=== PATIENT | female | born 1945 | race African-American/Black ===

== ENCOUNTER 2022-05-01 15:25 | Inpatient (IN) | payer MEDICARE ==
[~2022-05-01] VITALS: Ht 165.1 cm; Wt 114.8 kg
[2022-05-01 16:39] LABS: CHLORIDE 105 mEq/L (98-107)
[2022-05-01 16:43] LABS: BASOPHILS % 0.9 % (0.0-2.0); EOSINOPHILS % 4.1 % (0.0-5.0); HEMATOCRIT. 36.4 % (36.0-48.0); HEMOGLOBIN. 11.3 g/dL (12.0-16.0); LYMPHOCYTES % 13.6 % (20.0-50.0); MEAN CORPUSCULAR HEMOGLOBIN 25.5 pg (28.0-32.0); MEAN PLATELET VOLUME 8.7 fl (7.4-10.4); MONOCYTES % 14.5 % (2.0-8.0); NEUTROPHILS % 66.9 % (40.0-76.0); PLATELET 177 x1000/uL (130-400); RED BLOOD CELL COUNT 4.45 mill/uL (4.2-5.4); RED CELL DISTRIBUTION WIDTH 18.9 % (11.6-14.6)
[2022-05-01] MEDS ORDERED: PIPERACILLIN/TAZ 3.375G PREMIX 50 ML IV NR (18:11)
[2022-05-01] MEDS ORDERED: VANCOMYCIN 1GM PMX (XELLIA) 200 ML IV NR (18:15)
[2022-05-01] MEDS ORDERED: VANCOMYCIN 1G PREMIX 200 ML IV NR (20:45)
[2022-05-01] MEDS ORDERED: ACETAMINOPHEN 325MG TABLET PO PRN ×2 (21:00)
[2022-05-01] MEDS: FAMOTIDINE 20MG TABLET PO SCH (21:00)
[2022-05-01] MEDS ORDERED: NITROGLYCERIN 0.4MG TABLET SL SL PRN (21:00)
[2022-05-01] MEDS ORDERED: GUAIFENESIN 200MG/10ML SUGAR FREE UDC PO PRN (21:00)
[2022-05-01] MEDS ORDERED: MAGNESIUM/ALUMINUM HYDROXIDE/SIMETHICONE 30ML UDC PO PRN (21:00)
[2022-05-01] MEDS ORDERED: DOCUSATE SODIUM 100MG CAPSULE PO PRN (21:00)
[2022-05-01] MEDS ORDERED: ONDANSETRON HCL 4MG/2ML INJ IV PRN (21:00)
[2022-05-01] MEDS ORDERED: ZOLPIDEM TARTRATE 5MG TABLET PO PRN (21:00)
[2022-05-01] MEDS ORDERED: CLONIDINE 0.1MG TABLET PO PRN (21:00)
[2022-05-01] MEDS ORDERED: IPRATROPIUM/ALBUTEROL 0.5-3(2.5)MG/3ML NEB NEB PRN (21:00)
[2022-05-01 21:35] LABS: T4 FREE 1.09 ng/dL (0.76-1.46)
[2022-05-01 21:51] LABS: FOLIC ACID (FOLATE) SERUM 8.1 ng/mL (>5.38)
[2022-05-01] MEDS: ASCORBIC ACID 500 MG TABLET PO SCH (22:59)
[2022-05-01] MEDS: ENOXAPARIN 40MG/0.4ML SYR SUBCUT SCH (22:59)
[2022-05-01 23:38] LABS: CREATINE KINASE 13 IU/L (26-192); CREATINE KINASE MB FRACTION < 1.0 ng/mL (0.5-3.6)
[2022-05-02] VITALS (7 sets, daily range): BP systolic 99–135; BP diastolic 48–69
[2022-05-02] MEDS ORDERED: APIX2.5T PO (04:03)
[2022-05-02] MEDS ORDERED: SERT20OR PO (04:03)
[2022-05-02] MEDS ORDERED: IPRATROPIUM BROMIDE (05:55)
[2022-05-02] MEDS ORDERED: PANT40TA51 MT (05:55)
[2022-05-02] MEDS ORDERED: LEVA0.6320 NEB (05:55)
[2022-05-02] MEDS ORDERED: ONDA4TAB50 PO (05:55)
[2022-05-02] MEDS ORDERED: METO-539 PO (05:55)
[2022-05-02] MEDS ORDERED: DIGO125T80 PO (05:55)
[2022-05-02] MEDS ORDERED: SERT20OR6 PO (05:55)
[2022-05-02] MEDS ORDERED: APIX5TAB PO (05:55)
[2022-05-02] MEDS ORDERED: ATOR10TA69 PO (05:55)
[2022-05-02] MEDS ORDERED: FURO40TA5 PO (05:55)
[2022-05-02] MEDS ORDERED: PIPERACILLIN/TAZ 3.375G PREMIX 50 ML IV SCH (06:00)
[2022-05-02] MEDS ORDERED: VANCOMYCIN 750 MG in DEXT 5% WATER 250 ML IV SCH (09:00)
[2022-05-02] MEDS: ZINC SULFATE 220 MG ( 50 ) CAPSULE PO SCH (09:51)
[2022-05-02] MEDS: FAMOTIDINE 20MG TABLET PO SCH ×2 (09:52→22:35)
[2022-05-02] MEDS: DEXAMETHASONE 10 MG/ML VIAL IV SCH (09:52)
[2022-05-02] MEDS: ASCORBIC ACID 500 MG TABLET PO SCH ×2 (09:52→22:35)
[2022-05-02] MEDS: CHOLECALCIFEROL (D3) 1000 UNIT TABLET PO SCH (09:52)
[2022-05-02] MEDS: ASPIRIN 81MG EC TABLET PO SCH (09:52)
[2022-05-02 11:27] LABS: HEMATOCRIT. 36.1 % (36.0-48.0); HEMOGLOBIN. 11.1 g/dL (12.0-16.0); MEAN CORPUSCULAR HEMOGLOBIN 25.3 pg (28.0-32.0); MEAN CORPUSCULAR VOLUME 82.3 fL (81.0-99.0); MEAN PLATELET VOLUME 8.7 fl (7.4-10.4); PLATELET 163 x1000/uL (130-400); RED BLOOD CELL COUNT 4.39 mill/uL (4.2-5.4)
[2022-05-02 11:38] LABS: CHLORIDE 103 mEq/L (98-107)
[2022-05-02 11:46] LABS: CREATINE KINASE 16 IU/L (26-192); CREATINE KINASE MB FRACTION < 1.0 ng/mL (0.5-3.6)
[2022-05-02 11:49] LABS: PHOSPHORUS 2.4 mg/dL (2.5-4.9)
[2022-05-02] MEDS: PIPERACILLIN/TAZOBACTAM 3.375 G in DEXTROSE 5% WATER 50 ML IV SCH ×2 (14:15→22:35)
[2022-05-02 14:51] LABS: PLATELET ESTIMATE NORMAL
[2022-05-02] MEDS ORDERED: ALBUTEROL 6.7GM HFA INHALER ORI PRN (16:00)
[2022-05-02] MEDS: ENOXAPARIN 40MG/0.4ML SYR SUBCUT SCH (22:35)
[2022-05-03] VITALS: BP 107/48
[2022-05-03 04:00] VITALS: BP 124/66
[2022-05-03] MEDS: PIPERACILLIN/TAZOBACTAM 3.375 G in DEXTROSE 5% WATER 50 ML IV SCH ×3 (05:20→21:53)
[2022-05-03 08:00] VITALS: BP 93/51
[2022-05-03] MEDS: CHOLECALCIFEROL (D3) 1000 UNIT TABLET PO SCH (08:30)
[2022-05-03] MEDS: ZINC SULFATE 220 MG ( 50 ) CAPSULE PO SCH (08:30)
[2022-05-03] MEDS: SERTRALINE HCL 50MG TABLET PO SCH (08:30)
[2022-05-03] MEDS: ASCORBIC ACID 500 MG TABLET PO SCH ×2 (08:30→21:54)
[2022-05-03] MEDS: DEXAMETHASONE 10 MG/ML VIAL IV SCH (08:30)
[2022-05-03] MEDS: FAMOTIDINE 20MG TABLET PO SCH (08:30)
[2022-05-03] MEDS: ASPIRIN 81MG EC TABLET PO SCH ×2 (08:30→08:33)
[2022-05-03] MEDS ORDERED: VANCOMYCIN 750MG PREMIX 150 ML IV SCH (11:00)
[2022-05-03 20:00] VITALS: BP 139/76
[2022-05-03] MEDS: ENOXAPARIN 40MG/0.4ML SYR SUBCUT SCH (21:53)
[2022-05-03] MEDS: FLUTICASONE PROPIONATE 50MCG/SPRAY BOTTLE BOTHNSTRLS SCH (21:53)
[2022-05-04] VITALS: BP 155/76
[2022-05-04 04:00] VITALS: BP_SYST 131; BP_SYST 140; BP_DIAS 69; BP_DIAS 76
[2022-05-04] MEDS: PIPERACILLIN/TAZOBACTAM 3.375 G in DEXTROSE 5% WATER 50 ML IV SCH ×3 (06:31→21:11)
[2022-05-04 08:00] VITALS: BP 130/77
[2022-05-04] MEDS: ZINC SULFATE 220 MG ( 50 ) CAPSULE PO SCH (08:43)
[2022-05-04] MEDS: ASPIRIN 81MG EC TABLET PO SCH (08:43)
[2022-05-04] MEDS: DEXAMETHASONE 10 MG/ML VIAL IV SCH (08:43)
[2022-05-04] MEDS: CHOLECALCIFEROL (D3) 1000 UNIT TABLET PO SCH (08:43)
[2022-05-04] MEDS: FAMOTIDINE 20MG TABLET PO SCH (08:43)
[2022-05-04] MEDS: FLUTICASONE PROPIONATE 50MCG/SPRAY BOTTLE BOTHNSTRLS SCH ×2 (08:44→21:23)
[2022-05-04] MEDS: ASCORBIC ACID 500 MG TABLET PO SCH ×2 (08:44→21:11)
[2022-05-04] MEDS: SERTRALINE HCL 50MG TABLET PO SCH (08:44)
[2022-05-04 12:00] VITALS: BP 141/82
[2022-05-04] MEDS: VANCOMYCIN 1G PREMIX 200 ML IV SCH (12:01)
[2022-05-04 16:00] VITALS: BP 155/88
[2022-05-04 20:00] VITALS: BP 136/74
[2022-05-04] MEDS: ENOXAPARIN 30MG/0.3ML SYR SUBCUT SCH (21:13)
[2022-05-05] VITALS (7 sets, daily range): BP systolic 131–160; BP diastolic 67–86
[2022-05-05] MEDS: PIPERACILLIN/TAZOBACTAM 3.375 G in DEXTROSE 5% WATER 50 ML IV SCH ×3 (06:13→22:25)
[2022-05-05] MEDS: FLUTICASONE PROPIONATE 50MCG/SPRAY BOTTLE BOTHNSTRLS SCH ×2 (09:09→22:26)
[2022-05-05] MEDS: FAMOTIDINE 20MG TABLET PO SCH (09:09)
[2022-05-05] MEDS: DEXAMETHASONE 10 MG/ML VIAL IV SCH (09:09)
[2022-05-05] MEDS: ASCORBIC ACID 500 MG TABLET PO SCH ×2 (09:09→22:26)
[2022-05-05] MEDS: SERTRALINE HCL 50MG TABLET PO SCH (09:09)
[2022-05-05] MEDS: ZINC SULFATE 220 MG ( 50 ) CAPSULE PO SCH (09:09)
[2022-05-05] MEDS: CHOLECALCIFEROL (D3) 1000 UNIT TABLET PO SCH (09:09)
[2022-05-05] MEDS: ASPIRIN 81MG EC TABLET PO SCH (09:09)
[2022-05-05] MEDS: ENOXAPARIN 30MG/0.3ML SYR SUBCUT SCH ×2 (09:10→22:26)
[2022-05-05] MEDS: VANCOMYCIN 1G PREMIX 200 ML IV SCH (12:03)
[2022-05-06] VITALS: BP 147/76
[2022-05-06 04:00] VITALS: BP 142/80
[2022-05-06] MEDS: PIPERACILLIN/TAZOBACTAM 3.375 G in DEXTROSE 5% WATER 50 ML IV SCH ×3 (06:59→22:28)
[2022-05-06 08:00] VITALS: BP 131/73
[2022-05-06] MEDS: FLUTICASONE PROPIONATE 50MCG/SPRAY BOTTLE BOTHNSTRLS SCH (09:28)
[2022-05-06] MEDS: DEXAMETHASONE 10 MG/ML VIAL IV SCH (09:28)
[2022-05-06] MEDS: ASPIRIN 81MG EC TABLET PO SCH (09:28)
[2022-05-06] MEDS: SERTRALINE HCL 50MG TABLET PO SCH (09:28)
[2022-05-06] MEDS: FAMOTIDINE 20MG TABLET PO SCH (09:28)
[2022-05-06] MEDS: ZINC SULFATE 220 MG ( 50 ) CAPSULE PO SCH (09:28)
[2022-05-06] MEDS: CHOLECALCIFEROL (D3) 1000 UNIT TABLET PO SCH (09:28)
[2022-05-06] MEDS: ASCORBIC ACID 500 MG TABLET PO SCH ×2 (09:28→22:28)
[2022-05-06] MEDS: ENOXAPARIN 30MG/0.3ML SYR SUBCUT SCH ×2 (09:29→22:28)
[2022-05-06 12:00] VITALS: BP 136/74
[2022-05-06] MEDS: VANCOMYCIN 1G PREMIX 200 ML IV SCH (13:09)
[2022-05-06 16:00] VITALS: BP 121/79
[2022-05-06 20:00] VITALS: BP 142/76
[2022-05-07] VITALS: BP 143/85
[2022-05-07 04:00] VITALS: BP 145/77
[2022-05-07 08:00] VITALS: BP 143/87
[2022-05-07] MEDS: DEXAMETHASONE 10 MG/ML VIAL IV SCH (10:08)
[2022-05-07] MEDS: ASCORBIC ACID 500 MG TABLET PO SCH ×2 (10:08→21:08)
[2022-05-07] MEDS: SERTRALINE HCL 50MG TABLET PO SCH (10:08)
[2022-05-07] MEDS: ENOXAPARIN 30MG/0.3ML SYR SUBCUT SCH ×2 (10:08→21:08)
[2022-05-07] MEDS: FAMOTIDINE 20MG TABLET PO SCH (10:08)
[2022-05-07] MEDS: ZINC SULFATE 220 MG ( 50 ) CAPSULE PO SCH (10:09)
[2022-05-07] MEDS: CHOLECALCIFEROL (D3) 1000 UNIT TABLET PO SCH (10:09)
[2022-05-07] MEDS: ASPIRIN 81MG EC TABLET PO SCH (10:09)
[2022-05-07 12:00] VITALS: BP 134/87
[2022-05-07 16:00] VITALS: BP 117/80
[2022-05-07 20:00] VITALS: BP 144/74
[2022-05-07] MEDS: ZOLPIDEM TARTRATE 5MG TABLET PO PRN (21:15)
[2022-05-08] VITALS: BP 152/77
[2022-05-08 08:00] VITALS: BP 133/70
[2022-05-08] MEDS: DEXAMETHASONE 10 MG/ML VIAL IV SCH ×2 (08:50→11:04)
[2022-05-08] MEDS: ENOXAPARIN 30MG/0.3ML SYR SUBCUT SCH ×2 (08:50→21:29)
[2022-05-08] MEDS: ASPIRIN 81MG EC TABLET PO SCH (08:50)
[2022-05-08] MEDS: FAMOTIDINE 20MG TABLET PO SCH (08:50)
[2022-05-08] MEDS: CHOLECALCIFEROL (D3) 1000 UNIT TABLET PO SCH (08:50)
[2022-05-08] MEDS: SERTRALINE HCL 50MG TABLET PO SCH (08:50)
[2022-05-08] MEDS: ZINC SULFATE 220 MG ( 50 ) CAPSULE PO SCH (08:50)
[2022-05-08] MEDS: ASCORBIC ACID 500 MG TABLET PO SCH ×2 (08:50→21:29)
[2022-05-08 12:00] VITALS: BP 119/67
[2022-05-08 16:00] VITALS: BP 118/62
[2022-05-08 20:00] VITALS: BP 135/77
[2022-05-08] MEDS: ZOLPIDEM TARTRATE 5MG TABLET PO PRN (22:45)
[2022-05-09] VITALS: BP 149/82
[2022-05-09 04:00] VITALS: BP 149/74
[2022-05-09 08:00] VITALS: BP 143/87
[2022-05-09] MEDS: ASCORBIC ACID 500 MG TABLET PO SCH (08:29)
[2022-05-09] MEDS: ASPIRIN 81MG EC TABLET PO SCH (08:29)
[2022-05-09] MEDS: ZINC SULFATE 220 MG ( 50 ) CAPSULE PO SCH (08:29)
[2022-05-09] MEDS: CHOLECALCIFEROL (D3) 1000 UNIT TABLET PO SCH (08:29)
[2022-05-09] MEDS: FAMOTIDINE 20MG TABLET PO SCH (08:29)
[2022-05-09] MEDS: SERTRALINE HCL 50MG TABLET PO SCH (08:29)
[2022-05-09] MEDS: ENOXAPARIN 30MG/0.3ML SYR SUBCUT SCH (08:30)
[2022-05-09] MEDS: DEXAMETHASONE 10 MG/ML VIAL IV SCH (08:30)
[2022-05-09 12:00] VITALS: BP 128/64
[2022-05-09 12:33] VITALS: BP 128/64
== END 2022-05-09 15:31 | DRG 871 ==
LOC: ER 15:25 → 7WST 18:07 → ENRESERV 20:20 → SUPCPDRO 20:36 → 7EST 23:50
PROVIDERS: ADMIT Internal Medicine; ATTEND Internal Medicine
DX: A41.89 Other specified sepsis (principal); G92.8 Other toxic encephalopathy; J12.82 Pneumonia due to coronavirus disease 2019; U07.1 COVID-19; J96.01 Acute respiratory failure with hypoxia; N17.0 Acute kidney failure with tubular necrosis; E44.0 Moderate protein-calorie malnutrition; I13.0 Hypertensive heart and chronic kidney disease with heart failure and stage 1 through stage 4 chronic kidney disease, or unspecified chronic kidney disease; I50.40 Unspecified combined systolic (congestive) and diastolic (congestive) heart failure; Z68.41 Body mass index [BMI] 40.0-44.9, adult; E78.00 Pure hypercholesterolemia, unspecified; F32.A Depression, unspecified; I48.91 Unspecified atrial fibrillation; K21.9 Gastro-esophageal reflux disease without esophagitis; E78.5 Hyperlipidemia, unspecified; N18.9 Chronic kidney disease, unspecified; R65.20 Severe sepsis without septic shock; D64.9 Anemia, unspecified; Z88.5 Allergy status to narcotic agent; Z78.9 Other specified health status
CPT/HCPCS: 36415; 71045; 80048; 80053; 80061; 80202; 82550; 82553; 82607; 82746; 83036; 83540; 83550; 83605; 83735; 83880; 84100; 84439; 84443; 84484; 85025; 87077; 87426; 93005; 93970; 99285; C9803; J1100; J1650; J2405; J2543; J3370; J7060

== ENCOUNTER 2023-06-20 01:41 | Inpatient (IN) | payer MEDICARE ==
[2023-06-20] VITALS (7 sets, daily range): BP systolic 92–152; BP diastolic 50–96; PULSE 87–111; RESP 16–28; TEMP 97.2–98.4
[~2023-06-20] VITALS: Ht 167.6 cm; Wt 81.6 kg
[~2023-06-20 01:41] MED LIST: APIX2.5T PO; APIX5TAB PO; ATOR10TA69 PO; DIGO125T80 PO; FURO40TA5 PO; IPRATROPIUM BROMIDE; LEVA0.6320 NEB; METO-539 PO; ONDA4TAB50 PO; PANT40TA51 MT; SERT20OR PO; SERT20OR6 PO
[2023-06-20] MEDS ORDERED: ASPIRIN 81MG TABLET PO ONE (02:00)
[2023-06-20] MEDS ORDERED: SODIUM CHLORIDE 0.9% 1,000 ML IV ONE (02:00)
[2023-06-20] MEDS ORDERED: MIDAZOLAM HCL 2 MG/2 ML VIAL IV ONE (02:15)
[2023-06-20 02:23] LABS: HEMOGLOBIN. 10.2 g/dL (12.0-16.0); MEAN CORPUSCULAR HEMOGLOBIN 25.5 pg (28.0-32.0); MEAN CORPUSCULAR HGB CONC 29.2 g/dL (31.0-37.0); MEAN CORPUSCULAR VOLUME 87.3 fL (81.0-99.0); MEAN PLATELET VOLUME 8.1 fl (7.4-10.4); PLATELET 208 x1000/uL (130-400); RED CELL DISTRIBUTION WIDTH 23.3 % (11.6-14.6); WHITE BLOOD COUNT 19.4 x1000/uL (4.5-11.0)
[2023-06-20 02:27] LABS: DIFFERENTIAL COMMENT 1
[2023-06-20 02:32] LABS: CHLORIDE 111 mEq/L (98-107); INDEX HEMOLYSI 2 (1-3); INDEX ICTERIC 1 (1-4); INDEX LIPEMIC 1 (1-3); POTASSIUM 4.7 mEq/L (3.5-5.1); SODIUM 139 mEq/L (136-145)
[2023-06-20 02:41] LABS: PLATELET ESTIMATE NORMAL
[2023-06-20 02:42] LABS: ALANINE AMINOTRANSFERASE 17 IU/L (13-61); ALBUMIN 2.6 g/dL (3.4-5.0); ASPARTATE AMINOTRANSFERASE 18 IU/L (15-37); BILIRUBIN TOTAL 1.4 mg/dL (0.1-1.0); CALCIUM 8.4 mg/dL (8.5-10.1); CARBON DIOXIDE 25 mEq/L (21-32); CREATININE 1.2 mg/dL (0.6-1.3); GLUCOSE 114 mg/dL (70-105); NT PRO B-TYPE NATRIURETIC PEP 7568 pg/mL (5-125); PROTEIN TOTAL 6.3 g/dL (6.0-8.3); TROPONIN I HIGH SENSITIVITY 12 ng/L (<54); UREA NITROGEN BLOOD 27 mg/dL (7-21)
[2023-06-20 02:48] LABS: BG BASE EXCESS -0.6 mmol/L (-2.0-2.0); BG CARBOXYHEMOGLOBIN 1.1 % (0.5-1.5); BG DEOXYHEMOGLOBIN 5.3 % (0.0-5.0); BG FRACTION INSPIRED OXYGEN 36; BG METHEMOGLOBIN 0.2 % (0.0-1.5); BG OXYGEN SATURATION 94.6 % (92.0-98.5); BG OXYHEMOGLOBIN 93.4 % (94.0-97.0); BG PCO2 51.9 mmHg (35.0-45.0); BG PH 7.317 (7.350-7.450); BG PO2 75.1 mmHg (75.0-100.0); BG SAMPLE SITE RIGHT RADIAL; BG TOTAL HEMOGLOBIN 10.1 g/dL (12.0-18.0); BG VENT MODE NASAL CANNULA
[2023-06-20 03:31] LABS: INR 1.2; PARTIAL THROMBOPLASTIN TIME 32.6 sec (23.4-31.0); PROTHROMBIN TIME 12.5 sec (9.6-11.0)
[2023-06-20] MEDS ORDERED: CEFTRIAXONE 1GM PREMIX 50 ML IV ONE (04:15)
[2023-06-20] MEDS ORDERED: AZITHROMYCIN 500MG/250ML 250 ML IV ONE (04:15)
[2023-06-20] MEDS ORDERED: ENOXAPARIN 120MG/0.8ML SYR SUBCUT ONE (04:15)
[2023-06-20 05:36] LABS: LACTIC ACID 2.4 mmol/L (0.4-2.0)
[2023-06-20] MEDS ORDERED: GUAIFENESIN 200MG/10ML SUGAR FREE UDC PO PRN (06:00)
[2023-06-20] MEDS ORDERED: DOCUSATE SODIUM 100MG CAPSULE PO PRN (06:00)
[2023-06-20] MEDS ORDERED: CLONIDINE 0.1MG TABLET PO PRN (06:00)
[2023-06-20] MEDS ORDERED: CEFTRIAXONE 1GM PREMIX 50 ML IV SCH (06:00)
[2023-06-20] MEDS ORDERED: ACETAMINOPHEN 325MG TABLET PO PRN (06:00)
[2023-06-20] MEDS ORDERED: MAGNESIUM/ALUMINUM HYDROXIDE/SIMETHICONE 30ML UDC PO PRN (06:00)
[2023-06-20 07:12] LABS: CLARITY URINE TURBID (CLEAR); COLOR URINE ORANGE (YELLOW); GLUCOSE URINE NEGATIVE (NEGATIVE); KETONES URINE NEGATIVE (NEGATIVE); LEUKOCYTE ESTERASE URINE 3+ (NEGATIVE); NITRITE URINE POSITIVE (NEGATIVE); OCCULT BLOOD URINE 3+ (NEGATIVE); PROTEIN URINE 3+ (NEGATIVE); SPECIFIC GRAVITY URINE 1.018 (1.005-1.030)
[2023-06-20 07:41] LABS: INDEX HEMOLYSI 1 (1-3)
[2023-06-20 07:44] LABS: BACTERIA URINE 3+; RBC URINE 50-100 /hpf (0-2); SQUAMOUS EPITHELIAL CELL URINE 1+ /lpf (RARE/1+); WBC URINE TNTC /hpf (0-2)
[2023-06-20 07:45] LABS: AMORPHOUS SEDIMENT URINE 3+ /lpf
[2023-06-20 07:50] LABS: CREATINE KINASE 13 IU/L (26-192); CREATINE KINASE MB FRACTION < 1.0 ng/mL (0.5-3.6); TROPONIN I HIGH SENSITIVITY 14 ng/L (<54)
[2023-06-20 08:17] LABS: *AMPHETAMINES SCREEN URINE NEGATIVE (NEGATIVE); *BARBITURATES SCREEN URINE NEGATIVE (NEGATIVE); *BENZODIAZEPINES SCREEN URINE PRESUMTIVE POSITIVE (NEGATIVE); *COCAINE SCREEN URINE NEGATIVE (NEGATIVE); CANNABINOID URINE SCREEN NEGATIVE (NEGATIVE); ECSTASY MDMA SCREEN URINE NEGATIVE (NEGATIVE); METHADONE URINE SCREEN NEGATIVE (NEGATIVE); OPIATES URINE SCREEN NEGATIVE (NEGATIVE); PHENCYCLIDINE URINE SCREEN NEGATIVE (NEGATIVE)
[2023-06-20] MEDS ORDERED: NITROGLYCERIN 0.4MG TABLET SL SL PRN (09:15)
[2023-06-20] MEDS: PANTOPRAZOLE SODIUM 40 MG/VIAL IV SCH (10:24)
[2023-06-20] MEDS: DILTIAZEM HCL 60MG TABLET PO SCH ×4 (10:24→23:14)
[2023-06-20] MEDS ORDERED: VANCOMYCIN 1.5GM PMX (XELLIA) 300 ML IV SCH (12:00)
[2023-06-20] MEDS: ACETYLCYSTEINE 200MG/ML 20% VIAL 10ML PO SCH ×2 (12:00→21:00)
[2023-06-20] MEDS ORDERED: VANCOMYCIN 1,500 MG in DEXT 5% WATER 250 ML IV SCH (12:00)
[2023-06-20] MEDS: MEROPENEM 1,000 MG in SODIUM CHLORIDE 0.9% 100 ML IV SCH ×2 (13:00→23:14)
[2023-06-20 15:25] LABS: INDEX HEMOLYSI 1 (1-3); INDEX ICTERIC 1 (1-4); INDEX LIPEMIC 1 (1-3)
[2023-06-20 15:31] LABS: IRON 16 ug/dL (50-175); TOTAL IRON BINDING CAPACITY 416 ug/dL (250-450)
[2023-06-20 15:56] LABS: FOLIC ACID (FOLATE) SERUM 8.2 ng/mL (>5.38)
[2023-06-20] MEDS ORDERED: PNEUMOCOCCAL 23-VAL P-SAC VAC 0.5 ML IM ONE (17:00)
[2023-06-20 17:37] LABS: INDEX HEMOLYSI 1 (1-3)
[2023-06-20 17:45] LABS: CREATINE KINASE 10 IU/L (26-192); CREATINE KINASE MB FRACTION < 1.0 ng/mL (0.5-3.6); TROPONIN I HIGH SENSITIVITY 13 ng/L (<54)
[2023-06-20] MEDS: ENOXAPARIN 120MG/0.8ML SYR SUBCUT SCH (18:09)
[2023-06-20] MEDS: ATORVASTATIN CALCIUM 10MG TABLET PO SCH (20:31)
[2023-06-20] MEDS: GUAIFENESIN 600MG ER TABLET PO SCH (20:31)
[2023-06-20] MEDS: ASCORBIC ACID 500 MG TABLET PO SCH (20:31)
[2023-06-20] MEDS ORDERED: ZOLPIDEM TARTRATE 5MG TABLET PO PRN (21:00)
[2023-06-20] MEDS: IPRATROPIUM/ALBUTEROL 0.5-3(2.5)MG/3ML NEB HHN SCH (21:41)
[2023-06-20 22:52] LABS: HEPATITIS B SURFACE ANTIGEN NEGATIVE
[2023-06-20 23:21] LABS: HEPATITIS C VIR.AB 0.14 INDEXVAL (0.00-0.80)
[2023-06-21] VITALS (10 sets, daily range): BP systolic 87–131; BP diastolic 34–62; PULSE 80–109; RESP 16–22; TEMP 97.5–98.1; O2SAT 98
[2023-06-21] MEDS: IPRATROPIUM/ALBUTEROL 0.5-3(2.5)MG/3ML NEB HHN SCH ×4 (02:15→21:18)
[2023-06-21] MEDS: ENOXAPARIN 120MG/0.8ML SYR SUBCUT SCH (05:43)
[2023-06-21] MEDS: DILTIAZEM HCL 60MG TABLET PO SCH ×4 (05:43→23:57)
[2023-06-21] MEDS ORDERED: CEFTRIAXONE 1,000 MG in DEXTROSE 5% WATER 50 ML IV SCH (06:00)
[2023-06-21 07:42] LABS: HEMATOCRIT. 28.3 % (36.0-48.0); HEMOGLOBIN. 8.1 g/dL (12.0-16.0); MEAN CORPUSCULAR HGB CONC 28.6 g/dL (31.0-37.0); MEAN CORPUSCULAR VOLUME 87.4 fL (81.0-99.0); MEAN PLATELET VOLUME 8.3 fl (7.4-10.4); PLATELET 134 x1000/uL (130-400); RED BLOOD CELL COUNT 3.24 mill/uL (4.2-5.4); RED CELL DISTRIBUTION WIDTH 23.4 % (11.6-14.6)
[2023-06-21 07:51] LABS: DIFFERENTIAL COMMENT 1
[2023-06-21 07:53] LABS: CHLORIDE 111 mEq/L (98-107); INDEX HEMOLYSI 1 (1-3); INDEX ICTERIC 1 (1-4); INDEX LIPEMIC 1 (1-3); POTASSIUM 3.8 mEq/L (3.5-5.1); SODIUM 140 mEq/L (136-145)
[2023-06-21 08:09] LABS: ALANINE AMINOTRANSFERASE 12 IU/L (13-61); ALBUMIN 1.9 g/dL (3.4-5.0); ASPARTATE AMINOTRANSFERASE 10 IU/L (15-37); BILIRUBIN TOTAL 0.7 mg/dL (0.1-1.0); CALCIUM 7.7 mg/dL (8.5-10.1); CARBON DIOXIDE 27 mEq/L (21-32); CREATININE 1.2 mg/dL (0.6-1.3); GLUCOSE 100 mg/dL (70-105); PROTEIN TOTAL 5.3 g/dL (6.0-8.3); T4 FREE 0.87 ng/dL (0.76-1.46); THYROID STIMULATING HORMONE 0.32 uIU/mL (0.36-3.74); UREA NITROGEN BLOOD 31 mg/dL (7-21)
[2023-06-21] MEDS: BUDESONIDE 0.5MG/2ML NEB HHN SCH ×2 (08:41→21:18)
[2023-06-21] MEDS: FUROSEMIDE 40MG/4ML VIAL IVP SCH (09:03)
[2023-06-21] MEDS: PANTOPRAZOLE SODIUM 40 MG/VIAL IV SCH (09:03)
[2023-06-21] MEDS: GUAIFENESIN 600MG ER TABLET PO SCH ×2 (09:03→20:30)
[2023-06-21] MEDS: ZINC SULFATE 220 MG ( 50 ) CAPSULE PO SCH (09:04)
[2023-06-21] MEDS: ASPIRIN 81MG EC TABLET PO SCH (09:05)
[2023-06-21] MEDS: ASCORBIC ACID 500 MG TABLET PO SCH ×2 (09:05→20:29)
[2023-06-21] MEDS: METOPROLOL TARTRATE 50MG TABLET PO SCH ×2 (09:05→17:16)
[2023-06-21] MEDS: MEROPENEM 1,000 MG in SODIUM CHLORIDE 0.9% 100 ML IV SCH ×2 (13:33→23:58)
[2023-06-21] MEDS: VANCOMYCIN 1G PREMIX 200 ML IV SCH (13:33)
[2023-06-21] MEDS: ACETYLCYSTEINE 200MG/ML 20% VIAL 4ML PO SCH ×2 (13:41→20:29)
[2023-06-21 15:27] LABS: PLATELET ESTIMATE NORMAL; TEAR DROP CELLS FEW
[2023-06-21 15:28] LABS: ANISOCYTOSIS 2+
[2023-06-21] MEDS: ENOXAPARIN 100MG/ML SYR SUBCUT SCH (17:17)
[2023-06-21] MEDS: ATORVASTATIN CALCIUM 10MG TABLET PO SCH (20:30)
[2023-06-22] VITALS (8 sets, daily range): BP systolic 101–138; BP diastolic 37–57; PULSE 56–98; RESP 18–20; TEMP 97–98.4
[2023-06-22] MEDS: DILTIAZEM HCL 60MG TABLET PO SCH ×4 (05:31→17:56)
[2023-06-22] MEDS: ENOXAPARIN 100MG/ML SYR SUBCUT SCH ×2 (05:33→18:00)
[2023-06-22 06:25] LABS: POTASSIUM 3.6 mEq/L (3.5-5.1)
[2023-06-22 06:36] LABS: CREATININE 1.3 mg/dL (0.6-1.3)
[2023-06-22] MEDS: BUDESONIDE 0.5MG/2ML NEB HHN SCH (08:45)
[2023-06-22] MEDS: IPRATROPIUM/ALBUTEROL 0.5-3(2.5)MG/3ML NEB HHN SCH ×2 (08:45→13:46)
[2023-06-22] MEDS: FUROSEMIDE 40MG/4ML VIAL IVP SCH (09:06)
[2023-06-22] MEDS: GUAIFENESIN 600MG ER TABLET PO SCH ×2 (09:06→20:57)
[2023-06-22] MEDS: SERTRALINE HCL 25MG TABLET PO SCH (09:06)
[2023-06-22] MEDS: ASCORBIC ACID 500 MG TABLET PO SCH ×2 (09:06→20:56)
[2023-06-22] MEDS: PANTOPRAZOLE SODIUM 40 MG/VIAL IV SCH (09:06)
[2023-06-22] MEDS: ASPIRIN 81MG EC TABLET PO SCH (09:06)
[2023-06-22] MEDS: ZINC SULFATE 220 MG ( 50 ) CAPSULE PO SCH (09:13)
[2023-06-22] MEDS: METOPROLOL TARTRATE 50MG TABLET PO SCH ×2 (09:13→17:00)
[2023-06-22] MEDS: ACETAMINOPHEN 325MG TABLET PO PRN (09:16)
[2023-06-22] MEDS: MEROPENEM 1,000 MG in SODIUM CHLORIDE 0.9% 100 ML IV SCH (11:50)
[2023-06-22] MEDS: VANCOMYCIN 1G PREMIX 200 ML IV SCH (12:49)
[2023-06-22] MEDS ORDERED: APIX5TAB PO (19:25)
[2023-06-22] MEDS ORDERED: SERT-422 PO (19:25)
[2023-06-22] MEDS ORDERED: DIGO125T PO (19:29)
[2023-06-22] MEDS ORDERED: LIDO700A30 TP (19:29)
[2023-06-22] MEDS ORDERED: METO25TA6 PO (19:29)
[2023-06-22] MEDS ORDERED: ALBU18HF2 PO (19:29)
[2023-06-22] MEDS ORDERED: MONT-39 PO (19:29)
[2023-06-22] MEDS ORDERED: LOSA50TA41 PO (19:29)
[2023-06-22] MEDS ORDERED: P20 PO (19:29)
[2023-06-22] MEDS: ACETYLCYSTEINE 200MG/ML 20% VIAL 4ML PO SCH (20:55)
[2023-06-22] MEDS: ATORVASTATIN CALCIUM 10MG TABLET PO SCH (20:56)
[2023-06-23] VITALS (10 sets, daily range): BP systolic 101–143; BP diastolic 53–79; PULSE 79–108; RESP 17–20; TEMP 97.8–98; O2SAT 92–96
[2023-06-23] MEDS: BUDESONIDE 0.5MG/2ML NEB HHN SCH ×3 (00:16→13:30)
[2023-06-23] MEDS: IPRATROPIUM/ALBUTEROL 0.5-3(2.5)MG/3ML NEB HHN SCH ×5 (00:16→21:19)
[2023-06-23] MEDS: MEROPENEM 1,000 MG in SODIUM CHLORIDE 0.9% 100 ML IV SCH ×2 (00:39→12:27)
[2023-06-23] MEDS: ACETAMINOPHEN 325MG TABLET PO PRN ×2 (00:39→20:56)
[2023-06-23] MEDS: DILTIAZEM HCL 60MG TABLET PO SCH ×4 (00:41→17:55)
[2023-06-23] MEDS: ENOXAPARIN 100MG/ML SYR SUBCUT SCH ×2 (05:17→17:56)
[2023-06-23 06:12] LABS: HEMATOCRIT. 24.2 % (36.0-48.0); HEMOGLOBIN. 7.3 g/dL (12.0-16.0); MEAN CORPUSCULAR HGB CONC 30.1 g/dL (31.0-37.0); MEAN CORPUSCULAR VOLUME 83.2 fL (81.0-99.0); PLATELET 150 x1000/uL (130-400); RED BLOOD CELL COUNT 2.91 mill/uL (4.2-5.4); RED CELL DISTRIBUTION WIDTH 22.7 % (11.6-14.6); WHITE BLOOD COUNT 11.5 x1000/uL (4.5-11.0)
[2023-06-23 06:23] LABS: DIFFERENTIAL COMMENT 1
[2023-06-23 07:01] LABS: INDEX HEMOLYSI 1 (1-3); INDEX ICTERIC 1 (1-4); INDEX LIPEMIC 1 (1-3)
[2023-06-23 07:38] LABS: CALCIUM 8.2 mg/dL (8.5-10.1); CARBON DIOXIDE 31 mEq/L (21-32); CHLORIDE 107 mEq/L (98-107); GLUCOSE 92 mg/dL (70-105); POTASSIUM 3.3 mEq/L (3.5-5.1); SODIUM 143 mEq/L (136-145); UREA NITROGEN BLOOD 28 mg/dL (7-21)
[2023-06-23 08:02] LABS: DIGOXIN 0.1 ng/mL (0.9-2.0)
[2023-06-23] MEDS: GUAIFENESIN 600MG ER TABLET PO SCH ×2 (09:06→20:56)
[2023-06-23] MEDS: FUROSEMIDE 40MG/4ML VIAL IVP SCH ×2 (09:06→17:55)
[2023-06-23] MEDS: PANTOPRAZOLE SODIUM 40 MG/VIAL IV SCH (09:06)
[2023-06-23] MEDS: ACETYLCYSTEINE 200MG/ML 20% VIAL 4ML PO SCH ×2 (09:07→21:08)
[2023-06-23] MEDS: ASCORBIC ACID 500 MG TABLET PO SCH ×2 (09:07→20:56)
[2023-06-23] MEDS: ASPIRIN 81MG EC TABLET PO SCH (09:07)
[2023-06-23] MEDS: SERTRALINE HCL 25MG TABLET PO SCH (09:07)
[2023-06-23] MEDS: METOPROLOL TARTRATE 50MG TABLET PO SCH ×2 (09:07→17:55)
[2023-06-23] MEDS: ZINC SULFATE 220 MG ( 50 ) CAPSULE PO SCH (09:07)
[2023-06-23] MEDS ORDERED: POTASSIUM CHLORIDE 20MEQ TABLET SR PO NR (12:00)
[2023-06-23 12:59] LABS: ANISOCYTOSIS 2+; PLATELET ESTIMATE NORMAL
[2023-06-23] MEDS: ATORVASTATIN CALCIUM 10MG TABLET PO SCH (20:56)
[2023-06-24] VITALS (10 sets, daily range): BP systolic 86–129; BP diastolic 41–87; PULSE 58–107; RESP 16–22; TEMP 96.7–98.6; O2SAT 89–95
[2023-06-24] MEDS ORDERED: VANCOMYCIN 1G PREMIX 200 ML IV SCH
[2023-06-24] MEDS: MEROPENEM 1,000 MG in SODIUM CHLORIDE 0.9% 100 ML IV SCH ×2 (00:29→14:04)
[2023-06-24] MEDS: DILTIAZEM HCL 60MG TABLET PO SCH ×4 (00:43→17:14)
[2023-06-24] MEDS: IPRATROPIUM/ALBUTEROL 0.5-3(2.5)MG/3ML NEB HHN SCH ×3 (01:40→21:29)
[2023-06-24] MEDS: ENOXAPARIN 100MG/ML SYR SUBCUT SCH ×2 (05:50→17:14)
[2023-06-24] MEDS ORDERED: POTASSIUM CHLORIDE 20MEQ TABLET SR PO NR (08:00)
[2023-06-24] MEDS: ASCORBIC ACID 500 MG TABLET PO SCH ×2 (09:00→21:15)
[2023-06-24] MEDS: SERTRALINE HCL 25MG TABLET PO SCH (09:32)
[2023-06-24] MEDS: GUAIFENESIN 600MG ER TABLET PO SCH ×2 (09:32→21:15)
[2023-06-24] MEDS: ASPIRIN 81MG EC TABLET PO SCH (09:32)
[2023-06-24] MEDS: FUROSEMIDE 40MG/4ML VIAL IVP SCH ×2 (09:33→17:14)
[2023-06-24] MEDS: METOPROLOL TARTRATE 50MG TABLET PO SCH ×2 (09:33→17:14)
[2023-06-24] MEDS: PANTOPRAZOLE SODIUM 40 MG/VIAL IV SCH (09:33)
[2023-06-24] MEDS: ZINC SULFATE 220 MG ( 50 ) CAPSULE PO SCH (09:34)
[2023-06-24] MEDS ORDERED: SODIUM CHLORIDE 45ML SPRAY NS PRN (16:00)
[2023-06-24] MEDS: ACETAMINOPHEN 325MG TABLET PO PRN (21:15)
[2023-06-24] MEDS: ATORVASTATIN CALCIUM 10MG TABLET PO SCH (21:15)
[2023-06-24] MEDS ORDERED: SODIUM CHLORIDE 0.9% 250 ML IV ONE (22:00)
[2023-06-25] VITALS (11 sets, daily range): BP systolic 99–124; BP diastolic 45–61; PULSE 53–117; RESP 17–24; TEMP 96.3–98.1; O2SAT 95–98
[2023-06-25] MEDS: MEROPENEM 1,000 MG in SODIUM CHLORIDE 0.9% 100 ML IV SCH ×2 (00:53→13:42)
[2023-06-25] MEDS: IPRATROPIUM/ALBUTEROL 0.5-3(2.5)MG/3ML NEB HHN SCH ×2 (01:34→22:02)
[2023-06-25 03:32] LABS: HEMATOCRIT 23.1 % (36.0-48.0)
[2023-06-25 03:44] LABS: HEMOGLOBIN 6.9 g/dL (12.0-16.0)
[2023-06-25] MEDS: METOPROLOL TARTRATE 50MG TABLET PO SCH ×2 (09:00→13:31)
[2023-06-25] MEDS: FUROSEMIDE 40MG/4ML VIAL IVP SCH ×2 (09:11→16:32)
[2023-06-25] MEDS: PANTOPRAZOLE SODIUM 40 MG/VIAL IV SCH (09:11)
[2023-06-25] MEDS: ZINC SULFATE 220 MG ( 50 ) CAPSULE PO SCH (09:11)
[2023-06-25] MEDS: ASPIRIN 81MG EC TABLET PO SCH (09:12)
[2023-06-25] MEDS: ASCORBIC ACID 500 MG TABLET PO SCH ×2 (09:12→21:17)
[2023-06-25] MEDS: SERTRALINE HCL 25MG TABLET PO SCH (09:15)
[2023-06-25] MEDS: GUAIFENESIN 600MG ER TABLET PO SCH ×2 (09:15→21:17)
[2023-06-25] MEDS ORDERED: DESMOPRESSIN ACETATE 4MCG/ML AMP IV SCH (10:00)
[2023-06-25] MEDS: ACETAMINOPHEN 325MG TABLET PO PRN (14:18)
[2023-06-25] MEDS ORDERED: KETOROLAC 15MG/ML VIAL IV PRN (15:00)
[2023-06-25] MEDS ORDERED: MORPHINE SULFATE 2 MG/ML CPJ (NOT FOR IM USE) IV PRN (15:00)
[2023-06-25] MEDS ORDERED: AMPICILLIN SOD/SULBACTAM NA 1.5 G in SODIUM CHLORIDE 0.9% 50 ML IV SCH (16:00)
[2023-06-25] MEDS ORDERED: LORAZEPAM 0.5MG TABLET PO NR (16:30)
[2023-06-25] MEDS: IPRATROPIUM/ALBUTEROL 0.5-3(2.5)MG/3ML NEB HHN PRN (17:01)
[2023-06-25 17:14] LABS: HEMATOCRIT 24.9 % (36.0-48.0); HEMOGLOBIN 7.5 g/dL (12.0-16.0); MEAN CORPUSCULAR HEMOGLOBIN 23.5 pg (28.0-32.0); MEAN CORPUSCULAR HGB CONC 30.2 g/dL (31.0-37.0); MEAN CORPUSCULAR VOLUME 77.7 fL (81.0-99.0); PLATELET 237 x1000/uL (130-400); RED CELL DISTRIBUTION WIDTH 26.2 % (11.6-14.6); WHITE BLOOD COUNT 19.2 x1000/uL (4.5-11.0)
[2023-06-25] MEDS: ONDANSETRON HCL 4MG/2ML INJ IV PRN (17:16)
[2023-06-25] MEDS ORDERED: NALOXONE HCL 0.4MG/ML VIAL IV PRN (17:45)
[2023-06-25 19:21] LABS: BG BASE EXCESS 10.8 mmol/L (-2.0-2.0); BG CARBOXYHEMOGLOBIN 1.2 % (0.5-1.5); BG DEOXYHEMOGLOBIN 4.6 % (0.0-5.0); BG FRACTION INSPIRED OXYGEN 28; BG HCO3 ACT 36.4 mmol/L (22.0-26.0); BG METHEMOGLOBIN 0.1 % (0.0-1.5); BG OXYGEN SATURATION 95.3 % (92.0-98.5); BG OXYHEMOGLOBIN 94.1 % (94.0-97.0); BG PCO2 54.7 mmHg (35.0-45.0); BG PH 7.441 (7.350-7.450); BG PO2 76.3 mmHg (75.0-100.0); BG SAMPLE SITE RIGHT RADIAL; BG TOTAL HEMOGLOBIN 9.4 g/dL (12.0-18.0); BG VENT MODE COOL AEROSOL
[2023-06-25] MEDS: ATORVASTATIN CALCIUM 10MG TABLET PO SCH (21:16)
[2023-06-26] VITALS (13 sets, daily range): BP systolic 93–139; BP diastolic 47–82; PULSE 67–136; RESP 17–24; TEMP 96.4–98.3; O2SAT 93–95
[2023-06-26] MEDS: IPRATROPIUM/ALBUTEROL 0.5-3(2.5)MG/3ML NEB HHN SCH ×2 (02:08→17:13)
[2023-06-26 06:23] LABS: HEMATOCRIT. 22.7 % (36.0-48.0); MEAN CORPUSCULAR HEMOGLOBIN 24.3 pg (28.0-32.0); MEAN CORPUSCULAR HGB CONC 30.8 g/dL (31.0-37.0); MEAN CORPUSCULAR VOLUME 78.6 fL (81.0-99.0); MEAN PLATELET VOLUME 8.2 fl (7.4-10.4); PLATELET 225 x1000/uL (130-400); RED BLOOD CELL COUNT 2.88 mill/uL (4.2-5.4); RED CELL DISTRIBUTION WIDTH 25.6 % (11.6-14.6)
[2023-06-26 07:27] LABS: CALCIUM 8.4 mg/dL (8.5-10.1); POTASSIUM 5.1 mEq/L (3.5-5.1)
[2023-06-26 07:32] LABS: DIFFERENTIAL COMMENT 1
[2023-06-26 07:33] LABS: CREATININE 1.1 mg/dL (0.6-1.3)
[2023-06-26] MEDS: IPRATROPIUM/ALBUTEROL 0.5-3(2.5)MG/3ML NEB HHN PRN (08:03)
[2023-06-26 08:38] LABS: BG BASE EXCESS 11.3 mmol/L (-2.0-2.0); BG CARBOXYHEMOGLOBIN 1.4 % (0.5-1.5); BG DEOXYHEMOGLOBIN 9.1 % (0.0-5.0); BG FRACTION INSPIRED OXYGEN 28; BG METHEMOGLOBIN 0.4 % (0.0-1.5); BG OXYGEN SATURATION 90.7 % (92.0-98.5); BG OXYHEMOGLOBIN 89.1 % (94.0-97.0); BG PCO2 49.5 mmHg (35.0-45.0); BG PH 7.479 (7.350-7.450); BG PO2 60.4 mmHg (75.0-100.0); BG SAMPLE SITE LEFT RADIAL; BG TOTAL HEMOGLOBIN 7.9 g/dL (12.0-18.0); BG TOTAL RESPIRATORY RATE 28 b/min; BG VENT MODE COOL AEROSOL
[2023-06-26] MEDS: METOPROLOL TARTRATE 50MG TABLET PO SCH ×2 (09:00→17:03)
[2023-06-26] MEDS: ASCORBIC ACID 500 MG TABLET PO SCH ×2 (09:00→21:00)
[2023-06-26 10:49] LABS: HEMOGLOBIN 7.4 g/dL (12.0-16.0)
[2023-06-26] MEDS ORDERED: AMPICILLIN SOD/SULBACTAM NA 1.5 G in SODIUM CHLORIDE 0.9% 50 ML IV SCH (11:00)
[2023-06-26] MEDS ORDERED: CEFTRIAXONE 1GM PREMIX 50 ML IV SCH (12:30)
[2023-06-26] MEDS: PANTOPRAZOLE SODIUM 40 MG/VIAL IV SCH (12:40)
[2023-06-26] MEDS: FUROSEMIDE 40MG/4ML VIAL IVP SCH ×2 (12:40→17:02)
[2023-06-26] MEDS: ASPIRIN 81MG EC TABLET PO SCH (12:41)
[2023-06-26] MEDS: SERTRALINE HCL 25MG TABLET PO SCH (12:41)
[2023-06-26] MEDS: ZINC SULFATE 220 MG ( 50 ) CAPSULE PO SCH (12:41)
[2023-06-26] MEDS: GUAIFENESIN 600MG ER TABLET PO SCH ×2 (12:41→22:21)
[2023-06-26] MEDS: CEFEPIME 2,000 MG in DEXT 5% WATER 100 ML IV SCH (14:44)
[2023-06-26] MEDS ORDERED: OXYMETAZOLINE HCL NASAL SPRAY 15ML BOTHNSTRLS PRN (18:00)
[2023-06-26] MEDS ORDERED: DEXTROSE 50% WATER 50ML SYRINGE IV PRN (19:30)
[2023-06-26] MEDS: BLOOD SUGAR DIAGNOSTIC STRIP TEST SCH (21:00)
[2023-06-26 21:41] LABS: ANISOCYTOSIS 3+; HYPOCHROMASIA 1+; MICROCYTOSIS 1+; PLATELET ESTIMATE NORMAL
[2023-06-26] MEDS: ATORVASTATIN CALCIUM 10MG TABLET PO SCH (22:22)
[2023-06-27] VITALS (10 sets, daily range): BP systolic 92–123; BP diastolic 49–61; PULSE 79–141; RESP 18–20; TEMP 96.4–98.3; O2SAT 95–96
[2023-06-27] MEDS: IPRATROPIUM/ALBUTEROL 0.5-3(2.5)MG/3ML NEB HHN SCH ×4 (01:39→21:45)
[2023-06-27] MEDS: CEFEPIME 2,000 MG in DEXT 5% WATER 100 ML IV SCH ×2 (03:44→16:16)
[2023-06-27] MEDS: BLOOD SUGAR DIAGNOSTIC STRIP TEST SCH ×4 (06:40→21:20)
[2023-06-27] MEDS: ZINC SULFATE 220 MG ( 50 ) CAPSULE PO SCH (08:57)
[2023-06-27] MEDS: SERTRALINE HCL 25MG TABLET PO SCH (08:57)
[2023-06-27] MEDS: ASPIRIN 81MG EC TABLET PO SCH (08:57)
[2023-06-27] MEDS: FUROSEMIDE 40MG/4ML VIAL IVP SCH ×2 (08:57→17:42)
[2023-06-27] MEDS: ASCORBIC ACID 500 MG TABLET PO SCH ×2 (08:57→21:14)
[2023-06-27] MEDS: PANTOPRAZOLE SODIUM 40 MG/VIAL IV SCH (08:57)
[2023-06-27] MEDS: GUAIFENESIN 600MG ER TABLET PO SCH ×2 (08:57→21:09)
[2023-06-27] MEDS: METOPROLOL TARTRATE 50MG TABLET PO SCH ×2 (09:00→17:00)
[2023-06-27] MEDS ORDERED: IRON SUCROSE COMPLEX 100 MG/5 ML ML IV NR (11:00)
[2023-06-27] MEDS: ACETAMINOPHEN 325MG TABLET PO PRN (12:26)
[2023-06-27 12:45] LABS: HEMATOCRIT 25.3 % (36.0-48.0); HEMOGLOBIN 7.9 g/dL (12.0-16.0); MEAN CORPUSCULAR HEMOGLOBIN 25.5 pg (28.0-32.0); MEAN CORPUSCULAR HGB CONC 31.2 g/dL (31.0-37.0); PLATELET 210 x1000/uL (130-400); RED BLOOD CELL COUNT 3.09 mill/uL (4.2-5.4); RED CELL DISTRIBUTION WIDTH 23.7 % (11.6-14.6); WHITE BLOOD COUNT 12.6 x1000/uL (4.5-11.0)
[2023-06-27 15:04] LABS: CHLORIDE 99 mEq/L (98-107); INDEX HEMOLYSI 1 (1-3); INDEX ICTERIC 1 (1-4); INDEX LIPEMIC 1 (1-3); POTASSIUM 4.1 mEq/L (3.5-5.1); SODIUM 141 mEq/L (136-145)
[2023-06-27 15:11] LABS: ALANINE AMINOTRANSFERASE 18 IU/L (13-61); ALBUMIN 2.1 g/dL (3.4-5.0); ASPARTATE AMINOTRANSFERASE 17 IU/L (15-37); CALCIUM 8.1 mg/dL (8.5-10.1); CARBON DIOXIDE 38 mEq/L (21-32); GLUCOSE 97 mg/dL (70-105); PROTEIN TOTAL 5.3 g/dL (6.0-8.3); UREA NITROGEN BLOOD 50 mg/dL (7-21)
[2023-06-27 18:25] LABS: BG BASE EXCESS 13.4 mmol/L (-2.0-2.0); BG CARBOXYHEMOGLOBIN 1.6 % (0.5-1.5); BG FRACTION INSPIRED OXYGEN 28; BG HCO3 ACT 37.9 mmol/L (22.0-26.0); BG METHEMOGLOBIN 0.2 % (0.0-1.5); BG OXYGEN SATURATION 93.9 % (92.0-98.5); BG OXYHEMOGLOBIN 92.2 % (94.0-97.0); BG PCO2 49.2 mmHg (35.0-45.0); BG PH 7.505 (7.350-7.450); BG PO2 67.5 mmHg (75.0-100.0); BG SAMPLE SITE RIGHT RADIAL; BG TOTAL HEMOGLOBIN 8.7 g/dL (12.0-18.0); BG VENT MODE COOL AEROSOL
[2023-06-27] MEDS: METRONIDAZOLE 500MG TABLET PO SCH (21:10)
[2023-06-27] MEDS: ATORVASTATIN CALCIUM 10MG TABLET PO SCH (21:10)
[2023-06-28] VITALS (9 sets, daily range): BP systolic 103–123; BP diastolic 51–60; PULSE 94–122; RESP 18–20; TEMP 95.7–97.7; O2SAT 94
[2023-06-28] MEDS ORDERED: MELATONIN 3MG TABLET PO PRN (01:15)
[2023-06-28] MEDS: IPRATROPIUM/ALBUTEROL 0.5-3(2.5)MG/3ML NEB HHN SCH ×3 (01:39→14:49)
[2023-06-28] MEDS: CEFEPIME 2,000 MG in DEXT 5% WATER 100 ML IV SCH ×2 (02:50→15:00)
[2023-06-28] MEDS: BLOOD SUGAR DIAGNOSTIC STRIP TEST SCH ×3 (06:45→16:40)
[2023-06-28] MEDS: ZINC SULFATE 220 MG ( 50 ) CAPSULE PO SCH (08:32)
[2023-06-28] MEDS: ASCORBIC ACID 500 MG TABLET PO SCH (08:32)
[2023-06-28] MEDS: GUAIFENESIN 600MG ER TABLET PO SCH (08:32)
[2023-06-28] MEDS: SERTRALINE HCL 25MG TABLET PO SCH (08:32)
[2023-06-28] MEDS: ASPIRIN 81MG EC TABLET PO SCH (08:32)
[2023-06-28] MEDS: FUROSEMIDE 40MG/4ML VIAL IVP SCH (08:32)
[2023-06-28] MEDS: METOPROLOL TARTRATE 50MG TABLET PO SCH (08:36)
[2023-06-28] MEDS: METRONIDAZOLE 500MG TABLET PO SCH (08:36)
[2023-06-28 11:10] LABS: HEMATOCRIT 24.8 % (36.0-48.0); HEMOGLOBIN 7.7 g/dL (12.0-16.0); MEAN CORPUSCULAR HEMOGLOBIN 25.8 pg (28.0-32.0); MEAN CORPUSCULAR VOLUME 83.2 fL (81.0-99.0); PLATELET 214 x1000/uL (130-400); RED BLOOD CELL COUNT 2.99 mill/uL (4.2-5.4); RED CELL DISTRIBUTION WIDTH 23.9 % (11.6-14.6); WHITE BLOOD COUNT 11.8 x1000/uL (4.5-11.0)
[2023-06-28 11:38] LABS: CALCIUM 7.7 mg/dL (8.5-10.1); POTASSIUM 3.9 mEq/L (3.5-5.1)
[2023-06-28 11:42] LABS: CREATININE 1.1 mg/dL (0.6-1.3); PHOSPHORUS 3.3 mg/dL (2.5-4.9)
[2023-06-28] MEDS: PANTOPRAZOLE SODIUM 40 MG/VIAL IV SCH (12:54)
[2023-06-28] MEDS: ONDANSETRON HCL 4MG/2ML INJ IV PRN (12:54)
[2023-06-28] MEDS ORDERED: MAGNESIUM 2 G PREMIX 50 ML IV NR (13:30)
== END 2023-06-28 16:40 | DRG 871 ==
LOC: ER 01:56 → 5EST 04:09 → 7WST 18:32 → 7EST 06-23 22:54
PROVIDERS: ADMIT Internal Medicine; ATTEND Internal Medicine
PROC: 5A2204Z Restoration of Cardiac Rhythm, Single (ICD-10-PCS; principal; 2023-06-20)
PROC: 30233N1 Transfusion of Nonautologous Red Blood Cells into Peripheral Vein, Percutaneous Approach (ICD-10-PCS; 2023-06-25)
DX: A41.51 Sepsis due to Escherichia coli [E. coli] (principal); E43 Unspecified severe protein-calorie malnutrition; I50.33 Acute on chronic diastolic (congestive) heart failure; J96.01 Acute respiratory failure with hypoxia; E66.2 Morbid (severe) obesity with alveolar hypoventilation; N39.0 Urinary tract infection, site not specified; E87.29 Other acidosis; I13.0 Hypertensive heart and chronic kidney disease with heart failure and stage 1 through stage 4 chronic kidney disease, or unspecified chronic kidney disease; J44.1 Chronic obstructive pulmonary disease with (acute) exacerbation; L03.115 Cellulitis of right lower limb; N18.30 Chronic kidney disease, stage 3 unspecified; E80.4 Gilbert syndrome; I07.1 Rheumatic tricuspid insufficiency; I27.20 Pulmonary hypertension, unspecified; D63.1 Anemia in chronic kidney disease; I48.0 Paroxysmal atrial fibrillation; B96.89 Other specified bacterial agents as the cause of diseases classified elsewhere; B95.7 Other staphylococcus as the cause of diseases classified elsewhere; E78.00 Pure hypercholesterolemia, unspecified; K52.89 Other specified noninfective gastroenteritis and colitis; K56.41 Fecal impaction; F32.A Depression, unspecified; E80.6 Other disorders of bilirubin metabolism; Z20.822 Contact with and (suspected) exposure to COVID-19; K21.9 Gastro-esophageal reflux disease without esophagitis; R26.9 Unspecified abnormalities of gait and mobility; R53.81 Other malaise; R04.0 Epistaxis; R29.6 Repeated falls; Z99.81 Dependence on supplemental oxygen; Z88.8 Allergy status to other drugs, medicaments and biological substances; Z79.899 Other long term (current) drug therapy; Z68.29 Body mass index [BMI] 29.0-29.9, adult; Z85.528 Personal history of other malignant neoplasm of kidney; Z87.442 Personal history of urinary calculi; Z87.891 Personal history of nicotine dependence; Z90.5 Acquired absence of kidney; Z82.49 Family history of ischemic heart disease and other diseases of the circulatory system
CPT/HCPCS: 36415; 36600; 71045; 74176; 80048; 80053; 80162; 80202; 80305; 81003; 82375; 82550; 82553; 82607; 82746; 82805; 82962; 83036; 83540; 83550; 83605; 83735; 83880; 84100; 84145; 84439; 84443; 84484; 85014; 85018; 85025; 85027; 85379; 86803; 86850; 86900; 86920; 86945; 87077; 87186; 87340; 87426; 93005; 93306; 93970; 94640; 97110; 97162; 97166; 97530; 97535; 99291; C9113; C9803; J0295; J0456; J0692; J0696; J1650; J1885; J1940; J2185; J2250; J2405; J2597; J3370; J3475; J7030; J7050; J7060; J7608; J7626; P9016

== ENCOUNTER 2023-06-28 21:21 | Inpatient (IN) | payer MEDICARE ==
[~2023-06-28] VITALS: Ht 165.1 cm; Wt 108.6 kg
[~2023-06-28 21:21] MED LIST changes: +ALBU18HF2 PO; -APIX2.5T PO; +DIGO125T PO; -DIGO125T80 PO; -IPRATROPIUM BROMIDE; +LIDO700A30 TP; +LOSA50TA41 PO; -METO-539 PO; +METO25TA6 PO; +MONT-39 PO; +P20 PO; +SERT-422 PO; -SERT20OR PO; -SERT20OR6 PO
[2023-06-28 22:32] LABS: HEMOGLOBIN. 7.7 g/dL (12.0-16.0); MEAN CORPUSCULAR HEMOGLOBIN 25.6 pg (28.0-32.0); MEAN CORPUSCULAR HGB CONC 30.7 g/dL (31.0-37.0); MEAN CORPUSCULAR VOLUME 83.6 fL (81.0-99.0); MEAN PLATELET VOLUME 8.2 fl (7.4-10.4); PLATELET 243 x1000/uL (130-400); RED BLOOD CELL COUNT 2.99 mill/uL (4.2-5.4)
[2023-06-28 22:35] LABS: DIFFERENTIAL COMMENT 1
[2023-06-28 22:38] LABS: CHLORIDE 100 mEq/L (98-107); INDEX HEMOLYSI 1 (1-3); INDEX ICTERIC 1 (1-4); INDEX LIPEMIC 1 (1-3); POTASSIUM 3.7 mEq/L (3.5-5.1); SODIUM 139 mEq/L (136-145)
[2023-06-28 22:41] LABS: CALCIUM 7.7 mg/dL (8.5-10.1); CARBON DIOXIDE 38 mEq/L (21-32); GLUCOSE 99 mg/dL (70-105); UREA NITROGEN BLOOD 45 mg/dL (7-21)
[2023-06-28 22:44] LABS: INR 1.1; PROTHROMBIN TIME 11.8 sec (9.6-11.0)
[2023-06-28 22:48] LABS: CREATININE 1.3 mg/dL (0.6-1.3); PROTEIN TOTAL 5.3 g/dL (6.0-8.3)
[2023-06-28 22:49] LABS: ALANINE AMINOTRANSFERASE 21 IU/L (13-61); ASPARTATE AMINOTRANSFERASE 23 IU/L (15-37); BILIRUBIN TOTAL 0.8 mg/dL (0.1-1.0); NT PRO B-TYPE NATRIURETIC PEP 3280 pg/mL (5-125); TROPONIN I HIGH SENSITIVITY 11 ng/L (<54)
[2023-06-28 22:55] LABS: CLARITY URINE SL HAZY (CLEAR); COLOR URINE YELLOW (YELLOW); SPECIFIC GRAVITY URINE 1.015 (1.005-1.030)
[2023-06-28 22:56] LABS: GLUCOSE URINE NEGATIVE (NEGATIVE); KETONES URINE TRACE (NEGATIVE); OCCULT BLOOD URINE 3+ (NEGATIVE); PROTEIN URINE 1+ (NEGATIVE)
[2023-06-28 22:57] LABS: LEUKOCYTE ESTERASE URINE 2+ (NEGATIVE); NITRITE URINE NEGATIVE (NEGATIVE); UROBILINOGEN URINE 0.2 E.U./dL (0.2-1.0)
[2023-06-28] MEDS ORDERED: IPRATROPIUM/ALBUTEROL 0.5-3(2.5)MG/3ML NEB HHN ONE (23:00)
[2023-06-28] MEDS ORDERED: METHYLPREDNISOLONE SOD SUCC 125MG/2ML (ACT-O-VIAL) IV ONE (23:00)
[2023-06-28 23:02] LABS: SQUAMOUS EPITHELIAL CELL URINE 1+ /lpf (RARE/1+)
[2023-06-28 23:03] LABS: BACTERIA URINE 1+; RBC URINE 15-25 /hpf (0-2); WBC URINE 25-50 /hpf (0-2); YEAST URINE 2+
[2023-06-28] MEDS ORDERED: METHYLPREDNISOLONE SOD SUCC 125MG VIAL IV NR (23:15)
[2023-06-28 23:24] LABS: ANISOCYTOSIS 3+; PLATELET ESTIMATE NORMAL
[2023-06-28 23:49] VITALS: PULSE 115; RESP 17; O2SAT 99
[2023-06-29] MEDS ORDERED: CEFEPIME 1,000 MG in DEXTROSE 5% WATER 50 ML IV STA (00:19)
[2023-06-29 00:56] LABS: TROPONIN I HIGH SENSITIVITY 19 ng/L (<54)
[2023-06-29] MEDS ORDERED: OXYMETAZOLINE HCL NASAL SPRAY 15ML BOTHNSTRLS PRN (10:45)
[2023-06-29] MEDS ORDERED: IPRATROPIUM/ALBUTEROL 0.5-3(2.5)MG/3ML NEB HHN PRN ×2 (10:45→12:00)
[2023-06-29] MEDS ORDERED: ACETAMINOPHEN 325MG TABLET PO PRN (12:00)
[2023-06-29] MEDS ORDERED: LORAZEPAM 0.5MG TABLET PO PRN (12:00)
[2023-06-29] MEDS ORDERED: ONDANSETRON HCL 4MG/2ML INJ IV PRN (12:00)
[2023-06-29] MEDS ORDERED: HYDROCODONE/ACETAMINOPHEN 5/325MG TABLET PO PRN (12:00)
[2023-06-29] MEDS ORDERED: CLONIDINE 0.1MG TABLET PO PRN (12:00)
[2023-06-29] MEDS ORDERED: DOCUSATE SODIUM 100MG CAPSULE PO PRN (12:00)
[2023-06-29] MEDS ORDERED: CEFAZOLIN 500 MG in DEXTROSE 5% WATER 50 ML IV SCH (12:00)
[2023-06-29] MEDS: METOPROLOL TARTRATE 50MG TABLET PO SCH (13:59)
[2023-06-29] MEDS: FLUCONAZOLE 100MG TABLET PO SCH (13:59)
[2023-06-29] MEDS: ACETAMINOPHEN 325MG TABLET PO PRN ×2 (14:07→22:51)
[2023-06-29] MEDS: CEFAZOLIN 1000MG PREMIX 50 ML IV SCH ×2 (14:54→21:06)
[2023-06-29 15:35] VITALS: BP 116/71; PULSE 112; RESP 18; TEMP 97.5
[2023-06-29 16:11] VITALS: BP 134/75; PULSE 96; RESP 20; TEMP 97.5
[2023-06-29] MEDS: ENOXAPARIN 40MG/0.4ML SYR SUBCUT SCH (18:40)
[2023-06-29 20:00] VITALS: BP 120/64; PULSE 110; RESP 18; TEMP 97.4
[2023-06-29] MEDS: ZOLPIDEM TARTRATE 5MG TABLET PO PRN (22:51)
[2023-06-30] VITALS (7 sets, daily range): BP systolic 108–138; BP diastolic 46–81; PULSE 81–103; RESP 18–22; TEMP 96.3–98.8; O2SAT 99
[2023-06-30] MEDS: CEFAZOLIN 1000MG PREMIX 50 ML IV SCH ×3 (04:41→21:18)
[2023-06-30] MEDS: ENOXAPARIN 40MG/0.4ML SYR SUBCUT SCH ×2 (05:08→17:33)
[2023-06-30 07:05] LABS: HEMATOCRIT. 25.4 % (36.0-48.0); HEMOGLOBIN. 7.6 g/dL (12.0-16.0); MEAN CORPUSCULAR HEMOGLOBIN 25.8 pg (28.0-32.0); MEAN CORPUSCULAR HGB CONC 30.1 g/dL (31.0-37.0); MEAN CORPUSCULAR VOLUME 85.7 fL (81.0-99.0); MEAN PLATELET VOLUME 8.5 fl (7.4-10.4); PLATELET 279 x1000/uL (130-400); RED BLOOD CELL COUNT 2.96 mill/uL (4.2-5.4); RED CELL DISTRIBUTION WIDTH 23.9 % (11.6-14.6); WHITE BLOOD COUNT 14.4 x1000/uL (4.5-11.0)
[2023-06-30 07:42] LABS: DIFFERENTIAL COMMENT 1
[2023-06-30] MEDS: METOPROLOL TARTRATE 50MG TABLET PO SCH ×2 (09:00→21:17)
[2023-06-30 09:06] LABS: CALCIUM 8.2 mg/dL (8.5-10.1)
[2023-06-30 09:11] LABS: CREATININE 1.2 mg/dL (0.6-1.3)
[2023-06-30] MEDS: FLUCONAZOLE 100MG TABLET PO SCH (09:16)
[2023-06-30] MEDS: IPRATROPIUM BROMIDE (0.02%) 0.5MG/2.5ML NEB HHN SCH ×3 (11:59→17:41)
[2023-06-30] MEDS: BUDESONIDE 0.5MG/2ML NEB HHN SCH (12:00)
[2023-06-30] MEDS ORDERED: INFLUENZA VACCINE 05/PF 0.5 ML SYRINGE IM ONE (14:45)
[2023-06-30] MEDS: SERTRALINE HCL 50MG TABLET PO SCH (15:36)
[2023-06-30] MEDS: ACETAMINOPHEN 325MG TABLET PO PRN ×2 (15:40→22:44)
[2023-06-30 22:00] LABS: ANISOCYTOSIS 2+; PLATELET ESTIMATE NORMAL
[2023-06-30] MEDS: ZOLPIDEM TARTRATE 5MG TABLET PO PRN (22:43)
[2023-07-01] VITALS (9 sets, daily range): BP systolic 100–121; BP diastolic 56–77; PULSE 66–104; RESP 18–22; TEMP 97.1–97.6
[2023-07-01] MEDS: CEFAZOLIN 1000MG PREMIX 50 ML IV SCH ×3 (05:27→21:24)
[2023-07-01] MEDS: ENOXAPARIN 40MG/0.4ML SYR SUBCUT SCH ×2 (05:34→17:27)
[2023-07-01 06:46] LABS: HEMATOCRIT. 25.4 % (36.0-48.0); HEMOGLOBIN. 7.8 g/dL (12.0-16.0); MEAN CORPUSCULAR HEMOGLOBIN 26.9 pg (28.0-32.0); MEAN CORPUSCULAR VOLUME 86.9 fL (81.0-99.0); MEAN PLATELET VOLUME 8.1 fl (7.4-10.4); PLATELET 291 x1000/uL (130-400); RED BLOOD CELL COUNT 2.92 mill/uL (4.2-5.4); WHITE BLOOD COUNT 11.4 x1000/uL (4.5-11.0)
[2023-07-01 07:08] LABS: CHLORIDE 99 mEq/L (98-107); INDEX HEMOLYSI 1 (1-3); INDEX ICTERIC 1 (1-4); INDEX LIPEMIC 1 (1-3); POTASSIUM 4.4 mEq/L (3.5-5.1); SODIUM 139 mEq/L (136-145)
[2023-07-01 07:10] LABS: DIFFERENTIAL COMMENT 1
[2023-07-01 07:17] LABS: CALCIUM 8.2 mg/dL (8.5-10.1); CARBON DIOXIDE 40 mEq/L (21-32); GLUCOSE 82 mg/dL (70-105); UREA NITROGEN BLOOD 34 mg/dL (7-21)
[2023-07-01] MEDS: METOPROLOL TARTRATE 50MG TABLET PO SCH ×2 (08:50→21:21)
[2023-07-01] MEDS: FLUCONAZOLE 100MG TABLET PO SCH (08:57)
[2023-07-01] MEDS: SERTRALINE HCL 50MG TABLET PO SCH (08:58)
[2023-07-01] MEDS: BUDESONIDE 0.5MG/2ML NEB HHN SCH ×2 (10:07→21:24)
[2023-07-01] MEDS: IPRATROPIUM BROMIDE (0.02%) 0.5MG/2.5ML NEB HHN SCH ×3 (10:07→21:23)
[2023-07-01 16:13] LABS: ANISOCYTOSIS 2+; PLATELET ESTIMATE NORMAL
[2023-07-01] MEDS: ACETAMINOPHEN 325MG TABLET PO PRN (21:22)
[2023-07-01] MEDS: ZOLPIDEM TARTRATE 5MG TABLET PO PRN (21:22)
[2023-07-02] VITALS (10 sets, daily range): BP systolic 103–123; BP diastolic 57–74; PULSE 71–126; RESP 16–21; TEMP 97–97.8
[2023-07-02] MEDS: IPRATROPIUM BROMIDE (0.02%) 0.5MG/2.5ML NEB HHN SCH ×4 (01:50→21:50)
[2023-07-02] MEDS: ENOXAPARIN 40MG/0.4ML SYR SUBCUT SCH ×2 (05:12→17:56)
[2023-07-02] MEDS: CEFAZOLIN 1000MG PREMIX 50 ML IV SCH ×3 (05:13→21:45)
[2023-07-02 06:46] LABS: HEMATOCRIT. 27.3 % (36.0-48.0); HEMOGLOBIN. 8.4 g/dL (12.0-16.0); MEAN CORPUSCULAR HEMOGLOBIN 26.9 pg (28.0-32.0); MEAN CORPUSCULAR HGB CONC 30.6 g/dL (31.0-37.0); MEAN CORPUSCULAR VOLUME 87.9 fL (81.0-99.0); MEAN PLATELET VOLUME 8.3 fl (7.4-10.4); PLATELET 290 x1000/uL (130-400); RED BLOOD CELL COUNT 3.11 mill/uL (4.2-5.4); RED CELL DISTRIBUTION WIDTH 26.2 % (11.6-14.6); WHITE BLOOD COUNT 11.5 x1000/uL (4.5-11.0)
[2023-07-02 07:04] LABS: DIFFERENTIAL COMMENT 1
[2023-07-02 07:59] LABS: CALCIUM 8.3 mg/dL (8.5-10.1); POTASSIUM 4.9 mEq/L (3.5-5.1)
[2023-07-02 08:12] LABS: CREATININE 1.1 mg/dL (0.6-1.3)
[2023-07-02] MEDS: BUDESONIDE 0.5MG/2ML NEB HHN SCH ×2 (09:00→21:50)
[2023-07-02] MEDS: SERTRALINE HCL 50MG TABLET PO SCH (09:09)
[2023-07-02] MEDS: METOPROLOL TARTRATE 50MG TABLET PO SCH ×2 (09:09→21:49)
[2023-07-02] MEDS: FLUCONAZOLE 100MG TABLET PO SCH (09:09)
[2023-07-02] MEDS ORDERED: IOHEXOL-350 100 ML BOTTLE ONE (10:36)
[2023-07-02] MEDS ORDERED: METO-539 PO (12:19)
[2023-07-02] MEDS ORDERED: FLUC100T PO (12:19)
[2023-07-02 14:16] LABS: ANISOCYTOSIS 2+; PLATELET ESTIMATE NORMAL
[2023-07-02] MEDS: ACETAMINOPHEN 325MG TABLET PO PRN (23:40)
[2023-07-02] MEDS: ZOLPIDEM TARTRATE 5MG TABLET PO PRN (23:40)
[2023-07-03] VITALS (10 sets, daily range): BP systolic 100–130; BP diastolic 52–74; PULSE 71–105; RESP 16–20; TEMP 96.8–98.9
[2023-07-03] MEDS: IPRATROPIUM BROMIDE (0.02%) 0.5MG/2.5ML NEB HHN SCH ×4 (01:02→20:19)
[2023-07-03] MEDS: CEFAZOLIN 1000MG PREMIX 50 ML IV SCH ×3 (06:08→21:45)
[2023-07-03] MEDS: ENOXAPARIN 30MG/0.3ML SYR SUBCUT SCH ×2 (06:08→17:20)
[2023-07-03] MEDS: BUDESONIDE 0.5MG/2ML NEB HHN SCH ×2 (08:59→20:19)
[2023-07-03] MEDS: ACETAMINOPHEN 325MG TABLET PO PRN ×2 (09:08→22:24)
[2023-07-03] MEDS: METOPROLOL TARTRATE 50MG TABLET PO SCH ×2 (09:08→21:00)
[2023-07-03] MEDS: FLUCONAZOLE 100MG TABLET PO SCH (09:08)
[2023-07-03] MEDS: SERTRALINE HCL 50MG TABLET PO SCH (09:08)
[2023-07-03] MEDS: ZOLPIDEM TARTRATE 5MG TABLET PO PRN (22:24)
[2023-07-04] VITALS (9 sets, daily range): BP systolic 100–125; BP diastolic 50–75; PULSE 72–113; RESP 18–20; TEMP 98.3–99.2
[2023-07-04] MEDS: IPRATROPIUM BROMIDE (0.02%) 0.5MG/2.5ML NEB HHN SCH ×3 (02:04→21:03)
[2023-07-04] MEDS: CEFAZOLIN 1000MG PREMIX 50 ML IV SCH ×2 (06:14→12:29)
[2023-07-04] MEDS: ENOXAPARIN 30MG/0.3ML SYR SUBCUT SCH ×2 (06:21→18:18)
[2023-07-04] MEDS: BUDESONIDE 0.5MG/2ML NEB HHN SCH ×2 (08:22→21:03)
[2023-07-04] MEDS: FLUCONAZOLE 100MG TABLET PO SCH (09:43)
[2023-07-04] MEDS: METOPROLOL TARTRATE 50MG TABLET PO SCH ×2 (09:44→21:21)
[2023-07-04] MEDS: SERTRALINE HCL 50MG TABLET PO SCH (09:44)
[2023-07-04] MEDS: ACETAMINOPHEN 325MG TABLET PO PRN (09:45)
[2023-07-04] MEDS: ZOLPIDEM TARTRATE 5MG TABLET PO PRN (21:21)
[2023-07-05] VITALS (10 sets, daily range): BP systolic 107–134; BP diastolic 55–96; PULSE 63–115; RESP 16–24; TEMP 97–97.9; O2SAT 94–99
[2023-07-05] MEDS: IPRATROPIUM BROMIDE (0.02%) 0.5MG/2.5ML NEB HHN SCH ×4 (02:35→20:21)
[2023-07-05] MEDS ORDERED: GUAIFENESIN 200MG/10ML SUGAR FREE UDC PO PRN (04:15)
[2023-07-05] MEDS: ENOXAPARIN 30MG/0.3ML SYR SUBCUT SCH ×2 (05:17→18:38)
[2023-07-05] MEDS: BUDESONIDE 0.5MG/2ML NEB HHN SCH ×2 (08:30→20:18)
[2023-07-05] MEDS: METOPROLOL TARTRATE 50MG TABLET PO SCH ×2 (09:00→20:23)
[2023-07-05] MEDS: SERTRALINE HCL 50MG TABLET PO SCH (09:15)
[2023-07-05] MEDS: ACETAMINOPHEN 325MG TABLET PO PRN (09:21)
[2023-07-06] VITALS (9 sets, daily range): BP systolic 103–137; BP diastolic 55–82; PULSE 64–105; RESP 15–20; TEMP 97.1–98.8; O2SAT 94–99
[2023-07-06] MEDS: IPRATROPIUM BROMIDE (0.02%) 0.5MG/2.5ML NEB HHN SCH ×4 (01:57→21:38)
[2023-07-06] MEDS: ENOXAPARIN 30MG/0.3ML SYR SUBCUT SCH ×2 (06:00→17:53)
[2023-07-06] MEDS: METOPROLOL TARTRATE 50MG TABLET PO SCH ×2 (08:54→21:05)
[2023-07-06] MEDS: SERTRALINE HCL 50MG TABLET PO SCH (09:00)
[2023-07-06] MEDS: BUDESONIDE 0.5MG/2ML NEB HHN SCH ×2 (09:46→21:37)
[2023-07-06] MEDS: ACETAMINOPHEN 325MG TABLET PO PRN (11:19)
[2023-07-06] MEDS: ZOLPIDEM TARTRATE 5MG TABLET PO PRN (22:50)
[2023-07-07] VITALS (10 sets, daily range): BP systolic 109–131; BP diastolic 55–74; PULSE 89–102; RESP 17–20; TEMP 96.9–98.2; O2SAT 91–99
[2023-07-07] MEDS: IPRATROPIUM BROMIDE (0.02%) 0.5MG/2.5ML NEB HHN SCH ×4 (03:06→21:29)
[2023-07-07] MEDS: ENOXAPARIN 30MG/0.3ML SYR SUBCUT SCH ×2 (05:21→18:00)
[2023-07-07] MEDS: SERTRALINE HCL 50MG TABLET PO SCH (08:26)
[2023-07-07] MEDS: METOPROLOL TARTRATE 50MG TABLET PO SCH ×2 (08:26→21:53)
[2023-07-07] MEDS: BUDESONIDE 0.5MG/2ML NEB HHN SCH ×2 (08:48→21:30)
[2023-07-08] VITALS (10 sets, daily range): BP systolic 100–140; BP diastolic 52–63; PULSE 70–107; RESP 16–20; TEMP 95.2–98.2; O2SAT 98
[2023-07-08] MEDS: IPRATROPIUM BROMIDE (0.02%) 0.5MG/2.5ML NEB HHN SCH ×4 (01:41→22:14)
[2023-07-08] MEDS: ZOLPIDEM TARTRATE 5MG TABLET PO PRN ×2 (01:52→23:28)
[2023-07-08] MEDS: ENOXAPARIN 30MG/0.3ML SYR SUBCUT SCH ×2 (05:30→18:50)
[2023-07-08] MEDS: METOPROLOL TARTRATE 50MG TABLET PO SCH ×3 (09:00→21:00)
[2023-07-08] MEDS: SERTRALINE HCL 50MG TABLET PO SCH (09:17)
[2023-07-08] MEDS: ACETAMINOPHEN 325MG TABLET PO PRN (14:56)
[2023-07-09] VITALS (10 sets, daily range): BP systolic 99–152; BP diastolic 51–77; PULSE 68–111; RESP 16–20; TEMP 97.5–99.8; O2SAT 94–96
[2023-07-09] MEDS: IPRATROPIUM BROMIDE (0.02%) 0.5MG/2.5ML NEB HHN SCH ×4 (01:46→21:13)
[2023-07-09] MEDS: ENOXAPARIN 30MG/0.3ML SYR SUBCUT SCH ×2 (05:24→18:29)
[2023-07-09] MEDS: METOPROLOL TARTRATE 50MG TABLET PO SCH ×2 (09:39→21:54)
[2023-07-09] MEDS: SERTRALINE HCL 50MG TABLET PO SCH (09:39)
[2023-07-09] MEDS: ACETAMINOPHEN 325MG TABLET PO PRN (09:40)
[2023-07-09 15:24] LABS: BG BASE EXCESS 9.6 mmol/L (-2.0-2.0); BG CARBOXYHEMOGLOBIN 0.7 % (0.5-1.5); BG DEOXYHEMOGLOBIN 2.1 % (0.0-5.0); BG FRACTION INSPIRED OXYGEN 28; BG HCO3 ACT 35.7 mmol/L (22.0-26.0); BG METHEMOGLOBIN 0.3 % (0.0-1.5); BG OXYGEN SATURATION 97.9 % (92.0-98.5); BG OXYHEMOGLOBIN 96.9 % (94.0-97.0); BG PH 7.407 (7.350-7.450); BG SAMPLE SITE RIGHT RADIAL; BG TOTAL HEMOGLOBIN 9.5 g/dL (12.0-18.0); BG VENT MODE NASAL CANNULA
[2023-07-09] MEDS: ZOLPIDEM TARTRATE 5MG TABLET PO PRN (23:35)
[2023-07-10] VITALS: BP 120/61; PULSE 85; RESP 19; TEMP 98.6
[2023-07-10 04:00] VITALS: BP 147/57; PULSE 93; RESP 18; TEMP 97.5
[2023-07-10] MEDS: ENOXAPARIN 30MG/0.3ML SYR SUBCUT SCH ×2 (06:41→17:17)
[2023-07-10 07:16] LABS: HEMATOCRIT. 26.9 % (36.0-48.0); HEMOGLOBIN. 8.2 g/dL (12.0-16.0); MEAN CORPUSCULAR HEMOGLOBIN 26.2 pg (28.0-32.0); MEAN CORPUSCULAR HGB CONC 30.5 g/dL (31.0-37.0); MEAN CORPUSCULAR VOLUME 85.8 fL (81.0-99.0); MEAN PLATELET VOLUME 7.9 fl (7.4-10.4); PLATELET 201 x1000/uL (130-400); RED BLOOD CELL COUNT 3.13 mill/uL (4.2-5.4); RED CELL DISTRIBUTION WIDTH 24.9 % (11.6-14.6); WHITE BLOOD COUNT 6.4 x1000/uL (4.5-11.0)
[2023-07-10 07:35] LABS: DIFFERENTIAL COMMENT 1
[2023-07-10 08:00] VITALS: BP_SYST 125; BP_DIAS 53; BP_DIAS 66; PULSE 104; RESP 18; RESP 20; TEMP 97.1; TEMP 97.6
[2023-07-10] MEDS: SERTRALINE HCL 50MG TABLET PO SCH (08:46)
[2023-07-10] MEDS: METOPROLOL TARTRATE 50MG TABLET PO SCH ×2 (08:46→21:00)
[2023-07-10 12:00] VITALS: BP 128/67; PULSE 102; RESP 19; TEMP 98.2
[2023-07-10 15:32] LABS: CHLORIDE 105 mEq/L (98-107); INDEX HEMOLYSI 1 (1-3); INDEX ICTERIC 1 (1-4); INDEX LIPEMIC 1 (1-3); POTASSIUM 4.4 mEq/L (3.5-5.1); SODIUM 139 mEq/L (136-145)
[2023-07-10 15:43] LABS: CALCIUM 8.8 mg/dL (8.5-10.1); CARBON DIOXIDE 31 mEq/L (21-32); GLUCOSE 74 mg/dL (70-105); UREA NITROGEN BLOOD 23 mg/dL (7-21)
[2023-07-10 18:52] LABS: PLATELET ESTIMATE NORMAL
[2023-07-10 18:53] LABS: ANISOCYTOSIS 3+
[2023-07-10 20:00] VITALS: BP 112/58; PULSE 84; RESP 16; TEMP 98.4
[2023-07-10] MEDS: ZOLPIDEM TARTRATE 5MG TABLET PO PRN (23:11)
[2023-07-11] VITALS (7 sets, daily range): BP systolic 101–160; BP diastolic 47–81; PULSE 72–103; RESP 17–20; TEMP 97.5–98.3; O2SAT 95
[2023-07-11] MEDS: ENOXAPARIN 30MG/0.3ML SYR SUBCUT SCH ×2 (06:40→18:30)
[2023-07-11] MEDS: SERTRALINE HCL 50MG TABLET PO SCH (09:23)
[2023-07-11] MEDS: METOPROLOL TARTRATE 50MG TABLET PO SCH ×2 (09:23→21:00)
[2023-07-11] MEDS ORDERED: IPRATROPIUM/ALBUTEROL 0.5-3(2.5)MG/3ML NEB HHN PRN (11:45)
[2023-07-11] MEDS: IPRATROPIUM/ALBUTEROL 0.5-3(2.5)MG/3ML NEB HHN SCH (18:40)
[2023-07-12] VITALS (9 sets, daily range): BP systolic 108–129; BP diastolic 51–69; PULSE 92–118; RESP 16–20; TEMP 97.1–99; O2SAT 97–98
[2023-07-12] MEDS: ACETAMINOPHEN 325MG TABLET PO PRN (06:37)
[2023-07-12] MEDS: ENOXAPARIN 30MG/0.3ML SYR SUBCUT SCH ×2 (06:37→18:15)
[2023-07-12] MEDS: IPRATROPIUM/ALBUTEROL 0.5-3(2.5)MG/3ML NEB HHN SCH ×3 (08:44→21:05)
[2023-07-12] MEDS: METOPROLOL TARTRATE 50MG TABLET PO SCH ×2 (09:16→21:00)
[2023-07-12] MEDS: SERTRALINE HCL 50MG TABLET PO SCH (09:16)
[2023-07-13] VITALS (8 sets, daily range): BP systolic 99–143; BP diastolic 56–69; PULSE 68–102; RESP 16–20; TEMP 95.2–98.4
[2023-07-13] MEDS: ZOLPIDEM TARTRATE 5MG TABLET PO PRN ×2 (00:13→23:01)
[2023-07-13] MEDS: ENOXAPARIN 30MG/0.3ML SYR SUBCUT SCH ×2 (06:34→17:27)
[2023-07-13] MEDS: IPRATROPIUM/ALBUTEROL 0.5-3(2.5)MG/3ML NEB HHN SCH ×2 (07:46→14:49)
[2023-07-13] MEDS: METOPROLOL TARTRATE 50MG TABLET PO SCH ×2 (09:30→21:15)
[2023-07-13] MEDS: SERTRALINE HCL 50MG TABLET PO SCH (09:30)
[2023-07-14] VITALS (7 sets, daily range): BP systolic 90–139; BP diastolic 44–67; PULSE 80–112; RESP 16–22; TEMP 96.9–98.2; O2SAT 97
[2023-07-14] MEDS: ENOXAPARIN 30MG/0.3ML SYR SUBCUT SCH ×2 (06:20→17:47)
[2023-07-14] MEDS: IPRATROPIUM/ALBUTEROL 0.5-3(2.5)MG/3ML NEB HHN SCH ×3 (09:00→14:57)
[2023-07-14] MEDS: SERTRALINE HCL 50MG TABLET PO SCH (09:42)
[2023-07-14] MEDS: ACETAMINOPHEN 325MG TABLET PO PRN (09:42)
[2023-07-14] MEDS: METOPROLOL TARTRATE 50MG TABLET PO SCH ×2 (09:42→20:51)
[2023-07-15] VITALS (8 sets, daily range): BP systolic 90–137; BP diastolic 49–73; PULSE 82–102; RESP 16–20; TEMP 96.6–98.1; O2SAT 99
[2023-07-15] MEDS: ZOLPIDEM TARTRATE 5MG TABLET PO PRN ×2 (00:29→23:55)
[2023-07-15] MEDS: ENOXAPARIN 30MG/0.3ML SYR SUBCUT SCH ×2 (06:00→19:50)
[2023-07-15] MEDS: SERTRALINE HCL 50MG TABLET PO SCH (08:39)
[2023-07-15] MEDS: METOPROLOL TARTRATE 50MG TABLET PO SCH ×2 (08:40→21:00)
[2023-07-15] MEDS: ACETAMINOPHEN 325MG TABLET PO PRN (08:44)
[2023-07-15] MEDS: IPRATROPIUM/ALBUTEROL 0.5-3(2.5)MG/3ML NEB HHN SCH ×2 (10:33→15:29)
[2023-07-16] VITALS (8 sets, daily range): BP systolic 86–141; BP diastolic 50–69; PULSE 78–122; RESP 18–20; TEMP 97–98.7; O2SAT 98
[2023-07-16] MEDS: ENOXAPARIN 30MG/0.3ML SYR SUBCUT SCH ×2 (05:28→18:00)
[2023-07-16] MEDS: IPRATROPIUM/ALBUTEROL 0.5-3(2.5)MG/3ML NEB HHN SCH ×2 (07:57→14:18)
[2023-07-16] MEDS: METOPROLOL TARTRATE 50MG TABLET PO SCH ×2 (09:12→20:39)
[2023-07-16] MEDS: SERTRALINE HCL 50MG TABLET PO SCH (09:12)
[2023-07-16] MEDS: ACETAMINOPHEN 325MG TABLET PO PRN (09:13)
[2023-07-16] MEDS: ZOLPIDEM TARTRATE 5MG TABLET PO PRN (21:27)
[2023-07-16 21:37] LABS: CLARITY URINE TURBID (CLEAR); COLOR URINE YELLOW (YELLOW); GLUCOSE URINE NEGATIVE (NEGATIVE); KETONES URINE NEGATIVE (NEGATIVE); LEUKOCYTE ESTERASE URINE 3+ (NEGATIVE); NITRITE URINE POSITIVE (NEGATIVE); OCCULT BLOOD URINE 2+ (NEGATIVE); PROTEIN URINE 2+ (NEGATIVE); SPECIFIC GRAVITY URINE 1.015 (1.005-1.030)
[2023-07-16 22:11] LABS: BACTERIA URINE 4+; RBC URINE 15-25 /hpf (0-2); SQUAMOUS EPITHELIAL CELL URINE 1+ /lpf (RARE/1+); WBC URINE TNTC /hpf (0-2)
== END 2023-07-16 21:30 | DRG 308 ==
LOC: ER 21:21 → EDBEDREQ 06-29 00:52 → 7WST 06-29 01:08 → EDBEDREQ 06-29 01:09 → 7WST 06-29 13:50 → 6EST 07-07 09:34 → 7WST 07-07 09:54 → 6EST 07-07 10:50
PROVIDERS: ADMIT Internal Medicine; ATTEND Internal Medicine
DX: I48.0 Paroxysmal atrial fibrillation (principal); A41.9 Sepsis, unspecified organism; J96.21 Acute and chronic respiratory failure with hypoxia; E43 Unspecified severe protein-calorie malnutrition; I50.33 Acute on chronic diastolic (congestive) heart failure; I13.0 Hypertensive heart and chronic kidney disease with heart failure and stage 1 through stage 4 chronic kidney disease, or unspecified chronic kidney disease; J44.1 Chronic obstructive pulmonary disease with (acute) exacerbation; B37.49 Other urogenital candidiasis; I42.0 Dilated cardiomyopathy; I42.2 Other hypertrophic cardiomyopathy; I27.21 Secondary pulmonary arterial hypertension; E66.9 Obesity, unspecified; I07.1 Rheumatic tricuspid insufficiency; N18.30 Chronic kidney disease, stage 3 unspecified; R04.0 Epistaxis; E78.00 Pure hypercholesterolemia, unspecified; K21.9 Gastro-esophageal reflux disease without esophagitis; R26.9 Unspecified abnormalities of gait and mobility; Z68.39 Body mass index [BMI] 39.0-39.9, adult; Z85.528 Personal history of other malignant neoplasm of kidney; Z87.442 Personal history of urinary calculi; Z90.5 Acquired absence of kidney; Z99.81 Dependence on supplemental oxygen; Z82.49 Family history of ischemic heart disease and other diseases of the circulatory system; Z87.891 Personal history of nicotine dependence
CPT/HCPCS: 36415; 36600; 71045; 71275; 80048; 80053; 81003; 82375; 82805; 83605; 83880; 84145; 84484; 85025; 87106; 87426; 93005; 94640; 97110; 97162; 97166; 97530; 97535; 99291; A6261; C9803; J0690; J0692; J1650; J2405; J2930; J7060; J7626; Q9967

== ENCOUNTER 2023-07-16 21:45 | Inpatient (IN) | payer MEDICARE ==
[~2023-07-16] VITALS: Ht 165.1 cm; Wt 108.6 kg
[~2023-07-16 21:45] MED LIST changes: -DIGO125T PO; +FLUC100T PO; -LOSA50TA41 PO; +METO-539 PO; -METO25TA6 PO; -P20 PO
[2023-07-16 22:00] VITALS: BP 112/62; PULSE 92; RESP 18; TEMP 98.2
[2023-07-16] MEDS ORDERED: ONDANSETRON HCL 4MG TABLET PO PRN (23:00)
[2023-07-16] MEDS ORDERED: ACETAMINOPHEN 325MG TABLET PO PRN (23:00)
[2023-07-16] MEDS ORDERED: IPRATROPIUM/ALBUTEROL 0.5-3(2.5)MG/3ML NEB HHN PRN (23:00)
[2023-07-16] MEDS ORDERED: DOCUSATE SODIUM 100MG CAPSULE PO PRN (23:15)
[2023-07-16] MEDS ORDERED: GUAIFENESIN 200MG/10ML SUGAR FREE UDC PO PRN (23:15)
[2023-07-16] MEDS ORDERED: CLONIDINE 0.1MG TABLET PO PRN (23:15)
[2023-07-17 02:18] VITALS: PULSE 103; RESP 20; O2SAT 97
[2023-07-17] MEDS: IPRATROPIUM/ALBUTEROL 0.5-3(2.5)MG/3ML NEB HHN SCH ×4 (02:18→21:05)
[2023-07-17] MEDS: ENOXAPARIN 30MG/0.3ML SYR SUBCUT SCH ×2 (06:00→18:00)
[2023-07-17 06:49] LABS: EOSINOPHILS % 1.9 % (0.0-5.0); HEMOGLOBIN. 8.2 g/dL (12.0-16.0); LYMPHOCYTES % 13.7 % (20.0-50.0); MEAN CORPUSCULAR HEMOGLOBIN 26.6 pg (28.0-32.0); MEAN CORPUSCULAR HGB CONC 30.5 g/dL (31.0-37.0); MEAN CORPUSCULAR VOLUME 87.1 fL (81.0-99.0); MEAN PLATELET VOLUME 8.7 fl (7.4-10.4); MONOCYTES % 9.8 % (2.0-8.0); NEUTROPHILS % 73.6 % (40.0-76.0); PLATELET 170 x1000/uL (130-400); RED CELL DISTRIBUTION WIDTH 22.9 % (11.6-14.6); WHITE BLOOD COUNT 6.1 x1000/uL (4.5-11.0)
[2023-07-17 06:52] LABS: DIFFERENTIAL COMMENT 1
[2023-07-17 06:54] LABS: ADD RBC MORPHOLOGY NO
[2023-07-17 07:03] LABS: CHLORIDE 105 mEq/L (98-107); INDEX HEMOLYSI 1 (1-3); INDEX ICTERIC 1 (1-4); INDEX LIPEMIC 1 (1-3); POTASSIUM 4.7 mEq/L (3.5-5.1); SODIUM 141 mEq/L (136-145)
[2023-07-17 07:13] LABS: ALANINE AMINOTRANSFERASE 8 IU/L (13-61); ALBUMIN 2.4 g/dL (3.4-5.0); ASPARTATE AMINOTRANSFERASE 14 IU/L (15-37); BILIRUBIN TOTAL 0.5 mg/dL (0.1-1.0); CARBON DIOXIDE 35 mEq/L (21-32); CREATININE 0.9 mg/dL (0.6-1.3); GLUCOSE 87 mg/dL (70-105); PREALBUMIN 13.2 mg/dL (20.0-40.0); PROTEIN TOTAL 5.6 g/dL (6.0-8.3); UREA NITROGEN BLOOD 21 mg/dL (7-21)
[2023-07-17 08:00] VITALS: BP 117/62; PULSE 81; RESP 18; TEMP 97.3
[2023-07-17] MEDS: METOPROLOL TARTRATE 50MG TABLET PO SCH ×2 (09:00→20:52)
[2023-07-17] MEDS: SERTRALINE HCL 50MG TABLET PO SCH (09:00)
[2023-07-17 09:23] VITALS: PULSE 82; RESP 20
[2023-07-17] MEDS: ACETAMINOPHEN 325MG TABLET PO PRN (10:59)
[2023-07-17] MEDS ORDERED: OXYMETAZOLINE HCL NASAL SPRAY 15ML BOTHNSTRLS PRN (12:30)
[2023-07-17 13:42] VITALS: PULSE 84; RESP 19
[2023-07-17] MEDS ORDERED: LOPERAMIDE HCL 2MG CAPSULE PO PRN (16:45)
[2023-07-17 20:00] VITALS: BP 129/78; PULSE 94; RESP 20; TEMP 97.8
[2023-07-17 21:06] VITALS: PULSE 98; RESP 20; O2SAT 98
[2023-07-17] MEDS: BUDESONIDE 0.5MG/2ML NEB HHN SCH (21:06)
[2023-07-18] MEDS: ZOLPIDEM TARTRATE 5MG TABLET PO PRN ×2 (00:15→21:08)
[2023-07-18] MEDS: IPRATROPIUM/ALBUTEROL 0.5-3(2.5)MG/3ML NEB HHN SCH ×4 (01:16→22:02)
[2023-07-18 01:17] VITALS: PULSE 95; RESP 18
[2023-07-18] MEDS: ENOXAPARIN 30MG/0.3ML SYR SUBCUT SCH ×2 (06:15→17:25)
[2023-07-18 07:46] VITALS: PULSE 101; RESP 18
[2023-07-18] MEDS: BUDESONIDE 0.5MG/2ML NEB HHN SCH ×2 (07:46→22:02)
[2023-07-18 08:00] VITALS: BP 124/68; PULSE 100; RESP 18; TEMP 98
[2023-07-18] MEDS: METOPROLOL TARTRATE 50MG TABLET PO SCH ×2 (09:00→21:08)
[2023-07-18] MEDS: SERTRALINE HCL 50MG TABLET PO SCH (09:06)
[2023-07-18] MEDS: ACETAMINOPHEN 325MG TABLET PO PRN ×2 (09:06→13:39)
[2023-07-18 15:41] VITALS: PULSE 102; RESP 18
[2023-07-18 20:00] VITALS: BP 133/75; PULSE 98; RESP 19; TEMP 97.1
[2023-07-18 22:02] VITALS: PULSE 98; RESP 18; O2SAT 99
[2023-07-19] MEDS: ZOLPIDEM TARTRATE 5MG TABLET PO PRN ×2 (00:06→22:53)
[2023-07-19 01:25] VITALS: PULSE 99; RESP 20; O2SAT 99
[2023-07-19] MEDS: IPRATROPIUM/ALBUTEROL 0.5-3(2.5)MG/3ML NEB HHN SCH ×3 (01:25→20:55)
[2023-07-19] MEDS: ENOXAPARIN 30MG/0.3ML SYR SUBCUT SCH ×2 (06:08→16:59)
[2023-07-19 08:00] VITALS: BP 111/63; PULSE 114; RESP 17; TEMP 97.3
[2023-07-19 08:03] LABS: EOSINOPHILS % 3.3 % (0.0-5.0); HEMATOCRIT. 27.5 % (36.0-48.0); HEMOGLOBIN. 8.5 g/dL (12.0-16.0); LYMPHOCYTES % 12.3 % (20.0-50.0); MEAN CORPUSCULAR HEMOGLOBIN 26.8 pg (28.0-32.0); MEAN CORPUSCULAR HGB CONC 30.8 g/dL (31.0-37.0); MEAN CORPUSCULAR VOLUME 87.2 fL (81.0-99.0); MEAN PLATELET VOLUME 8.4 fl (7.4-10.4); MONOCYTES % 10.3 % (2.0-8.0); NEUTROPHILS % 73.1 % (40.0-76.0); PLATELET 163 x1000/uL (130-400); RED BLOOD CELL COUNT 3.16 mill/uL (4.2-5.4); RED CELL DISTRIBUTION WIDTH 23.8 % (11.6-14.6); WHITE BLOOD COUNT 6.3 x1000/uL (4.5-11.0)
[2023-07-19 08:07] LABS: DIFFERENTIAL COMMENT 1
[2023-07-19 08:45] LABS: CHLORIDE 106 mEq/L (98-107); INDEX HEMOLYSI 1 (1-3); INDEX ICTERIC 1 (1-4); INDEX LIPEMIC 1 (1-3); SODIUM 143 mEq/L (136-145)
[2023-07-19] MEDS: SERTRALINE HCL 50MG TABLET PO SCH (09:00)
[2023-07-19] MEDS: METOPROLOL TARTRATE 50MG TABLET PO SCH ×2 (09:00→21:48)
[2023-07-19 09:01] LABS: CALCIUM 8.8 mg/dL (8.5-10.1); CARBON DIOXIDE 36 mEq/L (21-32); CREATININE 0.9 mg/dL (0.6-1.3); GLUCOSE 68 mg/dL (70-105); IRON 21 ug/dL (50-175); TOTAL IRON BINDING CAPACITY 335 ug/dL (250-450); UREA NITROGEN BLOOD 20 mg/dL (7-21)
[2023-07-19] MEDS: ACETAMINOPHEN 325MG TABLET PO PRN ×2 (09:07→13:35)
[2023-07-19] MEDS: BUDESONIDE 0.5MG/2ML NEB HHN SCH ×2 (15:00→20:55)
[2023-07-19 16:03] LABS: FOLIC ACID (FOLATE) SERUM 6.6 ng/mL (>5.38)
[2023-07-19 20:55] VITALS: PULSE 86; RESP 18; O2SAT 98
[2023-07-20 03:11] VITALS: PULSE 79; RESP 18
[2023-07-20] MEDS: IPRATROPIUM/ALBUTEROL 0.5-3(2.5)MG/3ML NEB HHN SCH ×4 (03:11→20:40)
[2023-07-20] MEDS: ENOXAPARIN 30MG/0.3ML SYR SUBCUT SCH ×2 (06:00→17:09)
[2023-07-20 07:39] VITALS: PULSE 91; RESP 20; O2SAT 96
[2023-07-20] MEDS: BUDESONIDE 0.5MG/2ML NEB HHN SCH (07:39)
[2023-07-20 08:00] VITALS: BP 126/68; PULSE 97; RESP 17; TEMP 97.6
[2023-07-20 08:03] LABS: HEMATOCRIT. 26.1 % (36.0-48.0); MEAN CORPUSCULAR HEMOGLOBIN 26.3 pg (28.0-32.0); MEAN CORPUSCULAR HGB CONC 30.6 g/dL (31.0-37.0); MEAN CORPUSCULAR VOLUME 86.1 fL (81.0-99.0); MEAN PLATELET VOLUME 8.4 fl (7.4-10.4); PLATELET 141 x1000/uL (130-400); RED BLOOD CELL COUNT 3.03 mill/uL (4.2-5.4); RED CELL DISTRIBUTION WIDTH 23.5 % (11.6-14.6); WHITE BLOOD COUNT 6.3 x1000/uL (4.5-11.0)
[2023-07-20 08:08] LABS: DIFFERENTIAL COMMENT 1
[2023-07-20 08:20] LABS: CHLORIDE 109 mEq/L (98-107); INDEX HEMOLYSI 1 (1-3); INDEX ICTERIC 1 (1-4); INDEX LIPEMIC 1 (1-3); POTASSIUM 4.4 mEq/L (3.5-5.1); SODIUM 143 mEq/L (136-145)
[2023-07-20 08:35] LABS: CALCIUM 8.5 mg/dL (8.5-10.1); CARBON DIOXIDE 33 mEq/L (21-32); GLUCOSE 77 mg/dL (70-105); T4 FREE 0.88 ng/dL (0.76-1.46); UREA NITROGEN BLOOD 23 mg/dL (7-21)
[2023-07-20] MEDS: SERTRALINE HCL 50MG TABLET PO SCH (09:00)
[2023-07-20] MEDS: METOPROLOL TARTRATE 50MG TABLET PO SCH ×2 (09:00→22:00)
[2023-07-20 09:30] LABS: ANISOCYTOSIS 2+; PLATELET ESTIMATE NORMAL
[2023-07-20] MEDS: ACETAMINOPHEN 325MG TABLET PO PRN (09:32)
[2023-07-20] MEDS: CYANOCOBALAMIN 1000MCG/ML VIAL IM SCH (14:00)
[2023-07-20 14:02] LABS: CLARITY URINE TURBID (CLEAR); COLOR URINE YELLOW (YELLOW); GLUCOSE URINE NEGATIVE (NEGATIVE); KETONES URINE NEGATIVE (NEGATIVE); LEUKOCYTE ESTERASE URINE 3+ (NEGATIVE); NITRITE URINE POSITIVE (NEGATIVE); OCCULT BLOOD URINE 3+ (NEGATIVE); PROTEIN URINE 2+ (NEGATIVE); SPECIFIC GRAVITY URINE 1.014 (1.005-1.030)
[2023-07-20 14:19] LABS: BACTERIA URINE 4+; WBC URINE TNTC /hpf (0-2)
[2023-07-20 14:20] LABS: RBC URINE 25-50 /hpf (0-2)
[2023-07-20 14:21] LABS: SQUAMOUS EPITHELIAL CELL URINE 1+ /lpf (RARE/1+)
[2023-07-20 20:00] VITALS: BP 126/76; PULSE 104; RESP 18; TEMP 97.7
[2023-07-20 20:40] VITALS: PULSE 90; RESP 18; O2SAT 98
[2023-07-21] MEDS: ZOLPIDEM TARTRATE 5MG TABLET PO PRN (00:24)
[2023-07-21] MEDS: BUDESONIDE 0.5MG/2ML NEB HHN SCH ×3 (01:00→21:34)
[2023-07-21 02:24] VITALS: PULSE 87; RESP 18; O2SAT 97
[2023-07-21] MEDS: ENOXAPARIN 30MG/0.3ML SYR SUBCUT SCH ×2 (06:35→17:28)
[2023-07-21 08:00] VITALS: BP 132/60; PULSE 90; RESP 18; TEMP 98.8
[2023-07-21] MEDS: METOPROLOL TARTRATE 50MG TABLET PO SCH ×2 (08:14→21:12)
[2023-07-21] MEDS: SERTRALINE HCL 50MG TABLET PO SCH (08:14)
[2023-07-21] MEDS: CYANOCOBALAMIN 1000MCG/ML VIAL IM SCH (08:14)
[2023-07-21] MEDS: ACETAMINOPHEN 325MG TABLET PO PRN (08:22)
[2023-07-21] MEDS: IPRATROPIUM/ALBUTEROL 0.5-3(2.5)MG/3ML NEB HHN SCH ×4 (12:00→21:34)
[2023-07-21] MEDS: ACETAMINOPHEN 500MG TABLET PO PRN (12:23)
[2023-07-21 15:04] LABS: CLARITY URINE TURBID (CLEAR); COLOR URINE DARK YELLOW (YELLOW); GLUCOSE URINE NEGATIVE (NEGATIVE); KETONES URINE NEGATIVE (NEGATIVE); LEUKOCYTE ESTERASE URINE 3+ (NEGATIVE); NITRITE URINE NEGATIVE (NEGATIVE); OCCULT BLOOD URINE 3+ (NEGATIVE); PROTEIN URINE 3+ (NEGATIVE); SPECIFIC GRAVITY URINE 1.014 (1.005-1.030)
[2023-07-21 15:28] LABS: BACTERIA URINE 4+; WBC URINE TNTC /hpf (0-2)
[2023-07-21 15:31] LABS: RBC URINE 50-100 /hpf (0-2); YEAST URINE NONE SEEN
[2023-07-21 15:32] LABS: SQUAMOUS EPITHELIAL CELL URINE 2+ /lpf (RARE/1+)
[2023-07-21 15:51] VITALS: PULSE 92; RESP 16; O2SAT 97
[2023-07-21] MEDS: LEVOFLOXACIN 500MG TABLET PO SCH (17:26)
[2023-07-21] MEDS: NITROFURANTOIN 100MG M/M CAPSULE PO SCH (17:29)
[2023-07-21 20:00] VITALS: BP 113/69; PULSE 93; RESP 18; TEMP 97.5
[2023-07-21 21:35] VITALS: PULSE 93; RESP 18
[2023-07-22] MEDS: ZOLPIDEM TARTRATE 5MG TABLET PO PRN (00:57)
[2023-07-22 01:42] VITALS: PULSE 92; RESP 18
[2023-07-22] MEDS: IPRATROPIUM/ALBUTEROL 0.5-3(2.5)MG/3ML NEB HHN SCH ×4 (01:42→21:10)
[2023-07-22] MEDS: ENOXAPARIN 30MG/0.3ML SYR SUBCUT SCH ×2 (06:26→17:54)
[2023-07-22] MEDS: ACETAMINOPHEN 500MG TABLET PO PRN ×2 (06:34→15:31)
[2023-07-22 07:33] VITALS: PULSE 82; RESP 20
[2023-07-22] MEDS: BUDESONIDE 0.5MG/2ML NEB HHN SCH ×2 (07:33→21:10)
[2023-07-22 08:00] VITALS: BP 118/58; PULSE 96; RESP 19; TEMP 97.9
[2023-07-22] MEDS: CYANOCOBALAMIN 1000MCG/ML VIAL IM SCH (10:13)
[2023-07-22] MEDS: SERTRALINE HCL 50MG TABLET PO SCH (10:14)
[2023-07-22] MEDS: NITROFURANTOIN 100MG M/M CAPSULE PO SCH ×2 (10:14→22:03)
[2023-07-22] MEDS: METOPROLOL TARTRATE 50MG TABLET PO SCH ×3 (10:15→22:04)
[2023-07-22 13:47] VITALS: PULSE 80; RESP 18
[2023-07-22] MEDS: LEVOFLOXACIN 500MG TABLET PO SCH (14:10)
[2023-07-22] MEDS ORDERED: METO25TA6 PO (17:01)
[2023-07-22 20:00] VITALS: BP 100/62; PULSE 100; RESP 20; TEMP 99.3
[2023-07-22 21:10] VITALS: PULSE 77; RESP 18
[2023-07-23] MEDS: ZOLPIDEM TARTRATE 5MG TABLET PO PRN ×2 (00:29→23:24)
[2023-07-23 01:40] VITALS: PULSE 79; RESP 18
[2023-07-23] MEDS: IPRATROPIUM/ALBUTEROL 0.5-3(2.5)MG/3ML NEB HHN SCH ×4 (01:40→20:32)
[2023-07-23] MEDS: ENOXAPARIN 30MG/0.3ML SYR SUBCUT SCH ×2 (06:01→17:42)
[2023-07-23] MEDS: ACETAMINOPHEN 500MG TABLET PO PRN ×2 (06:05→13:59)
[2023-07-23] MEDS: BUDESONIDE 0.5MG/2ML NEB HHN SCH ×2 (07:22→20:32)
[2023-07-23 07:26] VITALS: PULSE 84; RESP 20
[2023-07-23 08:00] VITALS: BP 124/68; PULSE 76; RESP 18; TEMP 98
[2023-07-23] MEDS: SERTRALINE HCL 50MG TABLET PO SCH (09:33)
[2023-07-23] MEDS: CYANOCOBALAMIN 1000MCG/ML VIAL IM SCH (09:33)
[2023-07-23] MEDS: METOPROLOL TARTRATE 50MG TABLET PO SCH ×2 (09:34→20:51)
[2023-07-23] MEDS: NITROFURANTOIN 100MG M/M CAPSULE PO SCH ×2 (09:34→20:52)
[2023-07-23] MEDS: LEVOFLOXACIN 500MG TABLET PO SCH (10:53)
[2023-07-23 16:52] VITALS: PULSE 92; RESP 20
[2023-07-23 20:10] VITALS: BP 133/71; PULSE 94; RESP 17; TEMP 97.3
[2023-07-23 20:30] VITALS: PULSE 88; RESP 20
[2023-07-23] MEDS: PRIMIDONE 50MG TABLET PO SCH (20:52)
[2023-07-24 02:05] VITALS: PULSE 84; RESP 20
[2023-07-24] MEDS: IPRATROPIUM/ALBUTEROL 0.5-3(2.5)MG/3ML NEB HHN SCH ×4 (02:09→20:53)
[2023-07-24] MEDS: ENOXAPARIN 30MG/0.3ML SYR SUBCUT SCH ×2 (06:03→16:38)
[2023-07-24] MEDS: ACETAMINOPHEN 500MG TABLET PO PRN ×2 (06:23→16:38)
[2023-07-24 08:00] VITALS: BP 99/51; PULSE 104; RESP 17; TEMP 96.4
[2023-07-24 08:09] VITALS: PULSE 81; RESP 20
[2023-07-24] MEDS: BUDESONIDE 0.5MG/2ML NEB HHN SCH ×2 (08:09→20:53)
[2023-07-24] MEDS: SERTRALINE HCL 50MG TABLET PO SCH (09:37)
[2023-07-24] MEDS: NITROFURANTOIN 100MG M/M CAPSULE PO SCH ×2 (09:37→20:14)
[2023-07-24] MEDS: METOPROLOL TARTRATE 50MG TABLET PO SCH ×2 (09:38→09:42)
[2023-07-24] MEDS: CYANOCOBALAMIN 1000MCG/ML VIAL IM SCH (09:38)
[2023-07-24 15:03] VITALS: PULSE 100; RESP 22
[2023-07-24 20:00] VITALS: BP 118/56; PULSE 102; RESP 18; TEMP 97.1
[2023-07-24] MEDS: PRIMIDONE 50MG TABLET PO SCH (20:14)
[2023-07-24 20:53] VITALS: PULSE 122; RESP 20; O2SAT 98
[2023-07-25] MEDS: ZOLPIDEM TARTRATE 5MG TABLET PO PRN ×2 (00:26→23:48)
[2023-07-25] MEDS: ACETAMINOPHEN 500MG TABLET PO PRN ×2 (00:38→08:19)
[2023-07-25 02:09] VITALS: PULSE 105; RESP 18
[2023-07-25] MEDS: IPRATROPIUM/ALBUTEROL 0.5-3(2.5)MG/3ML NEB HHN SCH ×3 (02:09→14:37)
[2023-07-25] MEDS: ENOXAPARIN 30MG/0.3ML SYR SUBCUT SCH ×2 (06:19→18:00)
[2023-07-25 06:24] LABS: BASOPHILS % 0.9 % (0.0-2.0); HEMATOCRIT. 26.7 % (36.0-48.0); HEMOGLOBIN. 8.3 g/dL (12.0-16.0); LYMPHOCYTES % 7.8 % (20.0-50.0); MEAN CORPUSCULAR HEMOGLOBIN 26.3 pg (28.0-32.0); MEAN CORPUSCULAR HGB CONC 30.9 g/dL (31.0-37.0); MEAN PLATELET VOLUME 8.3 fl (7.4-10.4); NEUTROPHILS % 74.3 % (40.0-76.0); PLATELET 180 x1000/uL (130-400); RED BLOOD CELL COUNT 3.14 mill/uL (4.2-5.4); RED CELL DISTRIBUTION WIDTH 22.7 % (11.6-14.6); WHITE BLOOD COUNT 6.4 x1000/uL (4.5-11.0)
[2023-07-25 06:55] LABS: DIFFERENTIAL COMMENT 1
[2023-07-25 07:03] LABS: POTASSIUM 4.3 mEq/L (3.5-5.1)
[2023-07-25 07:25] LABS: CALCIUM 8.4 mg/dL (8.5-10.1); CREATININE 1.2 mg/dL (0.6-1.3); T4 FREE 0.93 ng/dL (0.76-1.46); THYROID STIMULATING HORMONE 3.3 uIU/mL (0.36-3.74)
[2023-07-25 07:36] VITALS: PULSE 88; RESP 18
[2023-07-25] MEDS: BUDESONIDE 0.5MG/2ML NEB HHN SCH (07:36)
[2023-07-25 08:00] VITALS: BP 131/83; PULSE 99; RESP 20; TEMP 98
[2023-07-25] MEDS: NITROFURANTOIN 100MG M/M CAPSULE PO SCH ×2 (08:18→21:28)
[2023-07-25] MEDS: SERTRALINE HCL 50MG TABLET PO SCH (08:18)
[2023-07-25] MEDS: METOPROLOL TARTRATE 50MG TABLET PO SCH ×2 (08:18→21:30)
[2023-07-25] MEDS: CYANOCOBALAMIN 1000MCG/ML VIAL IM SCH (08:19)
[2023-07-25] MEDS ORDERED: NALOXONE HCL 0.4MG/ML VIAL IV PRN (10:30)
[2023-07-25] MEDS: HYDROCODONE/ACETAMINOPHEN 5/325MG TABLET PO PRN ×2 (10:31→15:55)
[2023-07-25 14:37] VITALS: PULSE 97; RESP 18
[2023-07-25 20:00] VITALS: BP 146/66; PULSE 106; RESP 20; TEMP 97
[2023-07-25] MEDS: PRIMIDONE 50MG TABLET PO SCH (21:29)
[2023-07-26 06:00] VITALS: BP 116/72; PULSE 108; RESP 20
[2023-07-26 06:11] LABS: FOLICLE STIMULATING HORMONE 44.7 mIU/mL (.); LUTEINIZING HORMONE 20.6 mIU/mL (.); PROLACTIN 22.8 ng/mL (4.8-23.3)
[2023-07-26] MEDS: ENOXAPARIN 30MG/0.3ML SYR SUBCUT SCH ×2 (06:17→16:44)
[2023-07-26] MEDS: HYDROCODONE/ACETAMINOPHEN 5/325MG TABLET PO PRN ×3 (06:29→23:01)
[2023-07-26 08:00] VITALS: BP 136/77; PULSE 95; RESP 20; TEMP 97.3
[2023-07-26] MEDS: NITROFURANTOIN 100MG M/M CAPSULE PO SCH ×2 (08:52→21:01)
[2023-07-26] MEDS: CYANOCOBALAMIN 1000MCG/ML VIAL IM SCH (08:52)
[2023-07-26] MEDS: SERTRALINE HCL 50MG TABLET PO SCH (08:52)
[2023-07-26] MEDS: METOPROLOL TARTRATE 50MG TABLET PO SCH ×2 (08:53→21:00)
[2023-07-26 20:00] VITALS: BP 107/65; PULSE 73; RESP 18; TEMP 97.3
[2023-07-26] MEDS: PRIMIDONE 50MG TABLET PO SCH (21:01)
[2023-07-27] MEDS: ZOLPIDEM TARTRATE 5MG TABLET PO PRN (01:43)
[2023-07-27] MEDS: ENOXAPARIN 30MG/0.3ML SYR SUBCUT SCH ×2 (06:28→18:18)
[2023-07-27 08:00] VITALS: BP 116/74; PULSE 91; RESP 19; TEMP 96.9
[2023-07-27] MEDS: SERTRALINE HCL 50MG TABLET PO SCH (08:50)
[2023-07-27] MEDS: METOPROLOL TARTRATE 50MG TABLET PO SCH ×2 (08:51→21:31)
[2023-07-27] MEDS: NITROFURANTOIN 100MG M/M CAPSULE PO SCH ×2 (08:51→21:31)
[2023-07-27] MEDS: GABAPENTIN 100MG CAPSULE PO SCH ×2 (13:51→21:32)
[2023-07-27] MEDS ORDERED: LACTULOSE 20G/30ML UDC PO NR (17:08)
[2023-07-27] MEDS ORDERED: BISACODYL 10MG SUPP PR PRN (17:15)
[2023-07-27 20:02] VITALS: BP 135/70; PULSE 94; RESP 17; TEMP 97.1
[2023-07-27] MEDS: PRIMIDONE 50MG TABLET PO SCH (21:31)
[2023-07-28] MEDS: GABAPENTIN 100MG CAPSULE PO SCH ×3 (06:24→21:38)
[2023-07-28] MEDS: ENOXAPARIN 30MG/0.3ML SYR SUBCUT SCH ×2 (06:25→18:52)
[2023-07-28 08:00] VITALS: BP 121/64; PULSE 94; RESP 17; TEMP 96.9
[2023-07-28] MEDS ORDERED: LACTULOSE 20G/30ML UDC PO PRN (08:00)
[2023-07-28] MEDS: SERTRALINE HCL 50MG TABLET PO SCH (09:31)
[2023-07-28] MEDS: NITROFURANTOIN 100MG M/M CAPSULE PO SCH ×2 (09:31→21:37)
[2023-07-28] MEDS: METOPROLOL TARTRATE 50MG TABLET PO SCH ×2 (09:32→21:00)
[2023-07-28] MEDS: HYDROCODONE/ACETAMINOPHEN 5/325MG TABLET PO PRN (09:32)
[2023-07-28 20:00] VITALS: BP 119/80; PULSE 99; RESP 18; TEMP 97.9
[2023-07-28] MEDS: PRIMIDONE 50MG TABLET PO SCH (21:38)
[2023-07-29] MEDS: ENOXAPARIN 30MG/0.3ML SYR SUBCUT SCH ×2 (06:22→17:16)
[2023-07-29] MEDS: GABAPENTIN 100MG CAPSULE PO SCH ×3 (06:22→22:01)
[2023-07-29 08:00] VITALS: BP 123/63; PULSE 95; RESP 20; TEMP 97.7
[2023-07-29] MEDS: METOPROLOL TARTRATE 50MG TABLET PO SCH ×2 (10:19→21:00)
[2023-07-29] MEDS: SERTRALINE HCL 50MG TABLET PO SCH (10:19)
[2023-07-29] MEDS: NITROFURANTOIN 100MG M/M CAPSULE PO SCH ×2 (10:19→22:00)
[2023-07-29] MEDS: HYDROCODONE/ACETAMINOPHEN 5/325MG TABLET PO PRN (14:11)
[2023-07-29 20:00] VITALS: BP 106/66; PULSE 118; RESP 16; TEMP 97.9
[2023-07-29] MEDS: BUDESONIDE 0.5MG/2ML NEB HHN SCH (20:19)
[2023-07-29 20:21] VITALS: PULSE 63; RESP 18; O2SAT 90
[2023-07-29] MEDS: IPRATROPIUM/ALBUTEROL 0.5-3(2.5)MG/3ML NEB HHN SCH (20:21)
[2023-07-29] MEDS: PRIMIDONE 50MG TABLET PO SCH (22:01)
[2023-07-30 01:00] VITALS: PULSE 47; RESP 16; O2SAT 99
[2023-07-30] MEDS: IPRATROPIUM/ALBUTEROL 0.5-3(2.5)MG/3ML NEB HHN SCH ×4 (01:00→21:44)
[2023-07-30] MEDS: ENOXAPARIN 30MG/0.3ML SYR SUBCUT SCH ×2 (06:07→17:30)
[2023-07-30] MEDS: GABAPENTIN 100MG CAPSULE PO SCH (06:07)
[2023-07-30 08:00] VITALS: BP 108/76; PULSE 89; RESP 20; TEMP 97.5
[2023-07-30 08:53] VITALS: PULSE 58; RESP 17; O2SAT 98
[2023-07-30] MEDS: BUDESONIDE 0.5MG/2ML NEB HHN SCH ×2 (08:53→21:44)
[2023-07-30] MEDS: METOPROLOL TARTRATE 50MG TABLET PO SCH ×2 (09:00→21:35)
[2023-07-30] MEDS: NITROFURANTOIN 100MG M/M CAPSULE PO SCH ×2 (09:50→21:31)
[2023-07-30] MEDS: SERTRALINE HCL 50MG TABLET PO SCH (09:50)
[2023-07-30 15:38] VITALS: PULSE 89; RESP 19; O2SAT 98
[2023-07-30 20:00] VITALS: BP 111/64; PULSE 76; RESP 23; TEMP 97.8
[2023-07-30] MEDS: PRIMIDONE 50MG TABLET PO SCH (21:32)
[2023-07-30 21:44] VITALS: PULSE 84; RESP 20
[2023-07-31 03:10] VITALS: PULSE 72; RESP 20
[2023-07-31] MEDS: IPRATROPIUM/ALBUTEROL 0.5-3(2.5)MG/3ML NEB HHN SCH ×2 (03:10→09:09)
[2023-07-31] MEDS: ENOXAPARIN 30MG/0.3ML SYR SUBCUT SCH (06:27)
[2023-07-31 08:00] VITALS: BP 105/75; PULSE 118; RESP 18; TEMP 96.8
[2023-07-31 09:09] VITALS: PULSE 72; RESP 16; O2SAT 98
[2023-07-31] MEDS: BUDESONIDE 0.5MG/2ML NEB HHN SCH (09:09)
[2023-07-31] MEDS: SERTRALINE HCL 50MG TABLET PO SCH (09:26)
[2023-07-31] MEDS: METOPROLOL TARTRATE 50MG TABLET PO SCH (09:27)
[2023-07-31] MEDS ORDERED: MY50 PO (11:13)
[2023-07-31] MEDS ORDERED: APIX5TAB PO (11:13)
[2023-07-31] MEDS ORDERED: METO-539 PO (11:13)
[2023-07-31] MEDS ORDERED: SERT-422 PO (11:13)
[2023-07-31] MEDS ORDERED: ALBU18HF2 PO (11:13)
[2023-07-31 13:12] VITALS: BP 131/76; PULSE 100; TEMP 96.8; O2SAT 96
== END 2023-07-31 15:42 | disposition home health service (06) | DRG 190 ==
PROVIDERS: ADMIT Physical Medicine & Rehabilitation Spinal Cord Injury Medicine; ATTEND Internal Medicine
DX: J44.1 Chronic obstructive pulmonary disease with (acute) exacerbation (principal); A41.9 Sepsis, unspecified organism; I50.33 Acute on chronic diastolic (congestive) heart failure; J96.21 Acute and chronic respiratory failure with hypoxia; B37.49 Other urogenital candidiasis; C64.9 Malignant neoplasm of unspecified kidney, except renal pelvis; I13.0 Hypertensive heart and chronic kidney disease with heart failure and stage 1 through stage 4 chronic kidney disease, or unspecified chronic kidney disease; L03.115 Cellulitis of right lower limb; I42.0 Dilated cardiomyopathy; E46 Unspecified protein-calorie malnutrition; M48.56XA Collapsed vertebra, not elsewhere classified, lumbar region, initial encounter for fracture; M48.54XA Collapsed vertebra, not elsewhere classified, thoracic region, initial encounter for fracture; F33.1 Major depressive disorder, recurrent, moderate; N18.9 Chronic kidney disease, unspecified; I48.0 Paroxysmal atrial fibrillation; D64.9 Anemia, unspecified; E61.1 Iron deficiency; E66.9 Obesity, unspecified; I27.20 Pulmonary hypertension, unspecified; M81.0 Age-related osteoporosis without current pathological fracture; R04.0 Epistaxis; Z68.39 Body mass index [BMI] 39.0-39.9, adult; R26.9 Unspecified abnormalities of gait and mobility; G25.0 Essential tremor; I07.1 Rheumatic tricuspid insufficiency; R30.0 Dysuria; E55.9 Vitamin D deficiency, unspecified; E66.01 Morbid (severe) obesity due to excess calories; E78.00 Pure hypercholesterolemia, unspecified; K80.20 Calculus of gallbladder without cholecystitis without obstruction; G89.29 Other chronic pain; E04.2 Nontoxic multinodular goiter; K76.0 Fatty (change of) liver, not elsewhere classified; M48.02 Spinal stenosis, cervical region; D25.9 Leiomyoma of uterus, unspecified; B96.20 Unspecified Escherichia coli [E. coli] as the cause of diseases classified elsewhere; F41.9 Anxiety disorder, unspecified; R26.81 Unsteadiness on feet; R53.81 Other malaise; R19.7 Diarrhea, unspecified; M54.6 Pain in thoracic spine; E79.0 Hyperuricemia without signs of inflammatory arthritis and tophaceous disease; R94.6 Abnormal results of thyroid function studies; M47.22 Other spondylosis with radiculopathy, cervical region; M50.10 Cervical disc disorder with radiculopathy, unspecified cervical region; Z63.4 Disappearance and death of family member; Z79.899 Other long term (current) drug therapy; Z99.81 Dependence on supplemental oxygen; Z82.49 Family history of ischemic heart disease and other diseases of the circulatory system; Z85.528 Personal history of other malignant neoplasm of kidney; Z87.442 Personal history of urinary calculi; Z87.891 Personal history of nicotine dependence; Z90.5 Acquired absence of kidney; Z91.81 History of falling; Z88.5 Allergy status to narcotic agent
CPT/HCPCS: 36415; 72141; 76536; 76700; 80048; 80053; 81003; 82306; 82330; 82533; 82607; 82728; 82746; 83001; 83002; 83036; 83540; 83550; 83970; 84134; 84146; 84439; 84443; 84481; 84550; 85025; 87077; 87186; 93970; 94640; 97110; 97116; 97162; 97166; 97530; 97535; A4565; J1650; J3420; J7626; Q0162

== ENCOUNTER 2023-12-03 19:28 | Inpatient (IN) | payer MEDICARE ==
[~2023-12-03] VITALS: Ht 160 cm; Wt 90.7 kg
[~2023-12-03 19:28] MED LIST changes: -ALBU18HF2 PO; +ALBU6.7H15 INH; -FLUC100T PO; -FURO40TA5 PO; -LEVA0.6320 NEB; -LIDO700A30 TP; -MONT-39 PO; -ONDA4TAB50 PO
[2023-12-03] MEDS: ALBUTEROL (0.083%) 2.5MG/3ML NEB HHN STA (20:01)
[2023-12-03] MEDS: METHYLPREDNISOLONE SOD SUCC 125MG/2ML (ACT-O-VIAL) IV STA (20:01)
[2023-12-03 20:30] VITALS: RESP 42
[2023-12-03 21:26] LABS: BG BASE EXCESS 9.1 mmol/L (-2.0-2.0); BG CARBOXYHEMOGLOBIN 0.6 % (0.5-1.5); BG DEOXYHEMOGLOBIN 5.2 % (0.0-5.0); BG FRACTION INSPIRED OXYGEN 40; BG HCO3 ACT 37.1 mmol/L (22.0-26.0); BG METHEMOGLOBIN 0.3 % (0.0-1.5); BG OXYGEN SATURATION 94.8 % (92.0-98.5); BG OXYHEMOGLOBIN 93.9 % (94.0-97.0); BG PCO2 74.7 mmHg (35.0-45.0); BG PH 7.314 (7.350-7.450); BG PO2 77.3 mmHg (75.0-100.0); BG SAMPLE SITE RIGHT RADIAL; BG TOTAL HEMOGLOBIN 9.3 g/dL (12.0-18.0); BG TOTAL RESPIRATORY RATE 34 b/min; BG VENT MODE MASK - BIPAP
[2023-12-03] MEDS ORDERED: MAGNESIUM/ALUMINUM HYDROXIDE/SIMETHICONE 30ML UDC PO PRN (21:30)
[2023-12-03] MEDS ORDERED: CLONIDINE 0.1MG TABLET PO PRN (21:30)
[2023-12-03] MEDS ORDERED: ACETAMINOPHEN 325MG TABLET PO PRN (21:30)
[2023-12-03] MEDS ORDERED: ALBUTEROL 6.7GM HFA INHALER INH PRN (21:30)
[2023-12-03] MEDS ORDERED: ONDANSETRON HCL 4MG/2ML INJ IV PRN (21:30)
[2023-12-03] MEDS ORDERED: DOCUSATE SODIUM 100MG CAPSULE PO PRN (21:30)
[2023-12-03] MEDS: MAGNESIUM 2 G PREMIX 50 ML IV ONE (21:40)
[2023-12-03 21:47] LABS: HEMATOCRIT. 28.3 % (36.0-48.0); MEAN CORPUSCULAR HGB CONC 28.3 g/dL (31.0-37.0); MEAN CORPUSCULAR VOLUME 84.7 fL (81.0-99.0); MEAN PLATELET VOLUME 9.5 fl (7.4-10.4); PLATELET 210 x1000/uL (130-400); RED BLOOD CELL COUNT 3.34 mill/uL (4.2-5.4); RED CELL DISTRIBUTION WIDTH 20.5 % (11.6-14.6); WHITE BLOOD COUNT 9.5 x1000/uL (4.5-11.0)
[2023-12-03 21:52] LABS: INR 1.1; PARTIAL THROMBOPLASTIN TIME 28.6 sec (23.4-31.0); PROTHROMBIN TIME 11.4 sec (9.6-11.0)
[2023-12-03 21:55] LABS: ALANINE AMINOTRANSFERASE < 7 IU/L (10-49); ALBUMIN 3.2 g/dL (3.2-4.8); ASPARTATE AMINOTRANSFERASE 14 IU/L (<34); BILIRUBIN TOTAL 1.1 mg/dL (0.1-1.0); CALCIUM 9.6 mg/dL (8.7-10.4); CARBON DIOXIDE 35 mEq/L (21-32); CHLORIDE 100 mEq/L (98-107); CREATININE 0.9 mg/dL (0.6-1.0); DIFFERENTIAL COMMENT 1; GLUCOSE 95 mg/dL (70-105); POTASSIUM 4.5 mEq/L (3.5-5.1); PROTEIN TOTAL 6.3 g/dL (6.0-8.3); SODIUM 140 mEq/L (136-145); TROPONIN I HIGH SENSITIVITY 13 ng/L (3.0-34); UREA NITROGEN BLOOD 36 mg/dL (9-23)
[2023-12-03 21:59] LABS: NUCLEATED RED BLOOD CELLS 5 /100 WBC; PLATELET ESTIMATE NORMAL
[2023-12-03 22:00] VITALS: RESP 38
[2023-12-03] MEDS: ALBUTEROL (0.083%) 2.5MG/3ML NEB HHN NR (22:00)
[2023-12-03] MEDS: IPRATROPIUM BROMIDE (0.02%) 0.5MG/2.5ML NEB HHN STA (22:00)
[2023-12-03 22:04] LABS: ETHANOL BLOOD < 10 mg/dL (<10)
[2023-12-03] MEDS: METHYLPREDNISOLONE SOD SUCC 125MG/2ML (ACT-O-VIAL) IV NR (22:07)
[2023-12-03] MEDS: DILTIAZEM HCL 125 MG in DEXT 5% WATER 100 ML IV ONE ×2 (22:07→22:33)
[2023-12-03] MEDS: CEFTRIAXONE 1GM PREMIX 50 ML IV ONE (22:45)
[2023-12-04] VITALS (9 sets, daily range): BP systolic 108–134; BP diastolic 70–80; PULSE 97–109; RESP 19–31; TEMP 97.6–97.8; O2SAT 99
[2023-12-04] MEDS: AZITHROMYCIN 500MG/250ML 250 ML IV ONE (01:04)
[2023-12-04 08:04] LABS: HEMATOCRIT. 25.8 % (36.0-48.0); HEMOGLOBIN. 7.6 g/dL (12.0-16.0); MEAN CORPUSCULAR HEMOGLOBIN 24.1 pg (28.0-32.0); MEAN CORPUSCULAR HGB CONC 29.4 g/dL (31.0-37.0); MEAN PLATELET VOLUME 8.9 fl (7.4-10.4); PLATELET 173 x1000/uL (130-400); RED BLOOD CELL COUNT 3.14 mill/uL (4.2-5.4); RED CELL DISTRIBUTION WIDTH 20.6 % (11.6-14.6); WHITE BLOOD COUNT 6.5 x1000/uL (4.5-11.0)
[2023-12-04 08:11] LABS: DIFFERENTIAL COMMENT 1
[2023-12-04 08:26] LABS: ALANINE AMINOTRANSFERASE < 7 IU/L (10-49); ALBUMIN 3.1 g/dL (3.2-4.8); ASPARTATE AMINOTRANSFERASE 12 IU/L (<34); BILIRUBIN DIRECT 0.3 mg/dL (<=3.0); BILIRUBIN TOTAL 0.6 mg/dL (0.1-1.0); CALCIUM 9.5 mg/dL (8.7-10.4); CARBON DIOXIDE 37 mEq/L (21-32); CHLORIDE 100 mEq/L (98-107); CHOLESTEROL 138 mg/dL (<200); CREATININE 0.9 mg/dL (0.6-1.0); GLUCOSE 124 mg/dL (70-105); HDL CHOLESTEROL 40 mg/dL (>65); LDL CHOLESTEROL 76 mg/dL (5-100); PHOSPHORUS 1.9 mg/dL (2.5-4.9); POTASSIUM 5.3 mEq/L (3.5-5.1); SODIUM 140 mEq/L (136-145); T4 FREE 0.82 ng/dL (0.89-1.76); THYROID STIMULATING HORMONE 1.49 uIU/mL (0.55-4.78); TRIGLYCERIDE 90 mg/dL (0-150); TROPONIN I HIGH SENSITIVITY 16 ng/L (3.0-34); UREA NITROGEN BLOOD 34 mg/dL (9-23)
[2023-12-04] MEDS ORDERED: PANTOPRAZOLE 40MG DR TABLET PO SCH (09:00)
[2023-12-04] MEDS: PANTOPRAZOLE 40MG DR TABLET PO SCH (09:07)
[2023-12-04] MEDS: APIXABAN 5 MG TABLET PO SCH (09:08)
[2023-12-04 11:21] LABS: ANISOCYTOSIS 2+; HYPOCHROMASIA 1+; PLATELET ESTIMATE NORMAL
[2023-12-04 11:37] LABS: BG BASE EXCESS 11.1 mmol/L (-2.0-2.0); BG CARBOXYHEMOGLOBIN 1.1 % (0.5-1.5); BG DEOXYHEMOGLOBIN 3.8 % (0.0-5.0); BG FRACTION INSPIRED OXYGEN 36; BG HCO3 ACT 37.3 mmol/L (22.0-26.0); BG METHEMOGLOBIN 0.5 % (0.0-1.5); BG OXYGEN SATURATION 96.1 % (92.0-98.5); BG OXYHEMOGLOBIN 94.6 % (94.0-97.0); BG PCO2 60.8 mmHg (35.0-45.0); BG PH 7.406 (7.350-7.450); BG PO2 81.7 mmHg (75.0-100.0); BG VENT MODE NASAL CANNULA
[2023-12-04 14:56] LABS: TROPONIN I HIGH SENSITIVITY 17 ng/L (3.0-34)
[2023-12-04] MEDS: IPRATROPIUM BROMIDE (0.02%) 0.5MG/2.5ML NEB HHN SCH (15:00)
[2023-12-04] MEDS: ATORVASTATIN CALCIUM 10MG TABLET PO SCH (21:43)
[2023-12-05] VITALS (13 sets, daily range): BP systolic 105–136; BP diastolic 58–83; PULSE 107–120; RESP 15–29; TEMP 97.1–98.3; O2SAT 94–99
[2023-12-05] MEDS: BUDESONIDE 0.5MG/2ML NEB HHN SCH
[2023-12-05] MEDS: IPRATROPIUM BROMIDE (0.02%) 0.5MG/2.5ML NEB HHN NR
[2023-12-05] MEDS: ZOLPIDEM TARTRATE 5MG TABLET PO NR (01:42)
[2023-12-05 09:39] LABS: BG BASE EXCESS 19.8 mmol/L (-2.0-2.0); BG CARBOXYHEMOGLOBIN 1.2 % (0.5-1.5); BG DEOXYHEMOGLOBIN 10.2 % (0.0-5.0); BG FRACTION INSPIRED OXYGEN 32; BG HCO3 ACT 46.1 mmol/L (22.0-26.0); BG OXYGEN SATURATION 89.7 % (92.0-98.5); BG OXYHEMOGLOBIN 88.6 % (94.0-97.0); BG PCO2 68.2 mmHg (35.0-45.0); BG PH 7.448 (7.350-7.450); BG PO2 56.7 mmHg (75.0-100.0); BG SAMPLE SITE RIGHT RADIAL; BG TOTAL HEMOGLOBIN 7.7 g/dL (12.0-18.0); BG VENT MODE NASAL CANNULA
[2023-12-05] MEDS: DILTIAZEM HCL 90MG TABLET PO SCH (10:08)
[2023-12-05] MEDS: DIGOXIN 500MCG/2ML AMP IV NR ×2 (11:15→19:27)
[2023-12-05] MEDS ORDERED: PRIM50TA5 PO (17:14)
[2023-12-05] MEDS ORDERED: P20 PO (17:14)
[2023-12-05] MEDS ORDERED: DIGOXIN 250MCG TABLET PO ONE (17:30)
[2023-12-05] MEDS: METOPROLOL TARTRATE 50MG TABLET PO SCH (21:59)
[2023-12-05] MEDS ORDERED: DIGOXIN 250MCG TABLET PO NR (23:00)
[2023-12-05] MEDS: VANCOMYCIN 1G PREMIX 200 ML IV SCH (23:21)
[2023-12-06] VITALS (15 sets, daily range): BP systolic 83–144; BP diastolic 54–100; PULSE 82–106; RESP 16–31; TEMP 97.8–99.8; O2SAT 95–98
[2023-12-06] MEDS: ZOLPIDEM TARTRATE 5MG TABLET PO NR (00:05)
[2023-12-06] MEDS ORDERED: LIDOCAINE HCL 1% 10 MG/ML 10ML VIAL ONE (07:26)
[2023-12-06] MEDS: VANCOMYCIN 1G PREMIX 200 ML IV SCH (09:42)
[2023-12-06] MEDS: MELATONIN 3MG TABLET PO NR (21:33)
[2023-12-07] VITALS (20 sets, daily range): BP systolic 92–135; BP diastolic 58–79; PULSE 86–112; RESP 16–25; TEMP 97.5–99.1; O2SAT 94–96
[2023-12-07 06:16] LABS: CALCIUM 8.5 mg/dL (8.7-10.4); CHLORIDE 100 mEq/L (98-107); CREATININE 0.7 mg/dL (0.6-1.0); GLUCOSE 79 mg/dL (70-105); SODIUM 140 mEq/L (136-145); UREA NITROGEN BLOOD 20 mg/dL (9-23)
[2023-12-07 06:59] LABS: BASOPHILS % 0.6 % (0.0-2.0); DIFFERENTIAL COMMENT 0; HEMATOCRIT. 24.5 % (36.0-48.0); LYMPHOCYTES % 8.1 % (20.0-50.0); MEAN CORPUSCULAR HEMOGLOBIN 23.7 pg (28.0-32.0); MEAN CORPUSCULAR HGB CONC 28.3 g/dL (31.0-37.0); MEAN CORPUSCULAR VOLUME 83.5 fL (81.0-99.0); MEAN PLATELET VOLUME 9.1 fl (7.4-10.4); MONOCYTES % 12.1 % (2.0-8.0); NEUTROPHILS % 78.2 % (40.0-76.0); PLATELET 177 x1000/uL (130-400); RED BLOOD CELL COUNT 2.94 mill/uL (4.2-5.4); RED CELL DISTRIBUTION WIDTH 20.7 % (11.6-14.6); WHITE BLOOD COUNT 8.6 x1000/uL (4.5-11.0)
[2023-12-07 07:05] LABS: CARBON DIOXIDE > 40 mEq/L (21-32)
[2023-12-07 07:58] LABS: HEMOGLOBIN. 6.9 g/dL (12.0-16.0)
[2023-12-07] MEDS: FAMOTIDINE 20MG TABLET PO SCH (10:22)
[2023-12-07] MEDS: SODIUM PHOS,M-BASIC-D-BASIC 20 MM in DEXT 5% WATER 243.3333 ML IV NR (10:33)
[2023-12-07] MEDS: FUROSEMIDE 20MG/2ML VIAL IVP NR (18:03)
[2023-12-08] VITALS (16 sets, daily range): BP systolic 104–124; BP diastolic 60–99; PULSE 78–101; RESP 13–26; TEMP 97.3–98.2; O2SAT 98
[2023-12-08 01:43] LABS: HEMATOCRIT 28.5 % (36.0-48.0); HEMOGLOBIN 8.5 g/dL (12.0-16.0)
[2023-12-08] MEDS: GUAIFENESIN 200MG/10ML SUGAR FREE UDC PO PRN (06:05)
[2023-12-08] MEDS: ACETAMINOPHEN 325MG TABLET PO PRN (06:05)
[2023-12-08 07:31] LABS: HEMATOCRIT. 26.9 % (36.0-48.0); HEMOGLOBIN. 8.4 g/dL (12.0-16.0); MEAN CORPUSCULAR HEMOGLOBIN 26.1 pg (28.0-32.0); MEAN CORPUSCULAR HGB CONC 31.3 g/dL (31.0-37.0); MEAN CORPUSCULAR VOLUME 83.5 fL (81.0-99.0); MEAN PLATELET VOLUME 8.7 fl (7.4-10.4); PLATELET 153 x1000/uL (130-400); RED BLOOD CELL COUNT 3.22 mill/uL (4.2-5.4); RED CELL DISTRIBUTION WIDTH 19.1 % (11.6-14.6); WHITE BLOOD COUNT 8.1 x1000/uL (4.5-11.0)
[2023-12-08 07:58] LABS: ALANINE AMINOTRANSFERASE 10 IU/L (10-49); ALBUMIN 2.8 g/dL (3.2-4.8); ASPARTATE AMINOTRANSFERASE 17 IU/L (<34); BILIRUBIN TOTAL 0.8 mg/dL (0.1-1.0); CALCIUM 8.3 mg/dL (8.7-10.4); CHLORIDE 99 mEq/L (98-107); CREATININE 0.8 mg/dL (0.6-1.0); GLUCOSE 72 mg/dL (70-105); PHOSPHORUS 3.2 mg/dL (2.5-4.9); PROTEIN TOTAL 5.2 g/dL (6.0-8.3); SODIUM 141 mEq/L (136-145); UREA NITROGEN BLOOD 19 mg/dL (9-23)
[2023-12-08 07:59] LABS: CARBON DIOXIDE > 40 mEq/L (21-32)
[2023-12-08 08:19] LABS: DIFFERENTIAL COMMENT 1
[2023-12-08] MEDS: FAMOTIDINE 20MG TABLET PO SCH (09:19)
[2023-12-08] MEDS: THROAT LOZENGES-BENZOCAINE/MENTH/CETYLPYRD CL LOZENGES MM PRN (12:56)
[2023-12-08 13:24] LABS: ANISOCYTOSIS 1+; HYPOCHROMASIA 1+; PLATELET ESTIMATE NORMAL
[2023-12-09] VITALS (16 sets, daily range): BP systolic 99–117; BP diastolic 60–72; PULSE 0–100; RESP 15–30; TEMP 97.2–98; O2SAT 96–97
[2023-12-09] MEDS ORDERED: DIGO125T80 MT (12:25)
[2023-12-09] MEDS ORDERED: DILT120C88 MT (12:25)
[2023-12-09] MEDS: DILTIAZEM HCL 60MG TABLET PO SCH (14:11)
[2023-12-09] MEDS: ALBUTEROL (0.083%) 2.5MG/3ML NEB HHN PRN (20:33)
[2023-12-10] VITALS (13 sets, daily range): BP systolic 102–130; BP diastolic 48–79; PULSE 56–92; RESP 15–27; TEMP 97–98; O2SAT 95–96
[2023-12-10] MEDS ORDERED: THROAT LOZENGES-BENZOCAINE/MENTH/CETYLPYRD CL LOZENGES MM PRN (19:15)
[2023-12-11] VITALS (7 sets, daily range): BP systolic 105–135; BP diastolic 56–70; PULSE 83–99; RESP 18–20; TEMP 96.9–98.5
[2023-12-12] VITALS: PULSE 76; RESP 20; TEMP 97.5
[2023-12-12 01:07] VITALS: PULSE 65; RESP 18
[2023-12-12 04:00] VITALS: BP 136/67; PULSE 85; RESP 19; TEMP 98.4
[2023-12-12 09:00] VITALS: PULSE 90
== END 2023-12-12 12:40 | disposition hospice, home (50) | DRG 871 ==
LOC: ER 19:28 → 5EST 21:20 → 7WST 12-10 20:50
PROVIDERS: ADMIT Internal Medicine; ATTEND Internal Medicine
PROC: 5A09357 Assistance with Respiratory Ventilation, Less than 24 Consecutive Hours, Continuous Positive Airway Pressure (ICD-10-PCS; principal; 2023-12-03)
PROC: 5A09357 Assistance with Respiratory Ventilation, Less than 24 Consecutive Hours, Continuous Positive Airway Pressure (ICD-10-PCS; 2023-12-04)
PROC: 02HV33Z Insertion of Infusion Device into Superior Vena Cava, Percutaneous Approach (ICD-10-PCS; 2023-12-06)
PROC: B548ZZA Ultrasonography of Superior Vena Cava, Guidance (ICD-10-PCS; 2023-12-06)
PROC: 30233N1 Transfusion of Nonautologous Red Blood Cells into Peripheral Vein, Percutaneous Approach (ICD-10-PCS; 2023-12-07)
PROC: 5A09357 Assistance with Respiratory Ventilation, Less than 24 Consecutive Hours, Continuous Positive Airway Pressure (ICD-10-PCS; 2023-12-09)
DX: A41.9 Sepsis, unspecified organism (principal); J18.9 Pneumonia, unspecified organism; J96.22 Acute and chronic respiratory failure with hypercapnia; J44.1 Chronic obstructive pulmonary disease with (acute) exacerbation; I13.0 Hypertensive heart and chronic kidney disease with heart failure and stage 1 through stage 4 chronic kidney disease, or unspecified chronic kidney disease; I50.32 Chronic diastolic (congestive) heart failure; J44.0 Chronic obstructive pulmonary disease with (acute) lower respiratory infection; E78.00 Pure hypercholesterolemia, unspecified; I07.1 Rheumatic tricuspid insufficiency; D50.9 Iron deficiency anemia, unspecified; I48.91 Unspecified atrial fibrillation; I27.20 Pulmonary hypertension, unspecified; N18.9 Chronic kidney disease, unspecified; S51.812A Laceration without foreign body of left forearm, initial encounter; G47.00 Insomnia, unspecified; Z91.199 Patient's noncompliance with other medical treatment and regimen due to unspecified reason; Z79.01 Long term (current) use of anticoagulants; Z85.528 Personal history of other malignant neoplasm of kidney; Z51.5 Encounter for palliative care; Z87.442 Personal history of urinary calculi; Z90.5 Acquired absence of kidney; Z99.81 Dependence on supplemental oxygen; X58.XXXA Exposure to other specified factors, initial encounter; Y93.89 Activity, other specified; Y92.89 Other specified places as the place of occurrence of the external cause; Y99.8 Other external cause status
CPT/HCPCS: 36415; 36573; 36600; 71045; 80048; 80053; 80061; 80076; 80202; 80320; 82375; 82805; 83735; 83880; 84100; 84439; 84443; 84484; 85014; 85018; 85025; 86850; 86900; 86920; 93005; 93306; 93970; 94640; 94644; 94660; 99291; A6261; C1725; C1893; J0456; J0696; J1160; J1940; J2930; J3370; J3475; J3490; J7060; J7626; P9016; G0480

== ENCOUNTER 2023-12-13 14:42 | Inpatient (IN) | payer MEDICARE ==
[~2023-12-13] VITALS: Ht 165.1 cm; Wt 83.9 kg
[2023-12-13 14:40] VITALS: RESP 24
[~2023-12-13 14:42] MED LIST changes: +DIGO125T80 MT; +DILT120C88 MT; -METO-539 PO; +PRIM50TA5 PO
[2023-12-13] MEDS: METHYLPREDNISOLONE SOD SUCC 125MG/2ML (ACT-O-VIAL) IV STA (15:00)
[2023-12-13] MEDS: IPRATROPIUM BROMIDE (0.02%) 0.5MG/2.5ML NEB HHN STA (15:10)
[2023-12-13] MEDS: ALBUTEROL (0.083%) 2.5MG/3ML NEB HHN STA (15:11)
[2023-12-13 15:15] VITALS: RESP 21
[2023-12-13 15:18] LABS: HEMATOCRIT. 31.7 % (36.0-48.0); HEMOGLOBIN. 9.4 g/dL (12.0-16.0); MEAN CORPUSCULAR HEMOGLOBIN 25.9 pg (28.0-32.0); MEAN CORPUSCULAR HGB CONC 29.7 g/dL (31.0-37.0); MEAN CORPUSCULAR VOLUME 87.2 fL (81.0-99.0); MEAN PLATELET VOLUME 8.8 fl (7.4-10.4); PLATELET 202 x1000/uL (130-400); RED BLOOD CELL COUNT 3.63 mill/uL (4.2-5.4); RED CELL DISTRIBUTION WIDTH 20.7 % (11.6-14.6)
[2023-12-13 15:19] LABS: DIFFERENTIAL COMMENT 1
[2023-12-13 15:32] LABS: ALANINE AMINOTRANSFERASE 10 IU/L (10-49); ALBUMIN 3.3 g/dL (3.2-4.8); ASPARTATE AMINOTRANSFERASE 24 IU/L (<34); BILIRUBIN TOTAL 0.7 mg/dL (0.1-1.0); CALCIUM 9.1 mg/dL (8.7-10.4); CHLORIDE 101 mEq/L (98-107); CREATININE 0.7 mg/dL (0.6-1.0); GLUCOSE 114 mg/dL (70-105); POTASSIUM 4.2 mEq/L (3.5-5.1); PROTEIN TOTAL 6.1 g/dL (6.0-8.3); SODIUM 145 mEq/L (136-145); TROPONIN I HIGH SENSITIVITY 9 ng/L (3.0-34); UREA NITROGEN BLOOD 15 mg/dL (9-23)
[2023-12-13 15:36] LABS: CARBON DIOXIDE > 40 mEq/L (21-32)
[2023-12-13 15:49] LABS: BG BASE EXCESS 11.7 mmol/L (-2.0-2.0); BG DEOXYHEMOGLOBIN 9.9 % (0.0-5.0); BG FRACTION INSPIRED OXYGEN 100; BG HCO3 ACT 41.6 mmol/L (22.0-26.0); BG METHEMOGLOBIN 0.2 % (0.0-1.5); BG OXYHEMOGLOBIN 88.9 % (94.0-97.0); BG PCO2 94.4 mmHg (35.0-45.0); BG PH 7.262 (7.350-7.450); BG PO2 63.2 mmHg (75.0-100.0); BG SAMPLE SITE RIGHT RADIAL; BG TOTAL HEMOGLOBIN 10.4 g/dL (12.0-18.0); BG VENT MODE MASK - BIPAP
[2023-12-13 15:51] LABS: ANISOCYTOSIS 1+; PLATELET ESTIMATE NORMAL
[2023-12-13] MEDS: FUROSEMIDE 40MG/4ML VIAL IVP ONE (17:25)
[2023-12-13 18:00] VITALS: RESP 36
[2023-12-13 18:48] LABS: INR 0.9; PROTHROMBIN TIME 10.5 sec (9.6-11.0)
[2023-12-13 18:49] LABS: TROPONIN I HIGH SENSITIVITY 10 ng/L (3.0-34)
[2023-12-13 20:02] VITALS: RESP 32
[2023-12-13] MEDS: METHYLPREDNISOLONE SOD SUCC 40MG/ML (ACT-O-VIAL) IV SCH (20:45)
[2023-12-13 21:08] LABS: TROPONIN I HIGH SENSITIVITY 10 ng/L (3.0-34)
[2023-12-14] VITALS (8 sets, daily range): RESP 18–47
[2023-12-14] MEDS: APIXABAN 5 MG TABLET PO SCH (00:49)
[2023-12-14] MEDS: DIGOXIN 125MCG TABLET PO SCH (00:49)
[2023-12-14] MEDS: DILTIAZEM HCL 120MG CAPSULE ER 24HR PO SCH (00:49)
[2023-12-14] MEDS: IPRATROPIUM/ALBUTEROL 0.5-3(2.5)MG/3ML NEB HHN SCH (02:00)
[2023-12-14 03:06] LABS: BG BASE EXCESS 12.6 mmol/L (-2.0-2.0); BG CARBOXYHEMOGLOBIN 0.8 % (0.5-1.5); BG DEOXYHEMOGLOBIN 11.2 % (0.0-5.0); BG FRACTION INSPIRED OXYGEN 100; BG HCO3 ACT 44.5 mmol/L (22.0-26.0); BG METHEMOGLOBIN 0.3 % (0.0-1.5); BG OXYGEN SATURATION 88.7 % (92.0-98.5); BG OXYHEMOGLOBIN 87.7 % (94.0-97.0); BG PO2 60.1 mmHg (75.0-100.0); BG SAMPLE SITE RIGHT RADIAL; BG TOTAL HEMOGLOBIN 10.5 g/dL (12.0-18.0); BG VENT MODE MASK - BIPAP
[2023-12-14 06:09] LABS: MEAN CORPUSCULAR HEMOGLOBIN 25.7 pg (28.0-32.0); MEAN CORPUSCULAR HGB CONC 29.1 g/dL (31.0-37.0); MEAN CORPUSCULAR VOLUME 88.2 fL (81.0-99.0); MEAN PLATELET VOLUME 8.8 fl (7.4-10.4); PLATELET 178 x1000/uL (130-400); RED BLOOD CELL COUNT 3.52 mill/uL (4.2-5.4); RED CELL DISTRIBUTION WIDTH 19.9 % (11.6-14.6)
[2023-12-14 06:15] LABS: DIFFERENTIAL COMMENT 1
[2023-12-14 06:16] LABS: CALCIUM 9.2 mg/dL (8.7-10.4); CHLORIDE 101 mEq/L (98-107); CREATININE 0.9 mg/dL (0.6-1.0); GLUCOSE 127 mg/dL (70-105); POTASSIUM 4.6 mEq/L (3.5-5.1); SODIUM 145 mEq/L (136-145); UREA NITROGEN BLOOD 22 mg/dL (9-23)
[2023-12-14 07:24] LABS: NUCLEATED RED BLOOD CELLS 1 /100 WBC; PLATELET ESTIMATE NORMAL
[2023-12-14 07:51] LABS: CARBON DIOXIDE > 40 mEq/L (21-32)
[2023-12-14 08:08] LABS: BG BASE EXCESS 5.9 mmol/L (-2.0-2.0); BG CARBOXYHEMOGLOBIN 0.6 % (0.5-1.5); BG DEOXYHEMOGLOBIN 0.2 % (0.0-5.0); BG FRACTION INSPIRED OXYGEN 100; BG HCO3 ACT 35.7 mmol/L (22.0-26.0); BG METHEMOGLOBIN 0.3 % (0.0-1.5); BG OXYGEN SATURATION 99.8 % (92.0-98.5); BG OXYHEMOGLOBIN 98.9 % (94.0-97.0); BG PCO2 91.6 mmHg (35.0-45.0); BG PH 7.209 (7.350-7.450); BG PO2 294.3 mmHg (75.0-100.0); BG SAMPLE SITE LEFT RADIAL; BG TOTAL HEMOGLOBIN 9.6 g/dL (12.0-18.0); BG VENT MODE MASK - BIPAP
[2023-12-14] MEDS: PANTOPRAZOLE 40MG DR TABLET PO SCH (10:31)
[2023-12-14] MEDS: PRIMIDONE 50MG TABLET PO SCH (10:31)
[2023-12-14] MEDS: FUROSEMIDE 40MG/4ML VIAL IVP SCH ×2 (10:31→10:32)
[2023-12-14] MEDS: SERTRALINE HCL 50MG TABLET PO SCH (10:32)
[2023-12-14] MEDS: ONDANSETRON HCL 4MG/2ML INJ IV ONE (12:37)
[2023-12-14 13:09] LABS: BG CARBOXYHEMOGLOBIN 0.5 % (0.5-1.5); BG DEOXYHEMOGLOBIN 2.9 % (0.0-5.0); BG FRACTION INSPIRED OXYGEN 40; BG HCO3 ACT 34.9 mmol/L (22.0-26.0); BG METHEMOGLOBIN 0.2 % (0.0-1.5); BG OXYGEN SATURATION 97.1 % (92.0-98.5); BG OXYHEMOGLOBIN 96.4 % (94.0-97.0); BG PCO2 55.5 mmHg (35.0-45.0); BG PH 7.416 (7.350-7.450); BG PO2 83.6 mmHg (75.0-100.0); BG SAMPLE SITE LEFT BRACHIAL; BG TOTAL HEMOGLOBIN 9.7 g/dL (12.0-18.0); BG VENT MODE MASK - BIPAP
[2023-12-14] MEDS: ATORVASTATIN CALCIUM 10MG TABLET PO SCH (21:38)
[2023-12-15] VITALS (8 sets, daily range): BP systolic 127–133; BP diastolic 55–73; PULSE 94–110; RESP 17–24; TEMP 97.5–97.6; O2SAT 16–96
[2023-12-15 05:56] LABS: HEMATOCRIT. 27.6 % (36.0-48.0); HEMOGLOBIN. 8.2 g/dL (12.0-16.0); MEAN CORPUSCULAR HEMOGLOBIN 25.5 pg (28.0-32.0); MEAN CORPUSCULAR HGB CONC 29.7 g/dL (31.0-37.0); MEAN CORPUSCULAR VOLUME 86.1 fL (81.0-99.0); MEAN PLATELET VOLUME 8.6 fl (7.4-10.4); PLATELET 181 x1000/uL (130-400); RED BLOOD CELL COUNT 3.21 mill/uL (4.2-5.4); RED CELL DISTRIBUTION WIDTH 20.4 % (11.6-14.6); WHITE BLOOD COUNT 11.3 x1000/uL (4.5-11.0)
[2023-12-15 06:01] LABS: CALCIUM 8.9 mg/dL (8.7-10.4); CREATININE 1.1 mg/dL (0.6-1.0)
[2023-12-15 06:05] LABS: DIFFERENTIAL COMMENT 1
[2023-12-15 08:02] LABS: PLATELET ESTIMATE NORMAL
[2023-12-15 08:03] LABS: OVALOCYTES 1+
[2023-12-15 08:55] LABS: BG BASE EXCESS 11.9 mmol/L (-2.0-2.0); BG CARBOXYHEMOGLOBIN 0.3 % (0.5-1.5); BG DEOXYHEMOGLOBIN 5.1 % (0.0-5.0); BG FRACTION INSPIRED OXYGEN 36; BG HCO3 ACT 38.8 mmol/L (22.0-26.0); BG METHEMOGLOBIN 0.3 % (0.0-1.5); BG OXYGEN SATURATION 94.9 % (92.0-98.5); BG OXYHEMOGLOBIN 94.3 % (94.0-97.0); BG PCO2 67.3 mmHg (35.0-45.0); BG PH 7.379 (7.350-7.450); BG PO2 76.1 mmHg (75.0-100.0); BG SAMPLE SITE RIGHT RADIAL; BG TOTAL HEMOGLOBIN 9.1 g/dL (12.0-18.0); BG VENT MODE NASAL CANNULA
[2023-12-15] MEDS: IPRATROPIUM/ALBUTEROL 0.5-3(2.5)MG/3ML NEB HHN SCH (09:10)
[2023-12-15] MEDS: DIGOXIN 125MCG TABLET PO SCH (18:03)
[2023-12-15] MEDS: METHYLPREDNISOLONE SOD SUCC 40MG/ML (ACT-O-VIAL) IV SCH (21:06)
[2023-12-16] VITALS (12 sets, daily range): BP systolic 99–150; BP diastolic 41–73; PULSE 83–108; RESP 16–26; TEMP 96–97.8; O2SAT 97
[2023-12-16 07:43] LABS: MEAN CORPUSCULAR HEMOGLOBIN 26.3 pg (28.0-32.0); MEAN CORPUSCULAR HGB CONC 30.8 g/dL (31.0-37.0); MEAN CORPUSCULAR VOLUME 85.2 fL (81.0-99.0); PLATELET 154 x1000/uL (130-400); RED BLOOD CELL COUNT 3.05 mill/uL (4.2-5.4); RED CELL DISTRIBUTION WIDTH 20.2 % (11.6-14.6); WHITE BLOOD COUNT 9.7 x1000/uL (4.5-11.0)
[2023-12-16 07:50] LABS: CHLORIDE 97 mEq/L (98-107); CREATININE 0.9 mg/dL (0.6-1.0); DIGOXIN 0.5 ng/mL (0.8-2.0); GLUCOSE 130 mg/dL (70-105); POTASSIUM 3.7 mEq/L (3.5-5.1); SODIUM 143 mEq/L (136-145); UREA NITROGEN BLOOD 30 mg/dL (9-23)
[2023-12-16 07:53] LABS: CARBON DIOXIDE > 40 mEq/L (21-32)
[2023-12-16] MEDS: FAMOTIDINE 20MG TABLET PO SCH (09:08)
[2023-12-17] VITALS (11 sets, daily range): BP systolic 115–141; BP diastolic 51–64; PULSE 16–114; RESP 16–30; TEMP 97.1–98.7; O2SAT 90–92
[2023-12-17 12:24] LABS: HEMATOCRIT. 26.4 % (36.0-48.0); MEAN CORPUSCULAR HEMOGLOBIN 25.7 pg (28.0-32.0); MEAN CORPUSCULAR HGB CONC 30.3 g/dL (31.0-37.0); MEAN CORPUSCULAR VOLUME 84.7 fL (81.0-99.0); MEAN PLATELET VOLUME 8.6 fl (7.4-10.4); PLATELET 132 x1000/uL (130-400); RED BLOOD CELL COUNT 3.12 mill/uL (4.2-5.4); RED CELL DISTRIBUTION WIDTH 20.7 % (11.6-14.6); WHITE BLOOD COUNT 8.5 x1000/uL (4.5-11.0)
[2023-12-17 12:32] LABS: DIFFERENTIAL COMMENT 1
[2023-12-17] MEDS ORDERED: MED4 MT (12:40)
[2023-12-17] MEDS ORDERED: FURO-151 MT (12:40)
[2023-12-17] MEDS ORDERED: DIGO-34 PO (12:40)
[2023-12-17 12:47] LABS: ALANINE AMINOTRANSFERASE 14 IU/L (10-49); ALBUMIN 3.1 g/dL (3.2-4.8); ASPARTATE AMINOTRANSFERASE 25 IU/L (<34); BILIRUBIN TOTAL 0.8 mg/dL (0.1-1.0); CALCIUM 8.3 mg/dL (8.7-10.4); CHLORIDE 96 mEq/L (98-107); CREATININE 1.1 mg/dL (0.6-1.0); GLUCOSE 150 mg/dL (70-105); POTASSIUM 3.1 mEq/L (3.5-5.1); PROTEIN TOTAL 5.6 g/dL (6.0-8.3); SODIUM 141 mEq/L (136-145); UREA NITROGEN BLOOD 30 mg/dL (9-23)
[2023-12-17 13:05] LABS: CARBON DIOXIDE > 40 mEq/L (21-32)
[2023-12-17 13:18] LABS: PLATELET ESTIMATE NORMAL
[2023-12-17 13:19] LABS: ANISOCYTOSIS 2+; HYPOCHROMASIA 2+
[2023-12-17 13:20] LABS: MICROCYTOSIS 1+
[2023-12-18] VITALS (12 sets, daily range): BP systolic 137–151; BP diastolic 63–76; PULSE 88–104; RESP 16–29; TEMP 96.8–98.1; O2SAT 92
[2023-12-18] MEDS: ACETAMINOPHEN 650MG/20.3ML UDC PO PRN (17:16)
[2023-12-18] MEDS: BENZONATATE 200MG CAPSULE PO NR (17:16)
[2023-12-18] MEDS: GUAIFENESIN-DM 200MG-20MG/10ML UDC PO NR (17:16)
[2023-12-19] VITALS (10 sets, daily range): BP systolic 106–151; BP diastolic 62–75; PULSE 91–106; RESP 17–21; TEMP 96.8–100
[2023-12-19] MEDS: POTASSIUM CHLORIDE 20MEQ TABLET SR PO NR (11:15)
[2023-12-20] VITALS (10 sets, daily range): BP systolic 133–148; BP diastolic 67–89; PULSE 89–101; RESP 16–27; TEMP 97.3–100; O2SAT 96–97
[2023-12-20 07:05] LABS: POTASSIUM 3.2 mEq/L (3.5-5.1)
[2023-12-20] MEDS: BENZONATATE 100MG CAPSULE PO PRN (09:24)
[2023-12-20] MEDS: THROAT LOZENGES-BENZOCAINE/MENTH/CETYLPYRD CL LOZENGES MM PRN (17:56)
[2023-12-20] MEDS: GUAIFENESIN-DM 200MG-20MG/10ML UDC PO NR (17:56)
[2023-12-20] MEDS: POTASSIUM CHLORIDE 20MEQ TABLET SR PO NR (20:39)
[2023-12-20] MEDS: POTASSIUM CHLORIDE 20MEQ/PACKET PO NR (20:56)
[2023-12-21] VITALS (8 sets, daily range): BP systolic 134–158; BP diastolic 53–93; PULSE 81–101; RESP 17–22; TEMP 96.8–98.4; O2SAT 98
[2023-12-21] MEDS: GUAIFENESIN-DM 200MG-20MG/10ML UDC PO PRN (13:52)
[2023-12-21] MEDS: IPRATROPIUM/ALBUTEROL 0.5-3(2.5)MG/3ML NEB HHN PRN (14:32)
[2023-12-22] VITALS: BP 149/77; PULSE 98; RESP 20; TEMP 98.2
[2023-12-22 04:00] VITALS: BP 120/61; PULSE 99; RESP 18; TEMP 98.2
[2023-12-22 08:00] VITALS: BP 130/86; PULSE 89; RESP 18; TEMP 98.6
[2023-12-22 16:00] VITALS: BP 124/79; PULSE 85; RESP 18; TEMP 98.4
[2023-12-22 20:00] VITALS: BP 156/95; PULSE 100; RESP 20; TEMP 97.9
[2023-12-23] VITALS (7 sets, daily range): BP systolic 113–151; BP diastolic 65–93; PULSE 68–106; RESP 18–20; TEMP 97.2–97.5
[2023-12-24] VITALS (8 sets, daily range): BP systolic 109–135; BP diastolic 58–82; PULSE 89–100; RESP 18–21; TEMP 96.7–97.8
[2023-12-24] MEDS: METHYLPREDNISOLONE SOD SUCC 40MG/ML (ACT-O-VIAL) IV SCH (09:10)
[2023-12-25] VITALS (7 sets, daily range): BP systolic 111–142; BP diastolic 65–88; PULSE 82–98; RESP 18–29; TEMP 97–97.9
[2023-12-26] VITALS (8 sets, daily range): BP systolic 112–137; BP diastolic 64–91; PULSE 76–97; RESP 18–28; TEMP 97.5–100; O2SAT 98
[2023-12-26 07:08] LABS: HEMATOCRIT 25.5 % (36.0-48.0); MEAN CORPUSCULAR HEMOGLOBIN 26.9 pg (28.0-32.0); MEAN CORPUSCULAR HGB CONC 31.4 g/dL (31.0-37.0); MEAN CORPUSCULAR VOLUME 85.5 fL (81.0-99.0); PLATELET 172 x1000/uL (130-400); RED BLOOD CELL COUNT 2.98 mill/uL (4.2-5.4); RED CELL DISTRIBUTION WIDTH 20.2 % (11.6-14.6); WHITE BLOOD COUNT 14.8 x1000/uL (4.5-11.0)
[2023-12-26 07:26] LABS: CALCIUM 8.3 mg/dL (8.7-10.4); CHLORIDE 89 mEq/L (98-107); CREATININE 1.1 mg/dL (0.6-1.0); DIGOXIN 1.8 ng/mL (0.8-2.0); GLUCOSE 79 mg/dL (70-105); POTASSIUM 3.7 mEq/L (3.5-5.1); SODIUM 140 mEq/L (136-145); UREA NITROGEN BLOOD 49 mg/dL (9-23)
[2023-12-26 08:15] LABS: CARBON DIOXIDE > 40 mEq/L (21-32)
[2023-12-26] MEDS ORDERED: DIGOXIN 125MCG TABLET PO SCH (18:00)
== END 2023-12-26 18:38 | disposition hospice, home (50) | DRG 291 ==
LOC: ER 14:42 → EDBEDREQ 14:52 → MICUSO 16:55 → EDBEDREQ 16:57 → EDBEDREQTM 16:57 → EDBEDREQSVC 12-14 07:39 → 7EST 12-15 15:09 → 7WST 12-19 16:38
PROVIDERS: ADMIT Internal Medicine; ATTEND Internal Medicine
PROC: 5A09357 Assistance with Respiratory Ventilation, Less than 24 Consecutive Hours, Continuous Positive Airway Pressure (ICD-10-PCS; principal; 2023-12-13)
PROC: 5A09357 Assistance with Respiratory Ventilation, Less than 24 Consecutive Hours, Continuous Positive Airway Pressure (ICD-10-PCS; 2023-12-14)
PROC: 5A09357 Assistance with Respiratory Ventilation, Less than 24 Consecutive Hours, Continuous Positive Airway Pressure (ICD-10-PCS; 2023-12-15)
PROC: 5A09357 Assistance with Respiratory Ventilation, Less than 24 Consecutive Hours, Continuous Positive Airway Pressure (ICD-10-PCS; 2023-12-16)
PROC: 5A09357 Assistance with Respiratory Ventilation, Less than 24 Consecutive Hours, Continuous Positive Airway Pressure (ICD-10-PCS; 2023-12-17)
PROC: 5A09357 Assistance with Respiratory Ventilation, Less than 24 Consecutive Hours, Continuous Positive Airway Pressure (ICD-10-PCS; 2023-12-18)
PROC: 5A09357 Assistance with Respiratory Ventilation, Less than 24 Consecutive Hours, Continuous Positive Airway Pressure (ICD-10-PCS; 2023-12-19)
PROC: 5A09357 Assistance with Respiratory Ventilation, Less than 24 Consecutive Hours, Continuous Positive Airway Pressure (ICD-10-PCS; 2023-12-20)
PROC: 5A09357 Assistance with Respiratory Ventilation, Less than 24 Consecutive Hours, Continuous Positive Airway Pressure (ICD-10-PCS; 2023-12-21)
PROC: 5A09357 Assistance with Respiratory Ventilation, Less than 24 Consecutive Hours, Continuous Positive Airway Pressure (ICD-10-PCS; 2023-12-24)
PROC: 5A09357 Assistance with Respiratory Ventilation, Less than 24 Consecutive Hours, Continuous Positive Airway Pressure (ICD-10-PCS; 2023-12-25)
DX: I13.0 Hypertensive heart and chronic kidney disease with heart failure and stage 1 through stage 4 chronic kidney disease, or unspecified chronic kidney disease (principal); I50.43 Acute on chronic combined systolic (congestive) and diastolic (congestive) heart failure; J96.21 Acute and chronic respiratory failure with hypoxia; J96.22 Acute and chronic respiratory failure with hypercapnia; E46 Unspecified protein-calorie malnutrition; E87.4 Mixed disorder of acid-base balance; J44.1 Chronic obstructive pulmonary disease with (acute) exacerbation; C64.9 Malignant neoplasm of unspecified kidney, except renal pelvis; I48.20 Chronic atrial fibrillation, unspecified; Z99.81 Dependence on supplemental oxygen; Z79.01 Long term (current) use of anticoagulants; Z68.30 Body mass index [BMI] 30.0-30.9, adult; E66.9 Obesity, unspecified; F17.210 Nicotine dependence, cigarettes, uncomplicated; N18.1 Chronic kidney disease, stage 1; I48.0 Paroxysmal atrial fibrillation; E87.6 Hypokalemia; D72.829 Elevated white blood cell count, unspecified; Z90.5 Acquired absence of kidney; Z85.528 Personal history of other malignant neoplasm of kidney; Z82.49 Family history of ischemic heart disease and other diseases of the circulatory system
CPT/HCPCS: 36415; 36600; 71045; 80048; 80053; 80162; 82375; 82805; 82962; 83880; 84132; 84145; 84484; 85025; 85027; 93005; 94640; 94660; 97162; 97165; 99291; A6261; J1940; J2405; J2920; J2930

== ENCOUNTER 2023-12-28 02:43 | Inpatient (IN) | payer MEDICARE, OTHER ==
[2023-12-28] VITALS (28 sets, daily range): BP systolic 121–150; BP diastolic 56–99; PULSE 84–103; RESP 9–39; TEMP 97–97.6; O2SAT 95
[~2023-12-28] VITALS: Ht 165.1 cm; Wt 78.5 kg
[~2023-12-28 02:43] MED LIST changes: +DIGO-34 PO; +FURO-151 MT; +MED4 MT
[2023-12-28 03:09] LABS: HEMATOCRIT. 27.5 % (36.0-48.0); HEMOGLOBIN. 8.3 g/dL (12.0-16.0); MEAN CORPUSCULAR HEMOGLOBIN 26.6 pg (28.0-32.0); MEAN CORPUSCULAR HGB CONC 30.3 g/dL (31.0-37.0); MEAN CORPUSCULAR VOLUME 87.7 fL (81.0-99.0); MEAN PLATELET VOLUME 8.7 fl (7.4-10.4); PLATELET 200 x1000/uL (130-400); RED BLOOD CELL COUNT 3.14 mill/uL (4.2-5.4); RED CELL DISTRIBUTION WIDTH 22.5 % (11.6-14.6); WHITE BLOOD COUNT 21.1 x1000/uL (4.5-11.0)
[2023-12-28 03:15] LABS: DIFFERENTIAL COMMENT 1
[2023-12-28 03:19] LABS: ALANINE AMINOTRANSFERASE 30 IU/L (10-49); ALBUMIN 3.4 g/dL (3.2-4.8); ASPARTATE AMINOTRANSFERASE 24 IU/L (<34); BILIRUBIN TOTAL 1.8 mg/dL (0.1-1.0); CALCIUM 8.9 mg/dL (8.7-10.4); CHLORIDE 94 mEq/L (98-107); GLUCOSE 101 mg/dL (70-105); PROTEIN TOTAL 5.4 g/dL (6.0-8.3); SODIUM 142 mEq/L (136-145); UREA NITROGEN BLOOD 45 mg/dL (9-23)
[2023-12-28 03:22] LABS: CARBON DIOXIDE > 40 mEq/L (21-32); TROPONIN I HIGH SENSITIVITY 64 ng/L (3.0-34)
[2023-12-28 03:34] LABS: BG BASE EXCESS 13.9 mmol/L (-2.0-2.0); BG CARBOXYHEMOGLOBIN 1.2 % (0.5-1.5); BG DEOXYHEMOGLOBIN 1.6 % (0.0-5.0); BG FRACTION INSPIRED OXYGEN 40; BG HCO3 ACT 38.4 mmol/L (22.0-26.0); BG METHEMOGLOBIN 0.2 % (0.0-1.5); BG OXYGEN SATURATION 98.4 % (92.0-98.5); BG PCO2 49.4 mmHg (35.0-45.0); BG PH 7.509 (7.350-7.450); BG PO2 117.5 mmHg (75.0-100.0); BG SAMPLE SITE RIGHT BRACHIAL; BG TOTAL HEMOGLOBIN 8.8 g/dL (12.0-18.0); BG VENT MODE MASK - BIPAP
[2023-12-28] MEDS: MAGNESIUM 2 G PREMIX 50 ML IV ONE (03:43)
[2023-12-28] MEDS: METHYLPREDNISOLONE SOD SUCC 125MG/2ML (ACT-O-VIAL) IV STA (03:43)
[2023-12-28] MEDS: IPRATROPIUM BROMIDE (0.02%) 0.5MG/2.5ML NEB HHN STA (04:13)
[2023-12-28] MEDS: ALBUTEROL (0.083%) 2.5MG/3ML NEB HHN SCH (04:13)
[2023-12-28 04:39] LABS: ANISOCYTOSIS 1+; PLATELET ESTIMATE NORMAL
[2023-12-28 05:35] LABS: TROPONIN I HIGH SENSITIVITY 61 ng/L (3.0-34)
[2023-12-28] MEDS: METHYLPREDNISOLONE SOD SUCC 40MG/ML (ACT-O-VIAL) IV SCH (12:00)
[2023-12-28] MEDS: FUROSEMIDE 40MG/4ML VIAL IVP SCH (15:00)
[2023-12-28] MEDS: DILTIAZEM HCL 60MG TABLET PO SCH (15:01)
[2023-12-28] MEDS: ENOXAPARIN 80MG/0.8ML SYR SUBCUT NR (15:15)
[2023-12-28] MEDS: IPRATROPIUM/ALBUTEROL 0.5-3(2.5)MG/3ML NEB HHN SCH (20:36)
[2023-12-28] MEDS ORDERED: APIXABAN 5 MG TABLET PO SCH (22:00)
[2023-12-28] MEDS: PIPERACILLIN/TAZO 3.375G/50ML 50 ML IV SCH (23:19)
[2023-12-29] VITALS (19 sets, daily range): BP systolic 113–166; BP diastolic 54–137; PULSE 78–95; RESP 13–35; TEMP 97–97.7; O2SAT 97–100
[2023-12-29] MEDS: IPRATROPIUM/ALBUTEROL 0.5-3(2.5)MG/3ML NEB HHN SCH (00:10)
[2023-12-29 06:21] LABS: HEMATOCRIT. 23.9 % (36.0-48.0); HEMOGLOBIN. 7.2 g/dL (12.0-16.0); MEAN CORPUSCULAR HEMOGLOBIN 27.2 pg (28.0-32.0); MEAN CORPUSCULAR HGB CONC 30.1 g/dL (31.0-37.0); MEAN CORPUSCULAR VOLUME 90.3 fL (81.0-99.0); MEAN PLATELET VOLUME 8.9 fl (7.4-10.4); PLATELET 142 x1000/uL (130-400); RED BLOOD CELL COUNT 2.65 mill/uL (4.2-5.4); RED CELL DISTRIBUTION WIDTH 24.5 % (11.6-14.6); WHITE BLOOD COUNT 12.3 x1000/uL (4.5-11.0)
[2023-12-29 06:25] LABS: PROTHROMBIN TIME 10.8 sec (9.6-11.0)
[2023-12-29 06:37] LABS: CALCIUM 8.7 mg/dL (8.7-10.4); CREATININE 1.1 mg/dL (0.6-1.0); DIGOXIN 1.5 ng/mL (0.8-2.0); POTASSIUM 3.4 mEq/L (3.5-5.1)
[2023-12-29 06:52] LABS: DIFFERENTIAL COMMENT 1
[2023-12-29] MEDS: ENOXAPARIN 80MG/0.8ML SYR SUBCUT SCH (09:06)
[2023-12-29] MEDS: SERTRALINE HCL 50MG TABLET PO SCH (09:07)
[2023-12-29] MEDS: FUROSEMIDE 40MG TABLET PO SCH (09:07)
[2023-12-29] MEDS ORDERED: NALOXONE HCL 0.4MG/ML VIAL IV PRN (10:15)
[2023-12-29] MEDS: HYDROCODONE/ACETAMINOPHEN 5/325MG TABLET PO PRN (10:45)
[2023-12-29] MEDS: POTASSIUM CHLORIDE 20MEQ TABLET SR PO NR (10:56)
[2023-12-29 11:16] LABS: BG BASE EXCESS 13.3 mmol/L (-2.0-2.0); BG CARBOXYHEMOGLOBIN 0.3 % (0.5-1.5); BG DEOXYHEMOGLOBIN 2.6 % (0.0-5.0); BG FRACTION INSPIRED OXYGEN 36; BG HCO3 ACT 38.4 mmol/L (22.0-26.0); BG OXYGEN SATURATION 97.4 % (92.0-98.5); BG OXYHEMOGLOBIN 96.1 % (94.0-97.0); BG PO2 103.7 mmHg (75.0-100.0); BG SAMPLE SITE LEFT RADIAL; BG TOTAL HEMOGLOBIN 8.2 g/dL (12.0-18.0); BG VENT MODE NASAL CANNULA
[2023-12-29] MEDS: METHYLPREDNISOLONE SOD SUCC 40MG/ML (ACT-O-VIAL) IV SCH (12:00)
[2023-12-29] MEDS: BUDESONIDE 0.5MG/2ML NEB HHN SCH (14:40)
[2023-12-29 14:43] LABS: ANISOCYTOSIS 3+; PLATELET ESTIMATE NORMAL
[2023-12-29] MEDS: ATORVASTATIN CALCIUM 10MG TABLET PO SCH (20:36)
[2023-12-29] MEDS: THROAT LOZENGES-BENZOCAINE/MENTH/CETYLPYRD CL LOZENGES MM PRN (22:19)
[2023-12-30] VITALS (19 sets, daily range): BP systolic 110–143; BP diastolic 58–111; PULSE 88–104; RESP 16–34; TEMP 97–98.1; O2SAT 99
[2023-12-30] MEDS ORDERED: LIDOCAINE HCL 1% 10 MG/ML 10ML VIAL ONE (10:03)
[2023-12-31] VITALS (16 sets, daily range): BP systolic 113–144; BP diastolic 47–69; PULSE 88–107; RESP 14–30; TEMP 97.1–99; O2SAT 97–100
[2024-01-01] VITALS (15 sets, daily range): BP systolic 111–148; BP diastolic 45–79; PULSE 78–99; RESP 13–28; TEMP 97.4–98.4; O2SAT 98–100
[2024-01-01 05:59] LABS: CALCIUM 8.5 mg/dL (8.7-10.4); CARBON DIOXIDE 38 mEq/L (21-32); CHLORIDE 92 mEq/L (98-107); GLUCOSE 145 mg/dL (70-105); PHOSPHORUS 4.5 mg/dL (2.5-4.9); SODIUM 135 mEq/L (136-145); UREA NITROGEN BLOOD 62 mg/dL (9-23)
[2024-01-01 06:06] LABS: CREATININE 1.6 mg/dL (0.6-1.0)
[2024-01-01 06:42] LABS: MEAN CORPUSCULAR HEMOGLOBIN 27.6 pg (28.0-32.0); MEAN CORPUSCULAR HGB CONC 31.2 g/dL (31.0-37.0); MEAN CORPUSCULAR VOLUME 88.6 fL (81.0-99.0); MEAN PLATELET VOLUME 8.9 fl (7.4-10.4); PLATELET 94 x1000/uL (130-400); RED BLOOD CELL COUNT 2.14 mill/uL (4.2-5.4); RED CELL DISTRIBUTION WIDTH 23.8 % (11.6-14.6)
[2024-01-01 09:05] LABS: DIFFERENTIAL COMMENT 1
[2024-01-01 09:09] LABS: HEMOGLOBIN. 5.9 g/dL (12.0-16.0)
[2024-01-01 09:45] LABS: BG BASE EXCESS 9.4 mmol/L (-2.0-2.0); BG CARBOXYHEMOGLOBIN 0.4 % (0.5-1.5); BG DEOXYHEMOGLOBIN 6.6 % (0.0-5.0); BG FRACTION INSPIRED OXYGEN 36; BG HCO3 ACT 34.1 mmol/L (22.0-26.0); BG METHEMOGLOBIN 0.2 % (0.0-1.5); BG OXYGEN SATURATION 93.4 % (92.0-98.5); BG OXYHEMOGLOBIN 92.8 % (94.0-97.0); BG PCO2 49.4 mmHg (35.0-45.0); BG PH 7.457 (7.350-7.450); BG PO2 67.9 mmHg (75.0-100.0); BG SAMPLE SITE RIGHT RADIAL
[2024-01-01] MEDS ORDERED: POTASSIUM CHLORIDE 40 MEQ in DEXT 5% WATER 250 ML IV ONE (10:30)
[2024-01-01] MEDS: KCL 20MEQ/100ML X 2 FOR TOTAL KCL 40MEQ/200ML IV SCH (13:33)
[2024-01-01 16:28] LABS: ANISOCYTOSIS 2+; PLATELET ESTIMATE DECREASED
[2024-01-02] VITALS (15 sets, daily range): BP systolic 117–153; BP diastolic 35–66; PULSE 80–93; RESP 17–20; TEMP 96.5–98.6; O2SAT 98
[2024-01-02 06:54] LABS: HEMATOCRIT. 21.5 % (36.0-48.0); MEAN CORPUSCULAR HGB CONC 32.4 g/dL (31.0-37.0); MEAN CORPUSCULAR VOLUME 86.4 fL (81.0-99.0); PLATELET 77 x1000/uL (130-400); RED BLOOD CELL COUNT 2.49 mill/uL (4.2-5.4); RED CELL DISTRIBUTION WIDTH 21.3 % (11.6-14.6); WHITE BLOOD COUNT 9.3 x1000/uL (4.5-11.0)
[2024-01-02 08:31] LABS: DIFFERENTIAL COMMENT 1
[2024-01-02 09:26] LABS: CALCIUM 8.5 mg/dL (8.7-10.4); CREATININE 1.7 mg/dL (0.6-1.0); POTASSIUM 3.1 mEq/L (3.5-5.1)
[2024-01-02 22:12] LABS: NUCLEATED RED BLOOD CELLS 2 /100 WBC; PLATELET ESTIMATE DECREASED
[2024-01-02 22:13] LABS: ANISOCYTOSIS 2+
[2024-01-03] VITALS (12 sets, daily range): BP systolic 133–158; BP diastolic 50–72; PULSE 60–101; RESP 18–22; TEMP 96.9–98.6; O2SAT 97–99
[2024-01-03 01:21] LABS: HEMATOCRIT. 24.8 % (36.0-48.0); HEMOGLOBIN. 7.8 g/dL (12.0-16.0); MEAN CORPUSCULAR HEMOGLOBIN 28.2 pg (28.0-32.0); MEAN CORPUSCULAR HGB CONC 31.6 g/dL (31.0-37.0); MEAN CORPUSCULAR VOLUME 89.3 fL (81.0-99.0); MEAN PLATELET VOLUME 8.6 fl (7.4-10.4); PLATELET 66 x1000/uL (130-400); RED BLOOD CELL COUNT 2.77 mill/uL (4.2-5.4); RED CELL DISTRIBUTION WIDTH 19.4 % (11.6-14.6)
[2024-01-03 01:22] LABS: DIFFERENTIAL COMMENT 1
[2024-01-03 01:27] LABS: CREATININE 1.6 mg/dL (0.6-1.0); POTASSIUM 3.5 mEq/L (3.5-5.1)
[2024-01-03 02:57] LABS: ANISOCYTOSIS 2+; NUCLEATED RED BLOOD CELLS 1 /100 WBC; PLATELET ESTIMATE DECREASED
[2024-01-03] MEDS: PREDNISONE 20MG TABLET PO SCH (17:05)
[2024-01-04] VITALS (11 sets, daily range): BP systolic 98–161; BP diastolic 42–71; PULSE 81–103; RESP 18–22; TEMP 97–98.2; O2SAT 97–99
[2024-01-04] MEDS: PREDNISONE 10MG TABLET PO SCH (17:39)
[2024-01-04] MEDS: DIGOXIN 125MCG TABLET PO SCH (17:40)
[2024-01-05] VITALS (11 sets, daily range): BP systolic 102–136; BP diastolic 54–80; PULSE 82–108; RESP 18–22; TEMP 97–98.7; O2SAT 97–99
[2024-01-05] MEDS: POLYVINYL ALCOHOL OPHTH DROPS 15ML BOTHEYE PRN (00:19)
[2024-01-05 12:06] LABS: CALCIUM 8.4 mg/dL (8.7-10.4); CARBON DIOXIDE 37 mEq/L (21-32); CHLORIDE 99 mEq/L (98-107); GLUCOSE 99 mg/dL (70-105); POTASSIUM 3.5 mEq/L (3.5-5.1); SODIUM 141 mEq/L (136-145); UREA NITROGEN BLOOD 38 mg/dL (9-23)
[2024-01-05] MEDS: ACETAMINOPHEN 325MG TABLET PO PRN (13:09)
[2024-01-06] VITALS (13 sets, daily range): BP systolic 113–140; BP diastolic 50–89; PULSE 80–102; RESP 18–22; TEMP 97–98.6; O2SAT 99
[2024-01-06 06:10] LABS: HEMATOCRIT. 23.9 % (36.0-48.0); HEMOGLOBIN. 7.5 g/dL (12.0-16.0); MEAN CORPUSCULAR HEMOGLOBIN 28.2 pg (28.0-32.0); MEAN CORPUSCULAR HGB CONC 31.5 g/dL (31.0-37.0); MEAN CORPUSCULAR VOLUME 89.6 fL (81.0-99.0); MEAN PLATELET VOLUME 8.8 fl (7.4-10.4); RED BLOOD CELL COUNT 2.66 mill/uL (4.2-5.4); RED CELL DISTRIBUTION WIDTH 19.5 % (11.6-14.6); WHITE BLOOD COUNT 10.2 x1000/uL (4.5-11.0)
[2024-01-06 06:33] LABS: CALCIUM 8.1 mg/dL (8.7-10.4); CARBON DIOXIDE 39 mEq/L (21-32); CHLORIDE 98 mEq/L (98-107); CREATININE 0.8 mg/dL (0.6-1.0); GLUCOSE 84 mg/dL (70-105); PHOSPHORUS 2.2 mg/dL (2.5-4.9); POTASSIUM 3.6 mEq/L (3.5-5.1); SODIUM 139 mEq/L (136-145); UREA NITROGEN BLOOD 35 mg/dL (9-23)
[2024-01-06 06:59] LABS: DIFFERENTIAL COMMENT 1
[2024-01-06 07:04] LABS: PLATELET 45 x1000/uL (130-400)
[2024-01-06 11:45] LABS: ANISOCYTOSIS 2+; PLATELET ESTIMATE MARKEDLY DECREASED
[2024-01-06] MEDS: HYDROCODONE/ACETAMINOPHEN 5/325MG TABLET PO PRN (15:21)
[2024-01-07] VITALS (12 sets, daily range): BP systolic 120–127; BP diastolic 48–62; PULSE 76–96; RESP 16–20; TEMP 97.6–98.2; O2SAT 98–99
[2024-01-07 07:22] LABS: HEMATOCRIT. 22.6 % (36.0-48.0); HEMOGLOBIN. 7.2 g/dL (12.0-16.0); MEAN CORPUSCULAR HEMOGLOBIN 28.9 pg (28.0-32.0); MEAN CORPUSCULAR VOLUME 90.5 fL (81.0-99.0); MEAN PLATELET VOLUME 8.7 fl (7.4-10.4); PLATELET 51 x1000/uL (130-400); RED CELL DISTRIBUTION WIDTH 19.6 % (11.6-14.6); WHITE BLOOD COUNT 8.5 x1000/uL (4.5-11.0)
[2024-01-07 07:32] LABS: DIFFERENTIAL COMMENT 1; INR 0.9; PROTHROMBIN TIME 10.1 sec (9.6-11.0)
[2024-01-07 07:37] LABS: CALCIUM 7.9 mg/dL (8.7-10.4); CARBON DIOXIDE 38 mEq/L (21-32); CHLORIDE 99 mEq/L (98-107); CREATININE 0.7 mg/dL (0.6-1.0); GLUCOSE 75 mg/dL (70-105); POTASSIUM 3.9 mEq/L (3.5-5.1); SODIUM 140 mEq/L (136-145); UREA NITROGEN BLOOD 32 mg/dL (9-23)
[2024-01-07 11:14] LABS: NUCLEATED RED BLOOD CELLS 1 /100 WBC
[2024-01-07 11:15] LABS: ANISOCYTOSIS 2+; PLATELET ESTIMATE DECREASED
[2024-01-08] VITALS: BP 127/55; PULSE 81; RESP 19; RESP 20; TEMP 97.5; TEMP 98.7
[2024-01-08 04:00] VITALS: BP 139/52; PULSE 87; RESP 19; TEMP 97.5
[2024-01-08 08:00] VITALS: BP 98/59; PULSE 83; RESP 18; TEMP 97
[2024-01-08 12:00] VITALS: BP 125/67; PULSE 86; RESP 16; TEMP 97.2
== END 2024-01-08 14:26 | disposition home health service (06) | DRG 291 ==
LOC: ER 03:31 → EDBEDREQ 05:07 → EDBEDREQTM 05:07 → 5EST 08:41 → 8WST 01-01 11:39
PROVIDERS: ADMIT Internal Medicine; ATTEND Internal Medicine
PROC: 5A09357 Assistance with Respiratory Ventilation, Less than 24 Consecutive Hours, Continuous Positive Airway Pressure (ICD-10-PCS; 2023-12-28)
PROC: 05HM33Z Insertion of Infusion Device into Right Internal Jugular Vein, Percutaneous Approach (ICD-10-PCS; principal; 2023-12-30)
PROC: B543ZZA Ultrasonography of Right Jugular Veins, Guidance (ICD-10-PCS; 2023-12-30)
PROC: 5A09357 Assistance with Respiratory Ventilation, Less than 24 Consecutive Hours, Continuous Positive Airway Pressure (ICD-10-PCS; 2023-12-30)
PROC: 30233N1 Transfusion of Nonautologous Red Blood Cells into Peripheral Vein, Percutaneous Approach (ICD-10-PCS; 2024-01-01)
DX: I13.0 Hypertensive heart and chronic kidney disease with heart failure and stage 1 through stage 4 chronic kidney disease, or unspecified chronic kidney disease (principal); I50.33 Acute on chronic diastolic (congestive) heart failure; J96.21 Acute and chronic respiratory failure with hypoxia; J96.22 Acute and chronic respiratory failure with hypercapnia; I48.20 Chronic atrial fibrillation, unspecified; J44.1 Chronic obstructive pulmonary disease with (acute) exacerbation; E46 Unspecified protein-calorie malnutrition; E87.4 Mixed disorder of acid-base balance; N17.9 Acute kidney failure, unspecified; Z20.822 Contact with and (suspected) exposure to COVID-19; D72.829 Elevated white blood cell count, unspecified; I16.0 Hypertensive urgency; E87.6 Hypokalemia; N18.1 Chronic kidney disease, stage 1; D64.9 Anemia, unspecified; D69.6 Thrombocytopenia, unspecified; Z99.81 Dependence on supplemental oxygen; Z79.01 Long term (current) use of anticoagulants; Z90.5 Acquired absence of kidney; Z85.528 Personal history of other malignant neoplasm of kidney; Z68.28 Body mass index [BMI] 28.0-28.9, adult
CPT/HCPCS: 36415; 36573; 36600; 71045; 80048; 80053; 80162; 82310; 82375; 82805; 83605; 83735; 83880; 84100; 84145; 84484; 85025; 85379; 85384; 86850; 86900; 86920; 87426; 87804; 93005; 93970; 94640; 94660; 97162; 99291; A6261; C1725; J1650; J1940; J2543; J2920; J2930; J3475; J3480; J3490; J7512; J7626; P9016

== ENCOUNTER 2024-04-06 18:32 | Inpatient (IN) | payer MEDICARE, OTHER ==
[~2024-04-06] VITALS: Ht 152.4 cm; Wt 78.0 kg
[~2024-04-06 18:32] MED LIST changes: -DIGO-34 PO; -MED4 MT
[2024-04-06 19:47] LABS: DIFFERENTIAL COMMENT 1; HEMATOCRIT. 32.2 % (36.0-48.0); HEMOGLOBIN. 9.8 g/dL (12.0-16.0); MEAN CORPUSCULAR HEMOGLOBIN 28.9 pg (28.0-32.0); MEAN CORPUSCULAR HGB CONC 30.4 g/dL (31.0-37.0); MEAN CORPUSCULAR VOLUME 95.2 fL (81.0-99.0); MEAN PLATELET VOLUME 8.6 fl (7.4-10.4); PLATELET 193 x1000/uL (130-400); RED BLOOD CELL COUNT 3.38 mill/uL (4.2-5.4); RED CELL DISTRIBUTION WIDTH 18.2 % (11.6-14.6); WHITE BLOOD COUNT 8.7 x1000/uL (4.5-11.0)
[2024-04-06 19:54] LABS: CHLORIDE 99 mEq/L (98-107); POTASSIUM 3.3 mEq/L (3.5-5.1); SODIUM 142 mEq/L (136-145)
[2024-04-06 19:55] LABS: CARBON DIOXIDE 39 mEq/L (21-32)
[2024-04-06 19:56] LABS: CALCIUM 8.8 mg/dL (8.7-10.4)
[2024-04-06 20:00] LABS: CREATININE 0.7 mg/dL (0.6-1.0); GLUCOSE 64 mg/dL (70-105)
[2024-04-06 20:01] LABS: UREA NITROGEN BLOOD 19 mg/dL (9-23)
[2024-04-06 20:02] LABS: ALANINE AMINOTRANSFERASE < 7 IU/L (10-49); ASPARTATE AMINOTRANSFERASE 13 IU/L (<34); BILIRUBIN DIRECT 0.4 mg/dL (<=3.0)
[2024-04-06 20:03] LABS: BILIRUBIN TOTAL 0.9 mg/dL (0.1-1.0); PROTEIN TOTAL 5.8 g/dL (6.0-8.3)
[2024-04-06 20:34] LABS: PLATELET ESTIMATE NORMAL
[2024-04-06 20:35] LABS: ANISOCYTOSIS 1+
[2024-04-06] MEDS: SODIUM CHL 0.9% + KCL 20MEQ/L 1,000 ML IV SCH (20:57)
[2024-04-06] MEDS: CEFTRIAXONE 1GM/50ML 50 ML IV SCH (21:44)
[2024-04-06] MEDS: DEXTROSE 50% WATER 50ML SYRINGE IV NR (21:44)
[2024-04-06] MEDS ORDERED: CLONIDINE 0.1MG TABLET PO PRN (22:45)
[2024-04-06] MEDS ORDERED: MAGNESIUM/ALUMINUM HYDROXIDE/SIMETHICONE 30ML UDC PO PRN (22:45)
[2024-04-06] MEDS ORDERED: DEXTROSE 50% WATER 50ML SYRINGE IV PRN (22:45)
[2024-04-06] MEDS ORDERED: NALOXONE HCL 0.4MG/ML VIAL IV PRN (23:00)
[2024-04-06] MEDS: DEXT 5%/0.45% NACL 1000ML 1,000 ML IV SCH (23:00)
[2024-04-06 23:18] VITALS: BP 132/76; PULSE 80; RESP 18; TEMP 98.6
[2024-04-07] VITALS (7 sets, daily range): BP systolic 100–152; BP diastolic 55–86; PULSE 70–96; RESP 19–22; TEMP 96.8–98.8
[2024-04-07 08:14] LABS: HEMATOCRIT. 35.6 % (36.0-48.0); HEMOGLOBIN. 10.7 g/dL (12.0-16.0); MEAN CORPUSCULAR HEMOGLOBIN 28.5 pg (28.0-32.0); MEAN CORPUSCULAR HGB CONC 29.9 g/dL (31.0-37.0); MEAN CORPUSCULAR VOLUME 95.3 fL (81.0-99.0); MEAN PLATELET VOLUME 8.8 fl (7.4-10.4); PLATELET 187 x1000/uL (130-400); RED BLOOD CELL COUNT 3.73 mill/uL (4.2-5.4); RED CELL DISTRIBUTION WIDTH 18.4 % (11.6-14.6)
[2024-04-07 08:18] LABS: DIFFERENTIAL COMMENT 1
[2024-04-07] MEDS ORDERED: ENOXAPARIN 30MG/0.3ML SYR SUBCUT SCH (09:00)
[2024-04-07] MEDS: ENOXAPARIN 40MG/0.4ML SYR SUBCUT SCH (11:17)
[2024-04-07 13:11] LABS: CHLORIDE 99 mEq/L (98-107)
[2024-04-07 13:12] LABS: CARBON DIOXIDE 39 mEq/L (21-32); POTASSIUM 3.7 mEq/L (3.5-5.1); SODIUM 142 mEq/L (136-145)
[2024-04-07 13:13] LABS: CALCIUM 8.8 mg/dL (8.7-10.4); INR 1.1; PROTHROMBIN TIME 11.9 sec (9.6-11.0)
[2024-04-07 13:17] LABS: CREATININE 0.8 mg/dL (0.6-1.0); GLUCOSE 72 mg/dL (70-105)
[2024-04-07 13:18] LABS: UREA NITROGEN BLOOD 21 mg/dL (9-23)
[2024-04-07 13:19] LABS: ALANINE AMINOTRANSFERASE < 7 IU/L (10-49); ALBUMIN 2.8 g/dL (3.2-4.8); ASPARTATE AMINOTRANSFERASE 12 IU/L (<34)
[2024-04-07 13:20] LABS: BILIRUBIN DIRECT 0.3 mg/dL (<=3.0); BILIRUBIN TOTAL 0.5 mg/dL (0.1-1.0); PHOSPHORUS 2.8 mg/dL (2.5-4.9); PROTEIN TOTAL 5.5 g/dL (6.0-8.3)
[2024-04-07 13:37] LABS: TROPONIN I HIGH SENSITIVITY 42 ng/L (3.0-34)
[2024-04-07] MEDS: MULTIVITAMINS,THER W-MINERALS TABLET PO SCH (18:16)
[2024-04-07] MEDS: CEFTRIAXONE 1GM/50ML 50 ML IV SCH (18:18)
[2024-04-07 18:44] LABS: PLATELET ESTIMATE NORMAL
[2024-04-08] VITALS: BP 129/60; PULSE 92; RESP 19; TEMP 97.5
[2024-04-08 04:00] VITALS: BP 125/70; PULSE 88; RESP 16; TEMP 98.2
[2024-04-08 07:24] LABS: HEMATOCRIT. 31.6 % (36.0-48.0); HEMOGLOBIN. 9.7 g/dL (12.0-16.0); MEAN CORPUSCULAR HEMOGLOBIN 28.8 pg (28.0-32.0); MEAN CORPUSCULAR HGB CONC 30.7 g/dL (31.0-37.0); MEAN CORPUSCULAR VOLUME 93.9 fL (81.0-99.0); MEAN PLATELET VOLUME 8.9 fl (7.4-10.4); PLATELET 148 x1000/uL (130-400); RED BLOOD CELL COUNT 3.37 mill/uL (4.2-5.4); RED CELL DISTRIBUTION WIDTH 18.6 % (11.6-14.6); WHITE BLOOD COUNT 7.6 x1000/uL (4.5-11.0)
[2024-04-08 07:30] LABS: CARBON DIOXIDE 38 mEq/L (21-32); CHLORIDE 98 mEq/L (98-107); POTASSIUM 3.5 mEq/L (3.5-5.1); SODIUM 142 mEq/L (136-145)
[2024-04-08 07:32] LABS: CALCIUM 8.3 mg/dL (8.7-10.4)
[2024-04-08 07:36] LABS: CREATININE 0.8 mg/dL (0.6-1.0); GLUCOSE 88 mg/dL (70-105); UREA NITROGEN BLOOD 22 mg/dL (9-23)
[2024-04-08 08:00] VITALS: BP 132/72; PULSE 99; RESP 18; TEMP 97.9
[2024-04-08 08:25] LABS: DIFFERENTIAL COMMENT 1
[2024-04-08 09:50] LABS: PLATELET ESTIMATE NORMAL
[2024-04-08 12:00] VITALS: BP 124/52; PULSE 96; RESP 18; TEMP 97.9
[2024-04-08 16:00] VITALS: BP 133/52; PULSE 97; RESP 20; TEMP 97.6
[2024-04-08 20:00] VITALS: BP 124/57; PULSE 99; RESP 21; TEMP 98.1
[2024-04-08] MEDS: HYDROCODONE/ACETAMINOPHEN 5/325MG TABLET PO PRN (21:50)
[2024-04-09] VITALS: BP 110/62; PULSE 97; RESP 18; TEMP 97.7
[2024-04-09 04:00] VITALS: BP 128/65; PULSE 91; RESP 17; TEMP 97
[2024-04-09 08:00] VITALS: BP 129/64; PULSE 77; RESP 18; TEMP 97.8
[2024-04-09 10:19] LABS: HEMATOCRIT. 33.6 % (36.0-48.0); HEMOGLOBIN. 10.1 g/dL (12.0-16.0); MEAN CORPUSCULAR HEMOGLOBIN 28.5 pg (28.0-32.0); MEAN CORPUSCULAR HGB CONC 30.2 g/dL (31.0-37.0); MEAN CORPUSCULAR VOLUME 94.3 fL (81.0-99.0); MEAN PLATELET VOLUME 8.6 fl (7.4-10.4); PLATELET 147 x1000/uL (130-400); RED BLOOD CELL COUNT 3.56 mill/uL (4.2-5.4); RED CELL DISTRIBUTION WIDTH 18.5 % (11.6-14.6); WHITE BLOOD COUNT 8.4 x1000/uL (4.5-11.0)
[2024-04-09 10:23] LABS: CARBON DIOXIDE 38 mEq/L (21-32); CHLORIDE 98 mEq/L (98-107); POTASSIUM 3.2 mEq/L (3.5-5.1); SODIUM 138 mEq/L (136-145)
[2024-04-09 10:24] LABS: CALCIUM 8.3 mg/dL (8.7-10.4)
[2024-04-09 10:28] LABS: CREATININE 0.7 mg/dL (0.6-1.0); GLUCOSE 87 mg/dL (70-105)
[2024-04-09 10:29] LABS: UREA NITROGEN BLOOD 21 mg/dL (9-23)
[2024-04-09 10:37] LABS: DIFFERENTIAL COMMENT 1
[2024-04-09] MEDS ORDERED: SALI45SP MM (11:09)
[2024-04-09] MEDS ORDERED: XYLI550M MM (11:09)
[2024-04-09] MEDS ORDERED: MULT-230 MT (11:09)
[2024-04-09] MEDS ORDERED: AMOX1TAB16 MT (11:09)
[2024-04-09] MEDS: POTASSIUM CHLORIDE 20MEQ/PACKET PO NR (11:17)
[2024-04-09 12:00] VITALS: BP 132/52; PULSE 93; RESP 18; TEMP 97.8
[2024-04-09] MEDS ORDERED: DEXTROSE 50% WATER 50ML SYRINGE IV PRN (12:15)
[2024-04-09 13:29] LABS: TROPONIN I HIGH SENSITIVITY 32 ng/L (3.0-34)
[2024-04-09 16:00] VITALS: BP 129/47; PULSE 88; RESP 21; TEMP 97.6
[2024-04-09] MEDS: [UNRECOGNIZED DRUG - OTHER] MM PRN (18:44)
[2024-04-09] MEDS: ONDANSETRON HCL 4MG/2ML INJ IV PRN (18:44)
[2024-04-09] MEDS: ELECTROLYTES MM PRN (18:44)
[2024-04-09 20:00] VITALS: BP 103/68; PULSE 85; RESP 16; TEMP 97
[2024-04-09 21:19] LABS: PLATELET ESTIMATE NORMAL
[2024-04-09 21:20] LABS: ANISOCYTOSIS 1+
[2024-04-10] VITALS (18 sets, daily range): BP systolic 73–140; BP diastolic 38–123; PULSE 80–158; RESP 12–26; TEMP 96.1–99.5
[2024-04-10] MEDS ORDERED: ETOMIDATE 2MG/ML 10ML VIAL IV ONE (09:00)
[2024-04-10] MEDS: PRIMIDONE 50MG TABLET PO SCH (12:28)
[2024-04-10] MEDS: SERTRALINE HCL 50MG TABLET PO SCH (12:30)
[2024-04-10] MEDS: DILTIAZEM HCL 30MG TABLET PO SCH (12:39)
[2024-04-10] MEDS: DIGOXIN 125MCG TABLET PO SCH (17:02)
[2024-04-10 20:51] LABS: BG BASE EXCESS 8.9 mmol/L (-2.0-2.0); BG CARBOXYHEMOGLOBIN 0.3 % (0.5-1.5); BG DEOXYHEMOGLOBIN 4.5 % (0.0-5.0); BG FRACTION INSPIRED OXYGEN 60; BG HCO3 ACT 39.5 mmol/L (22.0-26.0); BG METHEMOGLOBIN 0.3 % (0.0-1.5); BG OXYGEN SATURATION 95.5 % (92.0-98.5); BG OXYHEMOGLOBIN 94.9 % (94.0-97.0); BG PCO2 101.5 mmHg (35.0-45.0); BG PH 7.208 (7.350-7.450); BG PO2 81.7 mmHg (75.0-100.0); BG SAMPLE SITE RIGHT RADIAL; BG TOTAL HEMOGLOBIN 10.2 g/dL (12.0-18.0); BG VENT MODE MASK - SIMPLE
[2024-04-10] MEDS ORDERED: FENTANYL CITRATE/PF 2,500 MCG in SODIUM CHLORIDE 0.9% 200 ML IV PRN (21:00)
[2024-04-10] MEDS: APIXABAN 5 MG TABLET PO SCH (21:00)
[2024-04-10] MEDS: FUROSEMIDE 40MG TABLET PO SCH (21:00)
[2024-04-10] MEDS ORDERED: MIDAZOLAM HCL 5 MG/5 ML VIAL IV PRN (21:00)
[2024-04-10] MEDS: ATORVASTATIN CALCIUM 10MG TABLET PO SCH (21:00)
[2024-04-10] MEDS: MIDAZOLAM 100MG/100ML PREMIX IV PRN (21:56)
[2024-04-10] MEDS: NOREPINEPHRINE 8MG/250ML PMX 250 ML IV PRN (22:10)
[2024-04-10] MEDS ORDERED: DILTIAZEM HCL 125 MG in DEXT 5% WATER 100 ML IV PRN (22:45)
[2024-04-10] MEDS: DILTIAZEM HCL 5MG/ML 5ML VIAL IV PRN (22:56)
[2024-04-10 23:26] LABS: BG BASE EXCESS 7.7 mmol/L (-2.0-2.0); BG CARBOXYHEMOGLOBIN 0.3 % (0.5-1.5); BG DEOXYHEMOGLOBIN 0.2 % (0.0-5.0); BG FRACTION INSPIRED OXYGEN 100; BG HCO3 ACT 30.3 mmol/L (22.0-26.0); BG METHEMOGLOBIN 0.3 % (0.0-1.5); BG OXYGEN SATURATION 99.8 % (92.0-98.5); BG OXYHEMOGLOBIN 99.2 % (94.0-97.0); BG PCO2 34.9 mmHg (35.0-45.0); BG PH 7.556 (7.350-7.450); BG PO2 303.4 mmHg (75.0-100.0); BG SAMPLE SITE RIGHT BRACHIAL; BG TOTAL HEMOGLOBIN 10.8 g/dL (12.0-18.0); BG TOTAL RESPIRATORY RATE 20 b/min; BG VENT MODE VENT - AC
[2024-04-10] MEDS: DILTIAZEM HCL 125 MG in DEXT 5% WATER 100 ML IV PRN (23:35)
[2024-04-11] VITALS (91 sets, daily range): BP systolic 65–140; BP diastolic 28–121; PULSE 78–164; RESP 14–21; TEMP 97.1–99.6
[2024-04-11] MEDS ORDERED: DILTIAZEM HCL 5MG/ML 5ML VIAL IV SCH
[2024-04-11] MEDS: IPRATROPIUM/ALBUTEROL 0.5-3(2.5)MG/3ML NEB HHN SCH (00:25)
[2024-04-11 06:47] LABS: HEMATOCRIT 29.7 % (36.0-48.0); HEMOGLOBIN 8.8 g/dL (12.0-16.0); MEAN CORPUSCULAR HEMOGLOBIN 28.1 pg (28.0-32.0); MEAN CORPUSCULAR HGB CONC 29.6 g/dL (31.0-37.0); MEAN CORPUSCULAR VOLUME 94.9 fL (81.0-99.0); PLATELET 182 x1000/uL (130-400); RED BLOOD CELL COUNT 3.13 mill/uL (4.2-5.4); RED CELL DISTRIBUTION WIDTH 18.3 % (11.6-14.6)
[2024-04-11 07:05] LABS: CHLORIDE 97 mEq/L (98-107); SODIUM 138 mEq/L (136-145)
[2024-04-11 07:07] LABS: CARBON DIOXIDE 34 mEq/L (21-32)
[2024-04-11 07:08] LABS: CALCIUM 8.3 mg/dL (8.7-10.4)
[2024-04-11 07:12] LABS: GLUCOSE 131 mg/dL (70-105); UREA NITROGEN BLOOD 29 mg/dL (9-23)
[2024-04-11 07:13] LABS: ALANINE AMINOTRANSFERASE 10 IU/L (10-49)
[2024-04-11 07:18] LABS: ALBUMIN 2.5 g/dL (3.2-4.8); ASPARTATE AMINOTRANSFERASE 28 IU/L (<34); BILIRUBIN TOTAL 0.8 mg/dL (0.1-1.0); DIGOXIN 0.9 ng/mL (0.8-2.0)
[2024-04-11 08:16] LABS: BG BASE EXCESS 9.8 mmol/L (-2.0-2.0); BG CARBOXYHEMOGLOBIN 0.2 % (0.5-1.5); BG DEOXYHEMOGLOBIN 0.8 % (0.0-5.0); BG FRACTION INSPIRED OXYGEN 40; BG HCO3 ACT 33.9 mmol/L (22.0-26.0); BG METHEMOGLOBIN 0.3 % (0.0-1.5); BG OXYGEN SATURATION 99.2 % (92.0-98.5); BG OXYHEMOGLOBIN 98.7 % (94.0-97.0); BG PH 7.504 (7.350-7.450); BG PO2 145.6 mmHg (75.0-100.0); BG SAMPLE SITE LEFT BRACHIAL; BG TOTAL HEMOGLOBIN 9.9 g/dL (12.0-18.0); BG TOTAL RESPIRATORY RATE 16 b/min; BG VENT MODE VENT - AC
[2024-04-11] MEDS: PHENYLEPHRINE 100 MG in DEXT 5% WATER 240 ML IV PRN (08:27)
[2024-04-11] MEDS: LACTATED RINGERS 500 ML IV SCH (09:11)
[2024-04-11] MEDS: PANTOPRAZOLE 40MG DR TABLET PO SCH (09:24)
[2024-04-11] MEDS: ALBUMIN HUMAN 12.5GM/50ML (25%) IV NR (09:24)
[2024-04-11] MEDS ORDERED: ACETAZOLAMIDE 500MG ER CAPSULE PO NR (09:43)
[2024-04-11] MEDS: BUDESONIDE 0.5MG/2ML NEB HHN SCH (13:55)
[2024-04-11] MEDS: MAGNESIUM 2 G PREMIX 50 ML IV NR (15:46)
[2024-04-11 16:42] LABS: HEMATOCRIT 26.4 % (36.0-48.0); HEMOGLOBIN 7.9 g/dL (12.0-16.0); MEAN CORPUSCULAR HEMOGLOBIN 28.2 pg (28.0-32.0); MEAN CORPUSCULAR HGB CONC 30.1 g/dL (31.0-37.0); MEAN CORPUSCULAR VOLUME 93.8 fL (81.0-99.0); PLATELET 164 x1000/uL (130-400); RED BLOOD CELL COUNT 2.81 mill/uL (4.2-5.4); WHITE BLOOD COUNT 14.6 x1000/uL (4.5-11.0)
[2024-04-11] MEDS: AMIODARONE 150MG/100ML 100 ML IV SCH (17:13)
[2024-04-11] MEDS: MIDODRINE HCL 5MG TABLET PO SCH (17:15)
[2024-04-12] VITALS (113 sets, daily range): BP systolic 65–135; BP diastolic 24–124; PULSE 82–149; RESP 15–27; TEMP 96.8–98
[2024-04-12 06:37] LABS: PHOSPHORUS 1.1 mg/dL (2.5-4.9)
[2024-04-12 09:32] LABS: BG BASE EXCESS 4.4 mmol/L (-2.0-2.0); BG CARBOXYHEMOGLOBIN 0.3 % (0.5-1.5); BG DEOXYHEMOGLOBIN 1.8 % (0.0-5.0); BG FRACTION INSPIRED OXYGEN 30; BG METHEMOGLOBIN 0.3 % (0.0-1.5); BG OXYGEN SATURATION 98.2 % (92.0-98.5); BG OXYHEMOGLOBIN 97.6 % (94.0-97.0); BG PCO2 37.7 mmHg (35.0-45.0); BG PH 7.488 (7.350-7.450); BG PO2 100.3 mmHg (75.0-100.0); BG SAMPLE SITE RIGHT RADIAL; BG TOTAL HEMOGLOBIN 10.5 g/dL (12.0-18.0); BG VENT MODE VENT - AC
[2024-04-12] MEDS ORDERED: SODIUM PHOSPHATE 10 MMOL in DEXT 5% WATER 246.6667 ML IV ONE (11:45)
[2024-04-12] MEDS: MAGNESIUM 2 G PREMIX 50 ML IV SCH (12:19)
[2024-04-12] MEDS: MIDODRINE HCL 5MG TABLET PO SCH (12:26)
[2024-04-12] MEDS ORDERED: LIDOCAINE HCL 1% 10 MG/ML 10ML VIAL ONE ×2 (12:45→13:49)
[2024-04-12] MEDS: POTASSIUM PHOSPHATE 10 MMOL in DEXT 5% WATER 246.6667 ML IV ONE (13:52)
[2024-04-12] MEDS: PIPERACILLIN/TAZO 3.375G/50ML 50 ML IV SCH (15:11)
[2024-04-12 15:29] LABS: HEMOGLOBIN. 8.3 g/dL (12.0-16.0); MEAN CORPUSCULAR HEMOGLOBIN 28.3 pg (28.0-32.0); MEAN CORPUSCULAR HGB CONC 30.7 g/dL (31.0-37.0); MEAN CORPUSCULAR VOLUME 92.3 fL (81.0-99.0); MEAN PLATELET VOLUME 9.4 fl (7.4-10.4); PLATELET 128 x1000/uL (130-400); RED BLOOD CELL COUNT 2.93 mill/uL (4.2-5.4); RED CELL DISTRIBUTION WIDTH 17.4 % (11.6-14.6); WHITE BLOOD COUNT 16.4 x1000/uL (4.5-11.0)
[2024-04-12 15:32] LABS: CARBON DIOXIDE 30 mEq/L (21-32); CHLORIDE 91 mEq/L (98-107); POTASSIUM 5.7 mEq/L (3.5-5.1); SODIUM 127 mEq/L (136-145)
[2024-04-12 15:33] LABS: CALCIUM 7.5 mg/dL (8.7-10.4)
[2024-04-12 15:35] LABS: DIFFERENTIAL COMMENT 1
[2024-04-12 15:38] LABS: CREATININE 0.9 mg/dL (0.6-1.0); GLUCOSE 282 mg/dL (70-105); UREA NITROGEN BLOOD 26 mg/dL (9-23)
[2024-04-12 15:39] LABS: ALANINE AMINOTRANSFERASE 10 IU/L (10-49); ASPARTATE AMINOTRANSFERASE 18 IU/L (<34)
[2024-04-12 15:40] LABS: ALBUMIN 2.1 g/dL (3.2-4.8); PHOSPHORUS 5.4 mg/dL (2.5-4.9); PROTEIN TOTAL 4.4 g/dL (6.0-8.3)
[2024-04-12 17:39] LABS: CHLORIDE 96 mEq/L (98-107); SODIUM 133 mEq/L (136-145)
[2024-04-12 17:40] LABS: CALCIUM 7.8 mg/dL (8.7-10.4); CARBON DIOXIDE 34 mEq/L (21-32)
[2024-04-12 17:44] LABS: CREATININE 0.9 mg/dL (0.6-1.0)
[2024-04-12 17:45] LABS: GLUCOSE 143 mg/dL (70-105); UREA NITROGEN BLOOD 29 mg/dL (9-23)
[2024-04-12 18:08] LABS: POTASSIUM 3.4 mEq/L (3.5-5.1)
[2024-04-12] MEDS: AMIODARONE 150MG/100ML 100 ML IV NR (19:02)
[2024-04-12] MEDS: SODIUM CHLORIDE 0.9% 250 ML IV NR (19:02)
[2024-04-12] MEDS: AMIODARONE HCL 900 MG in DEXT 5% WATER 482 ML IV PRN (19:44)
[2024-04-12] MEDS: VASOPRESSIN 20 UNIT in SODIUM CHLORIDE 0.9% 99 ML IV PRN (19:47)
[2024-04-12 20:35] LABS: POTASSIUM 3.3 mEq/L (3.5-5.1)
[2024-04-12 22:28] LABS: ANISOCYTOSIS 1+; PLATELET ESTIMATE SLIGHTLY DECREASED
[2024-04-12 22:29] LABS: HYPOCHROMASIA 1+; OVALOCYTES 1+
[2024-04-12] MEDS: POTASSIUM PHOSPHATE 10 MMOL in DEXT 5% WATER 246.6667 ML IV PRN (23:58)
[2024-04-13] VITALS (105 sets, daily range): BP systolic 51–128; BP diastolic 17–92; PULSE 80–117; RESP 16–26; TEMP 97.8–98.9
[2024-04-13 05:45] LABS: CARBON DIOXIDE 28 mEq/L (21-32); CHLORIDE 93 mEq/L (98-107); POTASSIUM 3.5 mEq/L (3.5-5.1); SODIUM 127 mEq/L (136-145)
[2024-04-13 05:46] LABS: CALCIUM 6.7 mg/dL (8.7-10.4); HEMATOCRIT. 25.8 % (36.0-48.0); HEMOGLOBIN. 7.9 g/dL (12.0-16.0); MEAN CORPUSCULAR HGB CONC 30.8 g/dL (31.0-37.0); MEAN CORPUSCULAR VOLUME 91.2 fL (81.0-99.0); PLATELET 156 x1000/uL (130-400); RED BLOOD CELL COUNT 2.83 mill/uL (4.2-5.4); RED CELL DISTRIBUTION WIDTH 19.1 % (11.6-14.6); WHITE BLOOD COUNT 21.5 x1000/uL (4.5-11.0)
[2024-04-13 05:51] LABS: GLUCOSE 289 mg/dL (70-105); UREA NITROGEN BLOOD 31 mg/dL (9-23)
[2024-04-13 05:53] LABS: PHOSPHORUS 2.2 mg/dL (2.5-4.9)
[2024-04-13 06:43] LABS: DIFFERENTIAL COMMENT 1
[2024-04-13] MEDS ORDERED: SODIUM PHOSPHATE 15 MMOL in DEXT 5% WATER 245 ML IV ONE (10:30)
[2024-04-13 10:50] LABS: BG BASE EXCESS 2.1 mmol/L (-2.0-2.0); BG CARBOXYHEMOGLOBIN 0.3 % (0.5-1.5); BG DEOXYHEMOGLOBIN 2.7 % (0.0-5.0); BG FRACTION INSPIRED OXYGEN 30; BG HCO3 ACT 26.4 mmol/L (22.0-26.0); BG METHEMOGLOBIN 0.8 % (0.0-1.5); BG OXYGEN SATURATION 97.3 % (92.0-98.5); BG OXYHEMOGLOBIN 96.2 % (94.0-97.0); BG PCO2 39.8 mmHg (35.0-45.0); BG PH 7.439 (7.350-7.450); BG PO2 98.7 mmHg (75.0-100.0); BG SAMPLE SITE RIGHT RADIAL; BG TOTAL HEMOGLOBIN 9.2 g/dL (12.0-18.0); BG VENT MODE VENT - AC
[2024-04-13] MEDS: ALBUMIN HUMAN 12.5G/250ML (5%) IV NR (11:34)
[2024-04-13 12:17] LABS: PLATELET ESTIMATE NORMAL
[2024-04-13 12:18] LABS: ANISOCYTOSIS 1+; HYPOCHROMASIA 1+
[2024-04-13] MEDS ORDERED: CALCIUM GLUCONATE 1GM PREMIX 50 ML IV ONE ×2 (12:30)
[2024-04-13 12:33] LABS: IRON 18 ug/dL (50-170)
[2024-04-13 12:35] LABS: LACTATE DEHYDROGENASE 154 IU/L (120-246)
[2024-04-13 12:36] LABS: TOTAL IRON BINDING CAPACITY 176 ug/dl (250-425)
[2024-04-13 13:02] LABS: NUCLEATED RED BLOOD CELLS 1 /100 WBC
[2024-04-13 13:03] LABS: FERRITIN 131 ng/mL (10-291); FOLIC ACID (FOLATE) SERUM 9.99 ng/mL (>5.38)
[2024-04-13 13:04] LABS: VITAMIN B12 SERUM 640 pg/mL (211-911)
[2024-04-13] MEDS: POTASSIUM PHOSPHATE 15MMOL in DEXTROSE 5% WATER 250ML IV NR (13:08)
[2024-04-13] MEDS: VANCOMYCIN 1.5GM/250ML IV SCH (13:10)
[2024-04-13] MEDS: BLOOD SUGAR DIAGNOSTIC STRIP TEST SCH (13:10)
[2024-04-13] MEDS: INSULIN LISPRO 100 UNITS/ML SUBCUT SCH (13:11)
[2024-04-13 13:12] LABS: PREALBUMIN < 5.0 mg/dl (10.0-40.0)
[2024-04-13] MEDS: CALCIUM GLUCONATE 1GM PREMIX 50 ML IV NR ×2 (16:01→17:19)
[2024-04-13] MEDS: ATORVASTATIN CALCIUM 40MG TABLET PO SCH (20:52)
[2024-04-14] VITALS (101 sets, daily range): BP systolic 83–147; BP diastolic 35–100; PULSE 82–102; RESP 15–28; TEMP 96.8–98.9
[2024-04-14 05:00] LABS: HEMATOCRIT. 23.1 % (36.0-48.0); HEMOGLOBIN. 7.2 g/dL (12.0-16.0); MEAN CORPUSCULAR HEMOGLOBIN 28.1 pg (28.0-32.0); MEAN CORPUSCULAR HGB CONC 31.1 g/dL (31.0-37.0); MEAN CORPUSCULAR VOLUME 90.4 fL (81.0-99.0); MEAN PLATELET VOLUME 9.9 fl (7.4-10.4); PLATELET 151 x1000/uL (130-400); RED BLOOD CELL COUNT 2.55 mill/uL (4.2-5.4); RED CELL DISTRIBUTION WIDTH 18.7 % (11.6-14.6); WHITE BLOOD COUNT 23.4 x1000/uL (4.5-11.0)
[2024-04-14 05:04] LABS: DIFFERENTIAL COMMENT 1
[2024-04-14 05:17] LABS: CALCIUM 7.1 mg/dL (8.7-10.4); CARBON DIOXIDE 31 mEq/L (21-32); CHLORIDE 93 mEq/L (98-107); POTASSIUM 3.6 mEq/L (3.5-5.1); SODIUM 128 mEq/L (136-145)
[2024-04-14 05:23] LABS: CREATININE 0.8 mg/dL (0.6-1.0); GLUCOSE 169 mg/dL (70-105); UREA NITROGEN BLOOD 29 mg/dL (9-23)
[2024-04-14 05:25] LABS: PHOSPHORUS 2.6 mg/dL (2.5-4.9)
[2024-04-14 06:00] LABS: ATYPICAL LYMPHOCYTES 1; GIANT PLATELETS FEW; HYPOCHROMASIA 2+; OVALOCYTES 3+; PLATELET ESTIMATE NORMAL; TARGET CELLS 1+
[2024-04-14 09:46] LABS: BG BASE EXCESS 4.7 mmol/L (-2.0-2.0); BG CARBOXYHEMOGLOBIN 0.2 % (0.5-1.5); BG DEOXYHEMOGLOBIN 2.3 % (0.0-5.0); BG FRACTION INSPIRED OXYGEN 30; BG HCO3 ACT 29.6 mmol/L (22.0-26.0); BG METHEMOGLOBIN 0.3 % (0.0-1.5); BG OXYGEN SATURATION 97.7 % (92.0-98.5); BG OXYHEMOGLOBIN 97.2 % (94.0-97.0); BG PH 7.426 (7.350-7.450); BG PO2 101.2 mmHg (75.0-100.0); BG SAMPLE SITE RIGHT BRACHIAL; BG VENT MODE VENT - AC
[2024-04-14] MEDS: MEROPENEM 1G/100ML 100 ML IV SCH (09:59)
[2024-04-14] MEDS: ALBUMIN HUMAN 12.5GM/50ML (25%) IV NR (10:00)
[2024-04-14] MEDS: AMIODARONE HCL 200 MG TABLET PO SCH (10:00)
[2024-04-14] MEDS: SODIUM CHLORIDE 0.9% 1,000 ML IV SCH (12:00)
[2024-04-14] MEDS: VANCOMYCIN 1G PREMIX 200 ML IV SCH (13:40)
[2024-04-14] MEDS: MIDODRINE HCL 5MG TABLET PO SCH (13:42)
[2024-04-15] VITALS (112 sets, daily range): BP systolic 79–151; BP diastolic 42–133; PULSE 82–99; RESP 15–34; TEMP 96.8–98.6
[2024-04-15 02:59] LABS: HEMATOCRIT 24.5 % (36.0-48.0); HEMOGLOBIN 8.1 g/dL (12.0-16.0)
[2024-04-15 05:25] LABS: DIFFERENTIAL COMMENT 1; HEMATOCRIT. 24.3 % (36.0-48.0); HEMOGLOBIN. 7.6 g/dL (12.0-16.0); MEAN CORPUSCULAR HGB CONC 31.5 g/dL (31.0-37.0); MEAN CORPUSCULAR VOLUME 92.2 fL (81.0-99.0); MEAN PLATELET VOLUME 9.5 fl (7.4-10.4); PLATELET 152 x1000/uL (130-400); RED BLOOD CELL COUNT 2.63 mill/uL (4.2-5.4); RED CELL DISTRIBUTION WIDTH 17.4 % (11.6-14.6); WHITE BLOOD COUNT 24.4 x1000/uL (4.5-11.0)
[2024-04-15 05:29] LABS: CHLORIDE 97 mEq/L (98-107); POTASSIUM 3.8 mEq/L (3.5-5.1); SODIUM 129 mEq/L (136-145)
[2024-04-15 05:30] LABS: CARBON DIOXIDE 24 mEq/L (21-32)
[2024-04-15 05:35] LABS: CREATININE 0.7 mg/dL (0.6-1.0); GLUCOSE 149 mg/dL (70-105); UREA NITROGEN BLOOD 19 mg/dL (9-23)
[2024-04-15 06:08] LABS: PLATELET ESTIMATE NORMAL
[2024-04-15 06:09] LABS: GIANT PLATELETS FEW; HYPOCHROMASIA 2+; OVALOCYTES 2+; TARGET CELLS 1+; TEAR DROP CELLS 1+
[2024-04-15] MEDS ORDERED: SODIUM CHL 0.9% + KCL 20MEQ/L 1,000 ML IV ONE (11:15)
[2024-04-15] MEDS: KCL 20MEQ/100ML PREMIX 100 ML IV NR (11:34)
[2024-04-15 22:17] LABS: CHLORIDE 99 mEq/L (98-107); POTASSIUM 4.3 mEq/L (3.5-5.1); SODIUM 132 mEq/L (136-145)
[2024-04-15 22:18] LABS: CARBON DIOXIDE 25 mEq/L (21-32)
[2024-04-15 22:19] LABS: CALCIUM 7.1 mg/dL (8.7-10.4)
[2024-04-15 22:23] LABS: CREATININE 0.7 mg/dL (0.6-1.0); GLUCOSE 129 mg/dL (70-105); UREA NITROGEN BLOOD 19 mg/dL (9-23)
[2024-04-16] VITALS (114 sets, daily range): BP systolic 91–146; BP diastolic 35–92; PULSE 80–104; RESP 14–22; TEMP 97.4–98.6
[2024-04-16 05:35] LABS: HEMATOCRIT. 21.9 % (36.0-48.0); MEAN CORPUSCULAR HEMOGLOBIN 29.7 pg (28.0-32.0); MEAN CORPUSCULAR HGB CONC 31.6 g/dL (31.0-37.0); MEAN CORPUSCULAR VOLUME 93.8 fL (81.0-99.0); MEAN PLATELET VOLUME 9.6 fl (7.4-10.4); PLATELET 164 x1000/uL (130-400); RED BLOOD CELL COUNT 2.33 mill/uL (4.2-5.4); RED CELL DISTRIBUTION WIDTH 17.6 % (11.6-14.6)
[2024-04-16 05:48] LABS: CHLORIDE 102 mEq/L (98-107); POTASSIUM 4.5 mEq/L (3.5-5.1); SODIUM 132 mEq/L (136-145)
[2024-04-16 05:49] LABS: CARBON DIOXIDE 25 mEq/L (21-32)
[2024-04-16 05:50] LABS: CALCIUM 7.9 mg/dL (8.7-10.4)
[2024-04-16 05:54] LABS: CREATININE 0.7 mg/dL (0.6-1.0); DIFFERENTIAL COMMENT 1; HEMOGLOBIN. 6.9 g/dL (12.0-16.0)
[2024-04-16 05:55] LABS: GLUCOSE 116 mg/dL (70-105); UREA NITROGEN BLOOD 17 mg/dL (9-23)
[2024-04-16 07:16] LABS: BG BASE EXCESS 3.2 mmol/L (-2.0-2.0); BG CARBOXYHEMOGLOBIN 1.3 % (0.5-1.5); BG FRACTION INSPIRED OXYGEN 30; BG HCO3 ACT 28.5 mmol/L (22.0-26.0); BG METHEMOGLOBIN 0.4 % (0.0-1.5); BG OXYHEMOGLOBIN 97.3 % (94.0-97.0); BG PCO2 47.6 mmHg (35.0-45.0); BG PH 7.395 (7.350-7.450); BG PO2 142.1 mmHg (75.0-100.0); BG SAMPLE SITE RIGHT RADIAL; BG TOTAL HEMOGLOBIN 7.7 g/dL (12.0-18.0); BG VENT MODE VENT - AC/VC
[2024-04-16 10:44] LABS: PLATELET ESTIMATE NORMAL
[2024-04-16] MEDS: ALBUMIN HUMAN 12.5GM/50ML (25%) IV NR (13:39)
[2024-04-16 20:06] LABS: CLARITY URINE CLOUDY (CLEAR); COLOR URINE DARK YELLOW (YELLOW); GLUCOSE URINE NEGATIVE (NEGATIVE); KETONES URINE NEGATIVE (NEGATIVE); LEUKOCYTE ESTERASE URINE 3+ (NEGATIVE); NITRITE URINE NEGATIVE (NEGATIVE); OCCULT BLOOD URINE 3+ (NEGATIVE); PROTEIN URINE 1+ (NEGATIVE); SPECIFIC GRAVITY URINE 1.017 (1.005-1.030); UROBILINOGEN URINE 0.2 E.U./dL (0.2-1.0)
[2024-04-16 20:48] LABS: BACTERIA URINE 3+; RBC URINE TNTC /hpf (0-2); SQUAMOUS EPITHELIAL CELL URINE 3+ /lpf (RARE/1+); WBC URINE TNTC /hpf (0-2)
[2024-04-16 21:38] LABS: HEMATOCRIT 22.3 % (36.0-48.0); HEMOGLOBIN 7.1 g/dL (12.0-16.0); MEAN CORPUSCULAR HEMOGLOBIN 29.7 pg (28.0-32.0); PLATELET 153 x1000/uL (130-400); RED CELL DISTRIBUTION WIDTH 16.7 % (11.6-14.6); WHITE BLOOD COUNT 20.4 x1000/uL (4.5-11.0)
[2024-04-17] VITALS (107 sets, daily range): BP systolic 86–130; BP diastolic 39–64; PULSE 74–101; RESP 14–23; TEMP 97.3–98.5
[2024-04-17] MEDS: VANCOMYCIN 1G PREMIX 200 ML IV SCH (01:12)
[2024-04-17] MEDS: NOREPINEPHRINE 8MG/250ML PMX 250 ML IV PRN (05:40)
[2024-04-17 06:57] LABS: MEAN CORPUSCULAR HEMOGLOBIN 29.5 pg (28.0-32.0); MEAN CORPUSCULAR HGB CONC 32.3 g/dL (31.0-37.0); MEAN CORPUSCULAR VOLUME 91.3 fL (81.0-99.0); MEAN PLATELET VOLUME 8.8 fl (7.4-10.4); PLATELET 183 x1000/uL (130-400); RED BLOOD CELL COUNT 2.03 mill/uL (4.2-5.4); RED CELL DISTRIBUTION WIDTH 16.5 % (11.6-14.6); WHITE BLOOD COUNT 20.7 x1000/uL (4.5-11.0)
[2024-04-17 07:01] LABS: CHLORIDE 104 mEq/L (98-107); POTASSIUM 4.1 mEq/L (3.5-5.1); SODIUM 134 mEq/L (136-145)
[2024-04-17 07:02] LABS: CALCIUM 7.6 mg/dL (8.7-10.4)
[2024-04-17 07:07] LABS: CREATININE 0.6 mg/dL (0.6-1.0); GLUCOSE 115 mg/dL (70-105); UREA NITROGEN BLOOD 26 mg/dL (9-23)
[2024-04-17 07:32] LABS: HEMATOCRIT. 18.5 % (36.0-48.0)
[2024-04-17 07:33] LABS: DIFFERENTIAL COMMENT 1
[2024-04-17 08:17] LABS: CARBON DIOXIDE 27 mEq/L (21-32)
[2024-04-17] MEDS: PANTOPRAZOLE SODIUM 40 MG/VIAL IV SCH (09:32)
[2024-04-17] MEDS: ACETAMINOPHEN 650MG/20.3ML UDC PO SCH (10:25)
[2024-04-17 10:35] LABS: ANISOCYTOSIS 1+; PLATELET ESTIMATE NORMAL
[2024-04-17 10:59] LABS: BG BASE EXCESS 0.4 mmol/L (-2.0-2.0); BG CARBOXYHEMOGLOBIN 1.6 % (0.5-1.5); BG DEOXYHEMOGLOBIN 3.3 % (0.0-5.0); BG FRACTION INSPIRED OXYGEN 30; BG HCO3 ACT 25.7 mmol/L (22.0-26.0); BG METHEMOGLOBIN 0.4 % (0.0-1.5); BG OXYGEN SATURATION 96.6 % (92.0-98.5); BG OXYHEMOGLOBIN 94.7 % (94.0-97.0); BG PCO2 45.4 mmHg (35.0-45.0); BG PH 7.371 (7.350-7.450); BG PO2 93.3 mmHg (75.0-100.0); BG SAMPLE SITE RIGHT RADIAL; BG TOTAL HEMOGLOBIN 6.2 g/dL (12.0-18.0); BG VENT MODE VENT - AC
[2024-04-17] MEDS: INSULIN LISPRO 100 UNITS/ML SUBCUT SCH (14:00)
[2024-04-17] MEDS: BLOOD SUGAR DIAGNOSTIC STRIP TEST SCH (14:27)
[2024-04-17 16:58] LABS: HEMATOCRIT 21.2 % (36.0-48.0)
[2024-04-17 17:02] LABS: HEMOGLOBIN 6.8 g/dL (12.0-16.0)
[2024-04-17] MEDS: ACETAMINOPHEN 325MG TABLET PO PRN (21:40)
[2024-04-18] VITALS (103 sets, daily range): BP systolic 95–134; BP diastolic 44–70; PULSE 68–89; RESP 12–24; TEMP 97.5–98.2
[2024-04-18] MEDS: MIDODRINE HCL 5MG TABLET PO SCH (01:36)
[2024-04-18 05:39] LABS: HEMATOCRIT. 29.7 % (36.0-48.0); HEMOGLOBIN. 9.8 g/dL (12.0-16.0); MEAN CORPUSCULAR HEMOGLOBIN 29.8 pg (28.0-32.0); MEAN CORPUSCULAR HGB CONC 33.1 g/dL (31.0-37.0); MEAN PLATELET VOLUME 8.7 fl (7.4-10.4); PLATELET 166 x1000/uL (130-400); RED CELL DISTRIBUTION WIDTH 15.8 % (11.6-14.6)
[2024-04-18 05:44] LABS: CARBON DIOXIDE 27 mEq/L (21-32); CHLORIDE 105 mEq/L (98-107); SODIUM 137 mEq/L (136-145)
[2024-04-18 05:45] LABS: CALCIUM 8.1 mg/dL (8.7-10.4)
[2024-04-18 05:50] LABS: CREATININE 0.6 mg/dL (0.6-1.0); GLUCOSE 78 mg/dL (70-105); UREA NITROGEN BLOOD 26 mg/dL (9-23)
[2024-04-18 05:52] LABS: PHOSPHORUS 2.1 mg/dL (2.5-4.9)
[2024-04-18 06:41] LABS: DIFFERENTIAL COMMENT 1
[2024-04-18 09:47] LABS: ANISOCYTOSIS 1+; PLATELET ESTIMATE NORMAL
[2024-04-18] MEDS: POTASSIUM PHOSPHATE 10 MMOL in DEXT 5% WATER 246.6667 ML IV SCH (10:00)
[2024-04-18] MEDS: DEXT 5%/LACTATED RINGERS 1,000 ML IV ONE (10:11)
[2024-04-18] MEDS: MAGNESIUM 2 G PREMIX 50 ML IV SCH (11:19)
[2024-04-18 16:10] LABS: BG BASE EXCESS -2.5 mmol/L (-2.0-2.0); BG CARBOXYHEMOGLOBIN 0.8 % (0.5-1.5); BG DEOXYHEMOGLOBIN 3.6 % (0.0-5.0); BG FRACTION INSPIRED OXYGEN 30; BG HCO3 ACT 23.8 mmol/L (22.0-26.0); BG METHEMOGLOBIN 0.3 % (0.0-1.5); BG OXYGEN SATURATION 96.4 % (92.0-98.5); BG OXYHEMOGLOBIN 95.3 % (94.0-97.0); BG PCO2 47.8 mmHg (35.0-45.0); BG PH 7.315 (7.350-7.450); BG PO2 89.9 mmHg (75.0-100.0); BG SAMPLE SITE RIGHT RADIAL; BG TOTAL HEMOGLOBIN 10.1 g/dL (12.0-18.0); BG VENT MODE VENT - CPAP
[2024-04-18] MEDS ORDERED: TRAMADOL 50MG TABLET PO ONE (21:00)
[2024-04-18] MEDS ORDERED: NALOXONE HCL 0.4MG/ML VIAL IV PRN (21:30)
[2024-04-19] VITALS (90 sets, daily range): BP systolic 89–131; BP diastolic 42–114; PULSE 64–95; RESP 11–25; TEMP 97.7–98
[2024-04-19] MEDS: HYDROCODONE/ACETAMINOPHEN 5/325MG TABLET NG PRN (01:40)
[2024-04-19 05:41] LABS: HEMATOCRIT. 27.9 % (36.0-48.0); MEAN CORPUSCULAR HEMOGLOBIN 29.7 pg (28.0-32.0); MEAN CORPUSCULAR HGB CONC 32.4 g/dL (31.0-37.0); MEAN CORPUSCULAR VOLUME 91.8 fL (81.0-99.0); MEAN PLATELET VOLUME 8.6 fl (7.4-10.4); PLATELET 181 x1000/uL (130-400); RED BLOOD CELL COUNT 3.04 mill/uL (4.2-5.4); RED CELL DISTRIBUTION WIDTH 16.1 % (11.6-14.6); WHITE BLOOD COUNT 20.7 x1000/uL (4.5-11.0)
[2024-04-19 05:47] LABS: CARBON DIOXIDE 25 mEq/L (21-32); CHLORIDE 104 mEq/L (98-107); POTASSIUM 4.1 mEq/L (3.5-5.1); SODIUM 134 mEq/L (136-145)
[2024-04-19 05:48] LABS: CALCIUM 7.2 mg/dL (8.7-10.4)
[2024-04-19 05:52] LABS: CREATININE 0.7 mg/dL (0.6-1.0)
[2024-04-19 05:53] LABS: GLUCOSE 123 mg/dL (70-105); UREA NITROGEN BLOOD 31 mg/dL (9-23)
[2024-04-19 05:55] LABS: PHOSPHORUS 3.4 mg/dL (2.5-4.9)
[2024-04-19 06:30] LABS: DIFFERENTIAL COMMENT 1
[2024-04-19] MEDS: LACTATED RINGERS 1,000 ML IV ONE (08:15)
[2024-04-19 09:26] LABS: BG BASE EXCESS -2.2 mmol/L (-2.0-2.0); BG CARBOXYHEMOGLOBIN 0.9 % (0.5-1.5); BG DEOXYHEMOGLOBIN 2.7 % (0.0-5.0); BG FRACTION INSPIRED OXYGEN 30; BG HCO3 ACT 23.8 mmol/L (22.0-26.0); BG METHEMOGLOBIN 0.3 % (0.0-1.5); BG OXYGEN SATURATION 97.3 % (92.0-98.5); BG OXYHEMOGLOBIN 96.1 % (94.0-97.0); BG PCO2 46.8 mmHg (35.0-45.0); BG PH 7.325 (7.350-7.450); BG PO2 98.6 mmHg (75.0-100.0); BG SAMPLE SITE RIGHT RADIAL; BG TOTAL HEMOGLOBIN 9.8 g/dL (12.0-18.0); BG VENT MODE VENT - CPAP
[2024-04-19] MEDS ORDERED: SODIUM CHLORIDE 0.9% 1000ML BAG (SEPSIS BOLUS) IV ONE (09:30)
[2024-04-19] MEDS: SODIUM CHLORIDE 0.9% 250 ML IV ONE (09:44)
[2024-04-19 10:48] LABS: ANISOCYTOSIS 2+
[2024-04-19 10:56] LABS: PLATELET ESTIMATE NORMAL
[2024-04-19] MEDS ORDERED: FENTANYL 2500MCG/250ML PMX 250 ML IV PRN (16:30)
[2024-04-19 17:02] LABS: BG BASE EXCESS -3.4 mmol/L (-2.0-2.0); BG CARBOXYHEMOGLOBIN 0.6 % (0.5-1.5); BG DEOXYHEMOGLOBIN 3.9 % (0.0-5.0); BG FRACTION INSPIRED OXYGEN 30; BG HCO3 ACT 22.6 mmol/L (22.0-26.0); BG METHEMOGLOBIN 0.3 % (0.0-1.5); BG OXYGEN SATURATION 96.1 % (92.0-98.5); BG OXYHEMOGLOBIN 95.2 % (94.0-97.0); BG PCO2 44.3 mmHg (35.0-45.0); BG PH 7.325 (7.350-7.450); BG PO2 81.8 mmHg (75.0-100.0); BG SAMPLE SITE RIGHT RADIAL; BG TOTAL HEMOGLOBIN 10.9 g/dL (12.0-18.0); BG TOTAL RESPIRATORY RATE 16 b/min; BG VENT MODE VENT - AC
[2024-04-20] VITALS (74 sets, daily range): BP systolic 69–114; BP diastolic 36–82; PULSE 63–87; RESP 15–36; TEMP 97.7–98.7
[2024-04-20 06:53] LABS: CARBON DIOXIDE 24 mEq/L (21-32); CHLORIDE 105 mEq/L (98-107); POTASSIUM 4.4 mEq/L (3.5-5.1); SODIUM 135 mEq/L (136-145)
[2024-04-20 06:54] LABS: CALCIUM 7.3 mg/dL (8.7-10.4)
[2024-04-20 06:59] LABS: CREATININE 0.8 mg/dL (0.6-1.0); GLUCOSE 111 mg/dL (70-105); UREA NITROGEN BLOOD 32 mg/dL (9-23)
[2024-04-20 07:08] LABS: HEMATOCRIT. 28.4 % (36.0-48.0); MEAN CORPUSCULAR HEMOGLOBIN 29.7 pg (28.0-32.0); MEAN CORPUSCULAR HGB CONC 31.6 g/dL (31.0-37.0); MEAN CORPUSCULAR VOLUME 94.1 fL (81.0-99.0); MEAN PLATELET VOLUME 8.8 fl (7.4-10.4); PLATELET 200 x1000/uL (130-400); RED BLOOD CELL COUNT 3.02 mill/uL (4.2-5.4); RED CELL DISTRIBUTION WIDTH 16.4 % (11.6-14.6); WHITE BLOOD COUNT 24.5 x1000/uL (4.5-11.0)
[2024-04-20 07:29] LABS: DIFFERENTIAL COMMENT 1
[2024-04-20 08:53] LABS: BG BASE EXCESS -2.3 mmol/L (-2.0-2.0); BG CARBOXYHEMOGLOBIN 0.9 % (0.5-1.5); BG DEOXYHEMOGLOBIN 2.7 % (0.0-5.0); BG FRACTION INSPIRED OXYGEN 30; BG HCO3 ACT 22.2 mmol/L (22.0-26.0); BG METHEMOGLOBIN 0.2 % (0.0-1.5); BG OXYGEN SATURATION 97.3 % (92.0-98.5); BG OXYHEMOGLOBIN 96.2 % (94.0-97.0); BG PCO2 36.5 mmHg (35.0-45.0); BG PH 7.401 (7.350-7.450); BG PO2 94.8 mmHg (75.0-100.0); BG SAMPLE SITE RIGHT RADIAL; BG TOTAL HEMOGLOBIN 9.8 g/dL (12.0-18.0); BG VENT MODE VENT - AC
[2024-04-20] MEDS: SODIUM CHLORIDE 0.9% 1,000 ML IV SCH (11:31)
[2024-04-20 12:57] LABS: ANISOCYTOSIS 3+; PLATELET ESTIMATE NORMAL
[2024-04-20] MEDS ORDERED: *TOBRAMYCIN PER PHARMACY XX SCH (16:45)
[2024-04-20] MEDS: TOBRAMYCIN SULFATE 120 MG in SODIUM CHLORIDE 0.9% 100 ML IV NR (18:21)
[2024-04-20 19:41] LABS: CREATINE KINASE 26 IU/L (34-145)
[2024-04-20] MEDS ORDERED: [UNRECOGNIZED DRUG - REMARK] XX SCH (21:45)
[2024-04-20] MEDS: COLISTIMETHATE SODIUM 300 MG in SODIUM CHLORIDE 0.9% 100 ML IV NR (22:29)
[2024-04-21] VITALS (104 sets, daily range): BP systolic 77–128; BP diastolic 29–99; PULSE 67–90; RESP 11–28; TEMP 97.6–98.8
[2024-04-21 05:37] LABS: HEMATOCRIT. 26.1 % (36.0-48.0); HEMOGLOBIN. 8.4 g/dL (12.0-16.0); MEAN CORPUSCULAR HEMOGLOBIN 30.4 pg (28.0-32.0); MEAN CORPUSCULAR VOLUME 94.8 fL (81.0-99.0); MEAN PLATELET VOLUME 8.4 fl (7.4-10.4); PLATELET 180 x1000/uL (130-400); RED BLOOD CELL COUNT 2.76 mill/uL (4.2-5.4); RED CELL DISTRIBUTION WIDTH 16.7 % (11.6-14.6); WHITE BLOOD COUNT 20.6 x1000/uL (4.5-11.0)
[2024-04-21 05:40] LABS: DIFFERENTIAL COMMENT 1
[2024-04-21 05:52] LABS: CALCIUM 7.2 mg/dL (8.7-10.4); CHLORIDE 105 mEq/L (98-107); POTASSIUM 4.4 mEq/L (3.5-5.1); SODIUM 136 mEq/L (136-145)
[2024-04-21 05:53] LABS: CARBON DIOXIDE 27 mEq/L (21-32)
[2024-04-21 05:58] LABS: CREATININE 0.7 mg/dL (0.6-1.0); GLUCOSE 109 mg/dL (70-105); UREA NITROGEN BLOOD 36 mg/dL (9-23)
[2024-04-21 06:02] LABS: PLATELET ESTIMATE NORMAL
[2024-04-21 06:03] LABS: OVALOCYTES 1+
[2024-04-21 06:04] LABS: TARGET CELLS 1+; TEAR DROP CELLS 1+
[2024-04-21] MEDS: AMIODARONE HCL 200 MG TABLET PO SCH (08:17)
[2024-04-21] MEDS ORDERED: TOBRAMYCIN SULFATE 80 MG in SODIUM CHLORIDE 0.9% 100 ML IV SCH (18:00)
[2024-04-22] VITALS (105 sets, daily range): BP systolic 64–140; BP diastolic 28–84; PULSE 69–101; RESP 9–27; TEMP 97.3–99
[2024-04-22 05:43] LABS: HEMATOCRIT. 28.1 % (36.0-48.0); HEMOGLOBIN. 8.9 g/dL (12.0-16.0); MEAN CORPUSCULAR HEMOGLOBIN 30.3 pg (28.0-32.0); MEAN CORPUSCULAR HGB CONC 31.6 g/dL (31.0-37.0); MEAN CORPUSCULAR VOLUME 95.9 fL (81.0-99.0); MEAN PLATELET VOLUME 8.4 fl (7.4-10.4); PLATELET 211 x1000/uL (130-400); RED BLOOD CELL COUNT 2.93 mill/uL (4.2-5.4); RED CELL DISTRIBUTION WIDTH 18.2 % (11.6-14.6); WHITE BLOOD COUNT 21.8 x1000/uL (4.5-11.0)
[2024-04-22 05:50] LABS: DIFFERENTIAL COMMENT 1
[2024-04-22 05:54] LABS: CHLORIDE 107 mEq/L (98-107); POTASSIUM 4.5 mEq/L (3.5-5.1); SODIUM 137 mEq/L (136-145)
[2024-04-22 05:55] LABS: CARBON DIOXIDE 25 mEq/L (21-32)
[2024-04-22 05:56] LABS: CALCIUM 7.5 mg/dL (8.7-10.4)
[2024-04-22 06:00] LABS: CREATININE 0.6 mg/dL (0.6-1.0); GLUCOSE 94 mg/dL (70-105); UREA NITROGEN BLOOD 35 mg/dL (9-23)
[2024-04-22] MEDS ORDERED: LIDOCAINE HCL/EPINEPHRINE 1%-EPI 1:100,000 20 ML VIAL ONE (07:07)
[2024-04-22] MEDS ORDERED: MIDAZOLAM HCL 2 MG/2 ML VIAL ONE (08:27)
[2024-04-22 11:37] LABS: ANISOCYTOSIS 2+; PLATELET ESTIMATE NORMAL
[2024-04-22 12:11] LABS: BG BASE EXCESS -5.2 mmol/L (-2.0-2.0); BG CARBOXYHEMOGLOBIN 1.3 % (0.5-1.5); BG DEOXYHEMOGLOBIN 2.4 % (0.0-5.0); BG FRACTION INSPIRED OXYGEN 30; BG HCO3 ACT 20.6 mmol/L (22.0-26.0); BG METHEMOGLOBIN 0.3 % (0.0-1.5); BG OXYGEN SATURATION 97.6 % (92.0-98.5); BG PCO2 41.2 mmHg (35.0-45.0); BG PH 7.317 (7.350-7.450); BG PO2 101.3 mmHg (75.0-100.0); BG SAMPLE SITE RIGHT BRACHIAL; BG TOTAL HEMOGLOBIN 11.2 g/dL (12.0-18.0); BG VENT MODE VENT - AC
[2024-04-23] VITALS (109 sets, daily range): BP systolic 59–134; BP diastolic 37–94; PULSE 68–84; RESP 12–26; TEMP 97.4–98.3
[2024-04-23 06:09] LABS: HEMATOCRIT. 28.3 % (36.0-48.0); HEMOGLOBIN. 8.9 g/dL (12.0-16.0); MEAN CORPUSCULAR HEMOGLOBIN 30.7 pg (28.0-32.0); MEAN CORPUSCULAR HGB CONC 31.4 g/dL (31.0-37.0); MEAN CORPUSCULAR VOLUME 97.8 fL (81.0-99.0); MEAN PLATELET VOLUME 8.5 fl (7.4-10.4); PLATELET 244 x1000/uL (130-400); WHITE BLOOD COUNT 22.6 x1000/uL (4.5-11.0)
[2024-04-23 06:20] LABS: CHLORIDE 111 mEq/L (98-107); POTASSIUM 4.6 mEq/L (3.5-5.1); SODIUM 139 mEq/L (136-145)
[2024-04-23 06:21] LABS: CARBON DIOXIDE 25 mEq/L (21-32)
[2024-04-23 06:22] LABS: CALCIUM 7.4 mg/dL (8.7-10.4)
[2024-04-23 06:25] LABS: DIFFERENTIAL COMMENT 1
[2024-04-23 06:26] LABS: CREATININE 0.6 mg/dL (0.6-1.0); GLUCOSE 110 mg/dL (70-105)
[2024-04-23 06:27] LABS: UREA NITROGEN BLOOD 37 mg/dL (9-23)
[2024-04-23 06:29] LABS: DIGOXIN 1.9 ng/mL (0.8-2.0)
[2024-04-23 08:26] LABS: BG BASE EXCESS -4.5 mmol/L (-2.0-2.0); BG CARBOXYHEMOGLOBIN 0.7 % (0.5-1.5); BG DEOXYHEMOGLOBIN 4.2 % (0.0-5.0); BG FRACTION INSPIRED OXYGEN 30; BG HCO3 ACT 21.6 mmol/L (22.0-26.0); BG METHEMOGLOBIN 0.5 % (0.0-1.5); BG OXYGEN SATURATION 95.7 % (92.0-98.5); BG OXYHEMOGLOBIN 94.6 % (94.0-97.0); BG PCO2 44.7 mmHg (35.0-45.0); BG PH 7.303 (7.350-7.450); BG PO2 86.2 mmHg (75.0-100.0); BG SAMPLE SITE RIGHT RADIAL; BG TOTAL HEMOGLOBIN 9.6 g/dL (12.0-18.0); BG VENT MODE VENT - AC
[2024-04-23] MEDS: SERTRALINE HCL 50MG TABLET PO SCH (08:36)
[2024-04-23 17:06] LABS: ANTI-MYELOPEROXIDASE AB < 0.2 units (0.0-0.9); ANTI-PROTEINASE 3 ABS < 0.2 units (0.0-0.9)
[2024-04-23 17:39] LABS: PLATELET ESTIMATE NORMAL
[2024-04-23] MEDS: DEXTROSE 50% WATER 50ML SYRINGE IV PRN (22:15)
[2024-04-23] MEDS ORDERED: HYDROCODONE/ACETAMINOPHEN 5/325MG TABLET NG PRN (22:45)
[2024-04-23] MEDS ORDERED: NALOXONE HCL 0.4MG/ML 1ML VIAL IV PRN (22:45)
[2024-04-23] MEDS ORDERED: NALOXONE HCL 0.4MG/ML VIAL IV PRN (23:00)
[2024-04-24] VITALS (73 sets, daily range): BP systolic 57–147; BP diastolic 32–128; PULSE 63–89; RESP 12–27; TEMP 97.3–97.6; O2SAT 99
[2024-04-24 07:20] LABS: HEMATOCRIT. 26.8 % (36.0-48.0); HEMOGLOBIN. 8.2 g/dL (12.0-16.0); MEAN CORPUSCULAR HGB CONC 30.4 g/dL (31.0-37.0); MEAN CORPUSCULAR VOLUME 98.7 fL (81.0-99.0); MEAN PLATELET VOLUME 8.8 fl (7.4-10.4); PLATELET 215 x1000/uL (130-400); RED BLOOD CELL COUNT 2.72 mill/uL (4.2-5.4); WHITE BLOOD COUNT 22.4 x1000/uL (4.5-11.0)
[2024-04-24 07:21] LABS: CHLORIDE 111 mEq/L (98-107); SODIUM 139 mEq/L (136-145)
[2024-04-24 07:22] LABS: CARBON DIOXIDE 24 mEq/L (21-32)
[2024-04-24 07:23] LABS: CALCIUM 7.6 mg/dL (8.7-10.4)
[2024-04-24 07:24] LABS: DIFFERENTIAL COMMENT 1
[2024-04-24 07:27] LABS: CREATININE 0.7 mg/dL (0.6-1.0)
[2024-04-24 07:28] LABS: GLUCOSE 118 mg/dL (70-105); UREA NITROGEN BLOOD 45 mg/dL (9-23)
[2024-04-24 07:51] LABS: BG BASE EXCESS -5.1 mmol/L (-2.0-2.0); BG CARBOXYHEMOGLOBIN 1.2 % (0.5-1.5); BG DEOXYHEMOGLOBIN 2.7 % (0.0-5.0); BG FRACTION INSPIRED OXYGEN 30; BG HCO3 ACT 20.7 mmol/L (22.0-26.0); BG METHEMOGLOBIN 0.2 % (0.0-1.5); BG OXYGEN SATURATION 97.3 % (92.0-98.5); BG OXYHEMOGLOBIN 95.9 % (94.0-97.0); BG PCO2 41.5 mmHg (35.0-45.0); BG PH 7.316 (7.350-7.450); BG SAMPLE SITE RIGHT BRACHIAL; BG VENT MODE VENT - AC
[2024-04-24 07:54] LABS: PROTHROMBIN TIME 10.7 sec (9.6-11.0)
[2024-04-24] MEDS ORDERED: DEXTROSE 10% WATER 1,000 ML IV SCH (09:15)
[2024-04-24] MEDS: FUROSEMIDE 40MG/4ML VIAL IVP SCH (10:58)
[2024-04-24] MEDS: DEXT 10% WATER 1,000 ML IV SCH (10:59)
[2024-04-24 12:03] LABS: ANISOCYTOSIS 2+; PLATELET ESTIMATE NORMAL
[2024-04-25] MEDS ORDERED: DIGOXIN 125MCG TABLET PO SCH (18:00)
[2024-04-26 13:06] LABS: ATYPICAL P-ANCA <1:20 titer (Neg:<1:20); CYTOPLASMIC C-ANCA <1:20 titer (Neg:<1:20); PERINUCLEAR P-ANCA <1:20 titer (Neg:<1:20)
== END 2024-04-24 16:00 | DRG 4 ==
LOC: ER 18:32 → EDBEDREQ 21:07 → EDBEDREQTM 21:07 → EDBEDREQSVC 21:07 → 8WST 23:06 → CVICU 04-10 20:30
PROVIDERS: ADMIT Family Medicine Adult Medicine; ATTEND Family Medicine Adult Medicine
PROC: 5A1955Z Respiratory Ventilation, Greater than 96 Consecutive Hours (ICD-10-PCS; 2024-04-10)
PROC: 0BH17EZ Insertion of Endotracheal Airway into Trachea, Via Natural or Artificial Opening (ICD-10-PCS; 2024-04-10)
PROC: 02HV33Z Insertion of Infusion Device into Superior Vena Cava, Percutaneous Approach (ICD-10-PCS; 2024-04-11)
PROC: B548ZZA Ultrasonography of Superior Vena Cava, Guidance (ICD-10-PCS; 2024-04-11)
PROC: 02HV33Z Insertion of Infusion Device into Superior Vena Cava, Percutaneous Approach (ICD-10-PCS; 2024-04-12)
PROC: B548ZZA Ultrasonography of Superior Vena Cava, Guidance (ICD-10-PCS; 2024-04-12)
PROC: 30233N1 Transfusion of Nonautologous Red Blood Cells into Peripheral Vein, Percutaneous Approach (ICD-10-PCS; 2024-04-14)
PROC: 0B110F4 Bypass Trachea to Cutaneous with Tracheostomy Device, Open Approach (ICD-10-PCS; principal; 2024-04-22)
DX: A41.9 Sepsis, unspecified organism (principal); E43 Unspecified severe protein-calorie malnutrition; J69.0 Pneumonitis due to inhalation of food and vomit; G92.8 Other toxic encephalopathy; J96.22 Acute and chronic respiratory failure with hypercapnia; R65.21 Severe sepsis with septic shock; J96.21 Acute and chronic respiratory failure with hypoxia; I50.21 Acute systolic (congestive) heart failure; E87.1 Hypo-osmolality and hyponatremia; I42.9 Cardiomyopathy, unspecified; I48.20 Chronic atrial fibrillation, unspecified; J44.0 Chronic obstructive pulmonary disease with (acute) lower respiratory infection; N17.9 Acute kidney failure, unspecified; N39.0 Urinary tract infection, site not specified; Z16.13 Resistance to carbapenem; Z99.11 Dependence on respirator [ventilator] status; J90 Pleural effusion, not elsewhere classified; E87.6 Hypokalemia; I11.0 Hypertensive heart disease with heart failure; K11.7 Disturbances of salivary secretion; E78.5 Hyperlipidemia, unspecified; E83.39 Other disorders of phosphorus metabolism; E83.42 Hypomagnesemia; E83.51 Hypocalcemia; N28.1 Cyst of kidney, acquired; S51.811A Laceration without foreign body of right forearm, initial encounter; N20.0 Calculus of kidney; S51.812A Laceration without foreign body of left forearm, initial encounter; B96.5 Pseudomonas (aeruginosa) (mallei) (pseudomallei) as the cause of diseases classified elsewhere; D64.9 Anemia, unspecified; L89.150 Pressure ulcer of sacral region, unstageable; E88.09 Other disorders of plasma-protein metabolism, not elsewhere classified; F32.A Depression, unspecified; G25.0 Essential tremor; R13.12 Dysphagia, oropharyngeal phase; R68.2 Dry mouth, unspecified; R73.9 Hyperglycemia, unspecified; Z98.84 Bariatric surgery status; Z79.01 Long term (current) use of anticoagulants; Z86.73 Personal history of transient ischemic attack (TIA), and cerebral infarction without residual deficits; Z74.01 Bed confinement status; Z88.8 Allergy status to other drugs, medicaments and biological substances; Z79.899 Other long term (current) drug therapy; Z68.33 Body mass index [BMI] 33.0-33.9, adult; X58.XXXA Exposure to other specified factors, initial encounter; Y93.89 Activity, other specified; Y92.89 Other specified places as the place of occurrence of the external cause; Y99.8 Other external cause status
CPT/HCPCS: 31500; 36415; 36573; 36600; 70551; 71045; 71250; 72148; 72195; 74176; 76705; 80048; 80053; 80076; 80162; 80202; 81003; 82040; 82270; 82375; 82533; 82550; 82607; 82728; 82746; 82805; 82962; 83036; 83520; 83540; 83550; 83605; 83615; 83735; 83880; 84100; 84132; 84134; 84145; 84300; 84484; 85014; 85018; 85025; 85027; 85044; 85651; 86038; 86256; 86850; 86900; 86920; 87070; 87186; 92610; 93005; 93306; 93923; 93970; 94002; 94003; 94640; 94644; 97162; 97166; 99285; A6261; C1725; C9113; J0282; J0330; J0610; J0696; J0770; J1650; J1815; J1940; J2185; J2250; J2370; J2405; J2543; J3010; J3260; J3370; J3475; J3480; J3490; J7030; J7050; J7060; J7626; P9016; P9041; P9047; A4315